=== PATIENT | male | born 1955 | race Caucasian/White ===

== ENCOUNTER 2022-02-26 07:56 | Outpatient (REF) | payer OTHER, SELFPAY ==
[2022-02-26 11:54] LABS: MANUAL DIFF FLAG NO
[2022-02-26 11:56] LABS: Appearance Urine CLOUDY; Color Urine YELLOW; Glucose Urine UA NEG (NEG); Leukocyte Esterase Urine 1+ (NEG); Nitrite Urine NEG (NEG); Specific Gravity - Urine 1.025 (1.005-1.025); Urine Blood TRACE (NEG); Urine Ketones NEG (NEG); Urine Protein NEG (NEG-TRACE)
[2022-02-26 12:08] LABS: Basophils Percent Auto 0.4 % (0-2); Eosinophils Absolute Auto 0.1 X10*3/uL (0.0-0.4); Eosinophils Percent Auto 1.6 % (0-4); Hematocrit 40.7 % (42.0-52.0); Hemoglobin 13.6 g/dl (14.0-18.0); Imm Gran Abs Auto 0.01 X10*3/uL (0.00-0.03); Imm Gran Pct Auto 0.2 % (0.0-0.4); Lymphocytes Absolute Auto 1.6 X10*3/uL (1.2-4.9); Lymphocytes Percent Auto 28.3 % (20-40); Mean Corpuscular HGB Conc 33.4 g/dl (31.0-36.0); Mean Corpuscular Hemoglobin 32.5 pg (27.0-33.0); Mean Corpuscular Volume 97.1 fL (80.0-98.0); Mean Platelet Volume 9.7 fL (9.4-12.4); Monocytes Absolute Auto 0.4 X10*3/uL (0.1-1.2); Monocytes Percent Auto 7.3 % (2-11); Neutrophils Absolute Auto 3.5 x10*3/uL (2.0-8.3); Neutrophils Percent Auto 62.2 % (45-73); Platelet Count 275 X10*3/uL (160-400); Red Blood Count 4.19 X10*6/uL (4.60-5.80); Red Cell Distribution Width 12.4 % (11.0-16.0); White Blood Count 5.6 X10*3/uL (4.8-10.8)
[2022-02-26 12:24] LABS: Alanine Aminotransferase 27 U/L (0-40); Albumin Level 4.1 g/dL (3.5-5.0); Alkaline Phosphatase 60 U/L (39-117); Anion Gap 13 (12-20); Aspartate Amino Transferase 23 U/L (5-37); Blood Urea Nitrogen 13 mg/dL (9-16); Calcium 9.1 mg/dL (8.4-10.2); Carbon Dioxide 24 mmol/L (22-29); Chloride 104 mmol/L (96-108); Cholesterol 168 mg/dL; Estimated Glomerular Filt Rate > 60; Glucose Fasting 101 mg/dL (60-99); HDL Cholesterol 48 mg/dL; LDL Cholesterol Calculated 108 mg/dl; Potassium 4.1 mmol/L (3.3-5.1); Sodium 137 mmol/L (135-145); Total Protein 7.2 g/dL (6.5-8.0); Triglycerides 63 mg/dL
[2022-02-26 12:42] LABS: Amorphous Sediment Urine 2+ /LPF; Bacteria Urine 1+ /LPF; RBC Urine 0-2 /HPF (0)
[2022-02-26 12:46] LABS: PSA,Total (Free>4and<10) 1.13 ng/mL (0.00-4.00); Thyroid Stimulating Hormone 1.72 uIU/mL (0.32-4.0); Vitamin D 25-OH Total 35.6 ng/mL (>30)
== END 2022-02-26 07:57 | disposition home or self-care (01) ==
LOC: HO.HMGCLDS 07:56
PROVIDERS: PCP Internal Medicine; Visit Provider Internal Medicine
DX: Z00.00 Encounter for general adult medical examination without abnormal findings (principal); Z12.5 Encounter for screening for malignant neoplasm of prostate; E78.00 Pure hypercholesterolemia, unspecified; E55.9 Vitamin D deficiency, unspecified
CPT/HCPCS: 36415; 80053; 80061; 81001; 82306; 84153; 84443; 85025

== ENCOUNTER 2023-01-20 11:21 | Outpatient (REF) | payer OTHER, SELFPAY ==
--- NOTE | ~2023-01-20 | XR_ITS ---
EXAMINATION: XR CHEST CLINICAL INFORMATION: Asbestos exposure. COMPARISON: Chest radiographs dated 05/18/2013. TECHNIQUE: 2 views of the chest were obtained. FINDINGS: No significant abnormality is noted involving the heart, lungs, mediastinum, bony thorax or soft tissues. XR/XR chest 2V IMPRESSION: No acute cardiopulmonary process.
== END 2023-01-20 11:22 | disposition home or self-care (01) ==
LOC: HO.HMGCX 11:21
PROVIDERS: PCP Internal Medicine; Visit Provider Internal Medicine
DX: Z77.090 Contact with and (suspected) exposure to asbestos (principal)
CPT/HCPCS: 71046

== ENCOUNTER 2023-02-07 07:20 | Outpatient (REF) | payer OTHER, SELFPAY ==
--- NOTE | ~2023-02-07 | CT_ITS ---
EXAMINATION: CT CHEST WITHOUT CONTRAST CLINICAL INFORMATION: Asbestos exposure COMPARISON: Previous chest CTA March 2008 and chest x-ray December 2022 TECHNIQUE: Multidetector volumetric CT imaging of the chest was done. Axial MIP volume rendering provided. Sagittal and coronal reformatted images were obtained. This CT examination was performed using dose optimization techniques as appropriate, variously including the following: *Automated exposure control *Adjustment of mA and/or kV according to patient size (this includes techniques or standardized protocols for targeted exams where dose is matched to indication/reason for exam; i.e. 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 The lungs are otherwise clear. No evidence of interstitial lung disease/asbestosis, emphysema or bronchiectasis. No endobronchial or endotracheal lesion. MEDIASTINUM: Small mediastinal lymph nodes. No enlarged lymph nodes. Normal heart size. Mild coronary artery and aortic valve calcification. No pericardial effusion. Normal caliber thoracic aorta. CORONARY ARTERY CALCIFICATION: Present, mild PLEURA: There is no pleural effusion. No pleural mass or thickening. No pleural calcification. AXILLA: No lymphadenopathy. UPPER ABDOMEN: Unremarkable. OSSEOUS STRUCTURES: Mild degenerative changes of the spine. CT/CT chest wo IV con IMPRESSION: No evidence of asbestos related pleural or pulmonary disease. Mild aortic valve and coronary artery calcification. Fleischner guidelines were followed.
== END 2023-02-07 07:21 | disposition home or self-care (01) ==
LOC: HO.CT 07:20
PROVIDERS: PCP Internal Medicine; Visit Provider Internal Medicine
DX: Z77.090 Contact with and (suspected) exposure to asbestos (principal)
CPT/HCPCS: 71250

== ENCOUNTER 2023-08-24 12:25 | Day surgery (SDC) | payer MEDICARE, SELFPAY ==
[2023-08-22 13:36] VITALS: BMI 29.4
--- NOTE | 2023-08-23 10:59 | P.CONAN_ITS ---
Documented by User: Terri Hoang NP 08/23/23 10:59 HPI - Anesthesia Eval Consult details Narrative: 68yo M for Colonoscopy [facility] Past Medical History Medical History Elevated cholesterol Surgical History Surgical History H/O colonoscopy Hx of cystoscopy Hx of knee surgery Hx of umbilical hernia repair Social History Social History (Updated 08/22/23 @ 13:26 by Daija Churchill RN) Household Members: Spouse Patient Tobacco Use Status: Never used Tobacco Use of substances other than those prescribed or required for medical reasons: No Are you DNR?: No Advance Directives: No Advance Directives Information Provided: Yes Meds Allergies Allergy/AdvReac Type Severity Reaction Status Date / Time Penicillins Allergy Mild RASH Verified 08/24/23 12:50 Home Medications Medication Instructions Recorded Confirmed Last Taken Type atorvastatin 40 mg tablet 40 mg PO DAILY 08/22/23 08/24/23 08/22/23 History cholecalciferol (vitamin D3) 25 25 mcg PO DAILY 08/22/23 08/24/23 08/22/23 History mcg (1,000 unit) tablet (Vitamin D3) vitamin B complex 1 tab PO DAILY 08/22/23 08/24/23 08/22/23 History Exam Height,Weight and Vital Signs: Height 5 ft 10 in Weight 92.986 kg Assessment and Plan Assessment Anesthesia Assessment: Chart Reviewed Documented by User: Grzegorz Marcano MD 08/24/23 13:09 [facility] Past Medical History Medical History Elevated cholesterol Family History Family history of problems with anesthesia: No Surgical History Surgical History H/O colonoscopy Hx of cystoscopy Hx of knee surgery Hx of umbilical hernia repair History of Problems with Anesthesia: No Social History Social History (Updated 08/22/23 @ 13:26 by Daija Churchill RN) Household Members: Spouse Patient Tobacco Use Status: Never used Tobacco Use of substances other than those prescribed or required for medical reasons: No Are you DNR?: No Advance Directives: No Advance Directives Information Provided: Yes Meds Allergies Allergy/AdvReac Type Severity Reaction Status Date / Time Penicillins Allergy Mild RASH Verified 08/24/23 12:50 Home Medications Medication Instructions Recorded Confirmed Last Taken Type atorvastatin 40 mg tablet 40 mg PO DAILY 08/22/23 08/24/23 08/22/23 History cholecalciferol (vitamin D3) 25 25 mcg PO DAILY 08/22/23 08/24/23 08/22/23 History mcg (1,000 unit) tablet (Vitamin D3) vitamin B complex 1 tab PO DAILY 08/22/23 08/24/23 08/22/23 History Exam Airway Mallampati Class: II TM Dist: >3cm Neck ROM: Full Loose/Missing/Broken Teeth: No Heart: ok Lungs: ok Assessment and Plan Assessment Anesthesia Assessment: Anesthesia Plan Discussed Final Anesthetic Review Family History of Problems with Anesthesia: No History of Problems with Anesthesia: No NPO: Yes ASA Class: II Final Preanesthetic Review: No Changes in Pt Med Stat, Meds/Allgs Chart Reviewed, Consent Obtained/Reviewed and Anes Risks/Benef Reviewed Patient Risk: Low Procedure Risk: Low Anesthetic Plan Anesthetic Plan: MAC: and Agree w/ Assess. and Plan Disposition: Standard PACU
[2023-08-24 12:42] VITALS: BMI 30.1
[2023-08-24 13:04] VITALS: BP 144/100; PULSE 78; RESP 16; TEMP 36.1; O2SAT 98
[2023-08-24] MEDS: Lactated Ringers 1,000 ML 100 ML IVCONT (13:06)
--- NOTE | 2023-08-24 14:07 | MHC.SHP ---
Pre-Procedural Eval Section A - 24 Hr Update-Section A only Date of Service: 08/24/23 The patient is an INPATIENT: No Changes since office visit: No Cold of Flu in the past 2 weeks, No New Medical Problems, No Changes in Medication and No Patient answered all questions The patient has been examined within 24 hours of the surgical procedure. The History & Physical has been completed within 30 days and I have reviewed it.: Yes Section B - Complete if H&P > 30 days Chief Complaint: Encounter for screening for malignant neoplasm of Allergies: Allergies Allergy/AdvReac Type Severity Reaction Status Date / Time Penicillins Allergy Mild RASH Verified 08/24/23 12:50 Plan I have reviewed the history and physical and performed a pertinent physical examination on my patient. No changes have occurred unless specified. Time Spent With Patient Time: Total time managing care of this patient today ____ minutes.
[2023-08-24 14:45] VITALS: BP 116/76; PULSE 80; RESP 18; TEMP 36.3; O2SAT 96
[2023-08-24 15:00] VITALS: BP 131/86; PULSE 66; RESP 16; TEMP 36.3; O2SAT 97
--- NOTE | 2023-08-24 15:33 | OP_ITS ---
DATE OF SERVICE: 08/24/2023 SURGEON: Stuart Decker MD INDICATIONS: Colon cancer screening. PREOPERATIVE DIAGNOSIS: POSTOPERATIVE DIAGNOSIS: PROCEDURE PERFORMED: Colonoscopy to the terminal ileum with snare polypectomy and biopsy. ESTIMATED BLOOD LOSS: COMPLICATIONS: ANESTHESIA: Monitored anesthesia care. ASSISTANTS: SPECIMENS: DESCRIPTION OF PROCEDURE: A history and physical performed. The risks and benefits of the procedure were explained to the patient. Informed consent was obtained. The patient was placed in the left lateral decubitus position. A digital rectal exam was performed and was found to be normal. The Olympus pediatric video colonoscope was introduced into the rectum and advanced to the cecum. The cecum was identified by transillumination, palpation, and identification of ileocecal valve. Examination was performed. The scope was removed. He tolerated the procedure well and was returned to recovery area in stable condition. FINDINGS: The terminal ileum was examined and appeared normal. The visualized colonic mucosa was normal. The quality of the prep was good. Multiple polyps were identified and removed using combination of snare polypectomy and biopsy. These were located on the ileocecal valve, at 80 cm, 75 cm, 50 cm and 2 at 20 cm. The largest measured approximately 10 mm and was located at 75 cm. Retroflexed examination showed moderate-sized internal hemorrhoids. IMPRESSION: Colon polyps. RECOMMENDATION: Follow up the biopsy results. MD JOSE ENRIQUE Blount/NEEMA / [id number] MTDD
== END 2023-08-24 15:35 | disposition home or self-care (01) ==
PROVIDERS: PCP Internal Medicine; Visit Provider Internal Medicine Gastroenterology
PROC: 0DJD8ZZ Inspection of Lower Intestinal Tract, Via Natural or Artificial Opening Endoscopic (ICD-10-PCS; CPT 45378; principal; 2023-08-24 13:50)
DX: Z12.11 Encounter for screening for malignant neoplasm of colon (principal); Z86.010 Personal history of colon polyps; D12.4 Benign neoplasm of descending colon; D12.5 Benign neoplasm of sigmoid colon; K64.8 Other hemorrhoids; E78.00 Pure hypercholesterolemia, unspecified; Z79.899 Other long term (current) drug therapy; Z88.0 Allergy status to penicillin; Z98.890 Other specified postprocedural states
CPT/HCPCS: 45385; 45380; 88305; J2704

== ENCOUNTER 2023-09-09 08:09 | Outpatient (REF) | payer MEDICARE, SELFPAY ==
[2023-09-09 11:09] LABS: MANUAL DIFF FLAG NO
[2023-09-09 11:21] LABS: Appearance Urine Turbid; Color Urine Dark Yellow; Glucose Urine UA Negative (Negative); Leukocyte Esterase Urine Negative (Negative); Nitrite Urine Negative (Negative); PH 5.5 (5.0-9.0); Specific Gravity - Urine 1.025 (1.005-1.025); Urine Blood Negative (Negative); Urine Ketones Negative (Negative); Urine Protein Negative (Neg-Trace)
[2023-09-09 11:52] LABS: Prostate Specific Antigen 1.98 ng/mL (<0.05-4.0)
[2023-09-09 11:59] LABS: Alanine Aminotransferase 31 U/L (0-40); Albumin Level 3.9 g/dL (3.5-5.0); Alkaline Phosphatase 77 U/L (39-117); Anion Gap 12 (12-20); Aspartate Amino Transferase 25 U/L (5-37); Bilirubin Total 0.6 mg/dL (0.0-1.0); Blood Urea Nitrogen 11 mg/dL (9-16); Carbon Dioxide 26 mmol/L (22-29); Chloride 107 mmol/L (96-108); Cholesterol 180 mg/dL (<200); Estimated Glomerular Filt Rate > 60; Glucose Fasting 106 mg/dL (60-99); HDL Cholesterol 51 mg/dL (>40); LDL Cholesterol Calculated 117 mg/dL (<100); Potassium 4.1 mmol/L (3.3-5.1); Sodium 141 mmol/L (135-145); Thyroid Stimulating Hormone 2.49 uIU/mL (0.32-4.0); Total Protein 7.2 g/dL (6.5-8.0); Triglycerides 63 mg/dL (<150); Vitamin D 25-OH Total 36.6 ng/mL (>30)
[2023-09-09 12:14] LABS: Basophils Percent Auto 0.7 % (0-2); Eosinophils Absolute Auto 0.1 X10*3/uL (0.0-0.4); Eosinophils Percent Auto 2.2 % (0-4); Hematocrit 42.6 % (42.0-52.0); Hemoglobin 14.2 g/dl (14.0-18.0); Imm Gran Abs Auto 0.03 X10*3/uL (0.00-0.03); Imm Gran Pct Auto 0.5 % (0.0-0.4); Lymphocytes Absolute Auto 1.7 X10*3/uL (1.2-4.9); Lymphocytes Percent Auto 28.6 % (20-40); Mean Corpuscular HGB Conc 33.3 g/dl (31.0-36.0); Mean Corpuscular Hemoglobin 32.5 pg (27.0-33.0); Mean Corpuscular Volume 97.5 fL (80.0-98.0); Mean Platelet Volume 8.2 fL (9.4-12.4); Monocytes Absolute Auto 0.5 X10*3/uL (0.1-1.2); Monocytes Percent Auto 8.5 % (2-11); Neutrophils Absolute Auto 3.6 x10*3/uL (2.0-8.3); Neutrophils Percent Auto 59.5 % (45-73); Platelet Count 528 X10*3/uL (160-400); Red Blood Count 4.37 X10*6/uL (4.60-5.80); Red Cell Distribution Width 12.4 % (11.0-16.0)
== END 2023-09-09 08:10 | disposition home or self-care (01) ==
LOC: HO.HMGCLDS 08:09
PROVIDERS: PCP Internal Medicine; Visit Provider Internal Medicine
DX: Z12.5 Encounter for screening for malignant neoplasm of prostate (principal); E78.00 Pure hypercholesterolemia, unspecified; E55.9 Vitamin D deficiency, unspecified
CPT/HCPCS: 36415; 80053; 80061; 81003; 82306; 84153; 84443; 85025

== ENCOUNTER 2024-04-11 11:43 | Outpatient (REF) | payer MEDICARE, SELFPAY ==
[2024-04-11 11:56] LABS: MANUAL DIFF FLAG NO
[2024-04-11 13:31] LABS: Basophils Percent Auto 0.4 % (0-2); Eosinophils Absolute Auto 0.1 X10*3/uL (0.0-0.4); Eosinophils Percent Auto 1.5 % (0-4); Hematocrit 45.4 % (42.0-52.0); Hemoglobin 15.1 g/dl (14.0-18.0); Imm Gran Abs Auto 0.03 X10*3/uL (0.00-0.03); Imm Gran Pct Auto 0.4 % (0.0-0.4); Lymphocytes Absolute Auto 1.7 X10*3/uL (1.2-4.9); Lymphocytes Percent Auto 24.8 % (20-40); Mean Corpuscular HGB Conc 33.3 g/dl (31.0-36.0); Mean Corpuscular Hemoglobin 32.5 pg (27.0-33.0); Mean Corpuscular Volume 97.6 fL (80.0-98.0); Mean Platelet Volume 8.6 fL (9.4-12.4); Monocytes Absolute Auto 0.6 X10*3/uL (0.1-1.2); Monocytes Percent Auto 8.6 % (2-11); Neutrophils Absolute Auto 4.4 x10*3/uL (2.0-8.3); Neutrophils Percent Auto 64.3 % (45-73); Platelet Count 414 X10*3/uL (160-400); Red Blood Count 4.65 X10*6/uL (4.60-5.80); Red Cell Distribution Width 12.4 % (11.0-16.0); White Blood Count 6.9 X10*3/uL (4.8-10.8)
== END 2024-04-11 11:44 | disposition home or self-care (01) ==
LOC: HO.LAB 11:43
PROVIDERS: PCP Internal Medicine; Visit Provider Internal Medicine
DX: Z00.00 Encounter for general adult medical examination without abnormal findings (principal); E78.00 Pure hypercholesterolemia, unspecified; E55.9 Vitamin D deficiency, unspecified
CPT/HCPCS: 36415; 85025

== ENCOUNTER → 2024-04-18 12:43 | Outpatient (REF) | payer MEDICARE, SELFPAY ==
--- NOTE | 2024-04-18 12:49 | CA_ITS ---
Transthoracic Echocardiogram Patient (Last, First, Middle): Tesfaye Carl James Gender: Male Date of : 1955 Age: 68 Procedure Date: 04/18/2024 Procedure Type: Transthoracic Echocardiogram Location: OP Height: 180.34 cm Weight: 90.72 kg BSA: 2.11 m2 Heart Rate: bpm BP: 110 / 60 mmHg National Sales: TO Referring MD: Tesfaye Cortez DO Symptoms: R01.1 SYSTOLIC MURMUR Study Quality: Adequate w/contrast ECG Rhythm: Atrial Fibrillation Conclusions: - The left ventricular systolic function is low normal. The visually estimated ejection fraction is between 50-55%. - There is mild calcification of the aortic valve. - There is mild mitral annular calcification. - Small plaque is seen in the sino tubular ridge. Findings Procedure Information Contrast agent, definity, is being given per protocol without apparent complications. Left Ventricle Normal left ventricular cavity size. There is mildly increased left ventricular wall thickness. The left ventricular systolic function is low normal. The visually estimated ejection fraction is between 50-55%. There is no evidence of regional wall motion abnormalities. Diastolic function is indeterminate on the basis of available data. Right Ventricle Normal right ventricular cavity size and systolic function. Atria The left atrium is mildly dilated. The right atrium is normal in size. Aortic Valve There is a normal trileaflet aortic valve. There is mild calcification of the aortic valve. There is no aortic valve stenosis. There is no aortic valve regurgitation. Mitral Valve There is mild mitral annular calcification. There is trace mitral valve regurgitation. There is no mitral valve stenosis. Pulmonic Valve The pulmonic valve is likely normal. Tricuspid Valve There is trace tricuspid valve regurgitation. Tricuspid regurgitation envelope is inadequate for calculation of right ventricular systolic pressure. Great Vessels Small plaque is seen in the sino tubular ridge. Top normal ascending aortic size. Venous The inferior vena cava is normal in size and collapses greater than 50% with inspiration. Pericardium/Pleural There is no evidence of pericardial effusion. Prior Study Comparison No prior study available for comparison. Measurements 2D Linear Measurements IVSd: 1.35 0.6-0.9/0.6-1.0 cm LVIDd: 4.07 3.9-5.3/4.2-5.9 cm LVIDd Index: 1.93 2.4-3.2/2.2-3.1 cm/m2 LVIDs: 2.89 2.0-3.6 cm LVPWd: 1.07 0.7-1.1 cm LA Diam: 3.40 2.7-3.8/3.0-4.0 cm LAIDs Index: 1.61 1.5-2.3 cm/m2 LV Mass: 214.18 67-162/88-224 g LV Mass Index: 101.51 43-95/49-115 g/m2 LVOT Diam: 2.30 3.0+(-)1.3 cm 2D Systolic Function EF 4C: 53.40 >55% EF 2C: 50.40 >55% EF BiP: 50.20 >55% Mitral Valve MV Pk E: 0.85 MV Decel Time: 161.00 E'Lateral: 11.30 E'Medial: 9.38 E/E' Med: 9.00 E/E' Lat: 7.50 PHT: 47.00 MVA PHT: 4.68 Decel Fillmore: 5.41 Aortic Valve AoV Pk Neeraj: 1.24 AoV Pk Grad: 6.00 LVOT LVOT Pk Neeraj: 0.75 LVOT Mn Neeraj: 0.54 LVOT VTI: 0.14 LVOT Pk Grad: 2.00 LVOT Mn Grad: 1.00 LVOT Diam: 2.30 LVOT Area: 4.15 Diastolic Function MV Pk E: 0.85 E'Medial: 9.38 E/E' Med: 9.00 E' Laterial: 11.30 E/E' Lat: 7.50 Right Ventricle TAPSE (mm): 11.10 TVS' Neeraj: 18.90 Tricuspid Valve RA Press: 3.00 Great Vessels Aorta Sinus of Valsalva: 4.13 2.0-3.[address] Ridge: 2.90 1.7-3.4 cm Ao Asc: 3.70 2.1-3.4 cm Updated in Other Vendor System with Status of Final Jared Knapp MD electronically signed on 04/19/2024 12:53:23 PM with status of Final
== END ==
LOC: HO.CARD 12:43
PROVIDERS: PCP Internal Medicine; Visit Provider Internal Medicine
DX: R01.1 Cardiac murmur, unspecified (principal)
CPT/HCPCS: 93306; Q9957

== ENCOUNTER → 2024-04-18 12:49 | Outpatient (BNV) | payer MEDICARE, SELFPAY | PROVIDERS: PCP Internal Medicine; Visit Provider Internal Medicine | DX: I35.8 Other nonrheumatic aortic valve disorders (principal); I34.81 Nonrheumatic mitral (valve) annulus calcification | CPT/HCPCS: 93306 ==

== ENCOUNTER → 2024-04-20 12:25 | Outpatient (REF) | payer MEDICARE, SELFPAY ==
--- NOTE | 2024-04-20 12:35 | ECG_ITS ---
Test Reason : outpatient check up Blood Pressure : / mmHG Vent. Rate : 070 BPM Atrial Rate : 070 BPM P-R Int : 196 ms QRS Dur : 092 ms QT Int : 402 ms P-R-T Axes : 046 -06 041 degrees QTc Int : 434 ms Normal sinus rhythm Normal ECG When compared with ECG of 17-AUG-2012 11:51, T wave inversion no longer evident in Inferior leads Referred By: Tesfaye Cortez Electronically Signed By:TESFAYE MAHAJAN
== END ==
LOC: HO.CARD 12:25
PROVIDERS: PCP Internal Medicine; Visit Provider Internal Medicine
DX: E78.00 Pure hypercholesterolemia, unspecified (principal)
CPT/HCPCS: 93005

== ENCOUNTER → 2024-05-08 08:23 | Outpatient (REF) | payer MEDICARE, SELFPAY ==
--- NOTE | 2024-05-08 08:26 | HM_ITS ---
* Total monitoring time 3 days. * Underlying rhythm is sinus with an average rate of 88/Min. * Frequent supraventricular ectopy with a burden of 5%. * Frequent ventricular ectopy with a burden of 2.9%. Rare couplets, triplets, bigeminy, trigeminy. * Mobitz type 1 second-degree heart block noted during sleep hours. * No patient markers or diary events. MTDD
== END ==
LOC: HO.CARD 08:23
PROVIDERS: PCP Internal Medicine; Visit Provider Internal Medicine
DX: I48.0 Paroxysmal atrial fibrillation (principal)
CPT/HCPCS: 93242

== ENCOUNTER → 2024-05-08 08:26 | Outpatient (BNV) | payer MEDICARE, SELFPAY | PROVIDERS: PCP Internal Medicine; Visit Provider Internal Medicine | DX: I47.10 Supraventricular tachycardia, unspecified (principal) | CPT/HCPCS: 93244 ==

== ENCOUNTER 2024-05-22 14:59 | Outpatient (AMB) | payer MEDICARE, SELFPAY ==
[2024-05-22 15:02] VITALS: BP 128/70; PULSE 78; BMI 28.2
--- NOTE | 2024-05-22 15:02 | MHC.OFFVIS ---
Vital Signs 05/22/24 15:02 Height 5 ft 10 in Weight 196 lb 3.382 oz BMI 28.2 BP 128/70 Blood Pressure Location Lt brachial Position Sitting Pulse 78 Pulse Source Pulse Oximeter Intake Visit Reasons: requested by Hs Allergies Penicillins Allergy (Mild, Verified 08/24/23 12:50) RASH Medication List - Last Reconciled 05/22/24 by Jared Knapp MD atorvastatin 40 mg PO DAILY cholecalciferol (vitamin D3) (Vitamin D3) 25 mcg PO DAILY vitamin B complex 1 tab PO DAILY HPI Comments Details: Tesfaye is here for consultation regarding arrhythmias. He had an echocardiogram for evaluation of cardiac murmur and it was felt that the rhythm during that study was atrial fibrillation. However, patient does not have a history of atrial fibrillation. His baseline EKG just shows sinus rhythm and a follow-up Holter only shows supraventricular/ventricular ectopy. Hence not entirely clear if it truly had atrial fibrillation during the echocardiogram or as the just frequent ectopy that appear to be possible atrial fibrillation. Any case, patient states he feels fine. He has no cardiac history or symptoms. However, almost 5-6 family members in your family have atrial fibrillation-mainly uncles. [facility] Medical History (Updated 05/22/24 @ 15:43 by Jared Knapp MD) Elevated cholesterol Surgical History H/O colonoscopy Hx of cystoscopy Hx of knee surgery Hx of umbilical hernia repair Family History (Updated 05/22/24 @ 15:05 by Farzana Neumann) Father Heart attack Social History (Updated 05/22/24 @ 15:06 by Farzana Neumann) Household Members: Spouse Alcohol intake: current Alcohol intake frequency: 0-2 drinks per day Patient Tobacco Use Status: Never used Tobacco Review of Systems Const Denies weakness ENT Denies dizziness Card Denies chest pain, Denies chest pain with activity, Denies syncope, Denies rapid heart rate, Denies pedal edema, Denies edema, Denies leg edema, Denies lightheadedness, Denies palpitations, Denies dyspnea, Denies dyspnea on exertion and Denies orthopnea Resp Denies cough, Denies dyspnea and Denies dyspnea on exertion GI Denies hematochezia and Denies change in stool character Musc Denies abnormal gait, Denies muscle cramps, Denies muscle weakness, Denies numbness, Denies radiating pain into limb and Denies tingling Neuro Denies abnormal gait, Denies dizziness, Denies syncope, Denies numbness, Denies tingling and Denies weakness Endo Denies palpitations Physical Exam Vital Signs: Last Vital Signs Pulse 78 05/22/24 15:02 BP 128/70 05/22/24 15:02 BMI result Body Mass Index 28.2 Const General: comfortable and no acute distress Orientation/consciousness: patient oriented x3 HEENT Other: Unremarkable Head: Yes normal to inspection Neck Neck: Yes normal visual inspection Chest Chest palpation & inspection: normal inspection of the chest Resp Auscultation: clear to auscultation bilaterally Cardio Palpation: normal PMI Heart sounds: S1 normal heart sound present, S2 normal heart sound present, no gallops, Murmur heart sound present systolic II/ and at the right sternal border and no rubs GI Palpation (GI): Soft to palpation Back/Spine/Pelvis Other: unremarkable Skin General skin exam: no rashes or lesions noted Neuro General: patient oriented x3 Extrem General: Yes normal to inspection Psych Mental Status: mental status grossly normal Assessment & Plan Assessment & Plan (1) Atrial arrhythmia: Code(s): I49.8 - Other specified cardiac arrhythmias Category: Medical (2) PVCs (premature ventricular contractions): Code(s): I49.3 - Ventricular premature depolarization Category: Medical (3) Aortic valve calcification: Code(s): I35.9 - Nonrheumatic aortic valve disorder, unspecified Category: Medical Plan Cardiac studies reviewed. In the echocardiogram, rhythm possibly atrial fibrillation but cannot distinguish if it is just frequent PACs. LVEF is 50-55%. Mildly dilated left atrium. Mild aortic/mitral calcification. Small plaque in the sinotubular ridge. In the EKG, underlying rhythm is sinus at 70/Min; no significant ST-T changes and otherwise unremarkable. In the Holter monitor, frequent supraventricular/ventricular ectopy noted. Mobitz type 1 second-degree heart block during sleep hours. Overall, suggestion of atrial fibrillation on the rhythm strip during echocardiogram but Holter showing frequent supraventricular/ventricular ectopy. Findings discussed with patient. Suggested longer duration monitor, about 30 days. If that is also unremarkable, we can just possibly monitor him. We will hold off on empiric anticoagulation at this time. He also has a relatively low thromboembolic risk. Due to frequent PVCs, we can get a stress test to look for any NSVT as well as any perfusion abnormalities of significance. Follow-up after the above. Orders: Orders ECG 30 day event monitor Today I48.0 - Paroxysmal atrial fibrillation CA stress test Today I49.3 - Ventricular premature depolarization NM cardiolite stress test Today I49.3 - Ventricular premature depolarization Coding Level of Care Code New Pt Level 4 (82046) Diagnoses Atrial arrhythmia I49.8 PVCs (premature ventricular contractions) I49.3 Aortic valve calcification I35.9
== END 2024-05-22 15:27 | disposition home or self-care (01) ==
LOC: HO.HCS 14:59
PROVIDERS: PCP Internal Medicine; Visit Provider Internal Medicine
DX: I49.8 Other specified cardiac arrhythmias (principal); I49.3 Ventricular premature depolarization; I35.9 Nonrheumatic aortic valve disorder, unspecified
CPT/HCPCS: 99214

== ENCOUNTER → 2024-05-22 14:59 | Outpatient (BNVA) | payer MEDICARE, SELFPAY | PROVIDERS: PCP Internal Medicine; Visit Provider Internal Medicine | DX: I49.3 Ventricular premature depolarization (principal); I49.8 Other specified cardiac arrhythmias; I48.0 Paroxysmal atrial fibrillation; I35.9 Nonrheumatic aortic valve disorder, unspecified | CPT/HCPCS: 99212 ==

== ENCOUNTER → 2024-05-28 10:58 | Outpatient (REF) | payer MEDICARE, SELFPAY ==
--- NOTE | 2024-05-28 11:00 | HM_ITS ---
Cardiac event monitor Indication: Paroxysmal atrial fibrillation Technique: Patient was monitored from 05/28/2024 to 06/27/2024 for total period of 30 days. Where time was 19.7 days Findings: Baseline was normal sinus rhythm with average heart rate of 74 beats per minute. No significant bradycardia or pauses were noted. Intermittent episodes of atrial fibrillation noted with total burden of 1.04%, with the fastest heart rate during atrial fibrillation of 127 beats per minute. Occasional PACs noted with total burden of less than 1%. Occasional PVCs noted with total burden of less than 1%. Few salvos of wide complex rhythm noted, few were during episodes of atrial fibrillation which could represent aberrant conduction. One was during sinus rhythm which could represent nonsustained VT, at 3 beats Patient reported 1 event during the ventricular triplet. Patient reported to other events during sinus rhythm and 1 event during a PAC. Conclusion: 1. Baseline was normal sinus rhythm with no significant pauses 2. Intermittent episodes of atrial fibrillation with total burden of 1.04% 3. Occasional PACs and PVCs noted with wide complex salvos suggestive of nonsustained VT 4. Patient reported multiple events not consistent with arrhythmias at all time MTDD
== END ==
LOC: HO.CARD 10:58
PROVIDERS: PCP Internal Medicine; Visit Provider Internal Medicine
DX: I48.0 Paroxysmal atrial fibrillation (principal)
CPT/HCPCS: 93270

== ENCOUNTER → 2024-05-28 11:00 | Outpatient (BNV) | payer MEDICARE, SELFPAY | PROVIDERS: PCP Internal Medicine; Visit Provider Internal Medicine Cardiovascular Disease | DX: I48.91 Unspecified atrial fibrillation (principal); I49.1 Atrial premature depolarization; I49.3 Ventricular premature depolarization | CPT/HCPCS: 93272 ==

== ENCOUNTER → 2024-08-13 07:52 | Outpatient (REF) | payer MEDICARE, SELFPAY ==
--- OUTSIDE RECORDS SUMMARY | 2024-08-13 07:55 | XMS_ITS | Continuity of Care Document ---
Author Organization [facility], [facility] 2nd floor Address [address] [place] [address] Care Team Providers Care Production Aide Name Role Phone FINN WALTERS Primary Care Provider Assessment No assessment recorded. Plan of Treatment Reminders Order Date Submit Date Provider Last Modified By Organization Details Last Modified Time Details Appointments None record ed. Lab None record ed. Referral None record ed. Procedures None record ed. Surgeries None record ed. Imaging None record ed. Medication Orders None record ed. Patient TargetsNo targets recorded. Patient InstructionsNo instructions recorded. Reason for Referral None Reported. Procedures Surgical History Date Name Laterality Status Provider Name and Address Organization Details Recorded Time 4 Sports Shoulder 4&1 completed Fabián Blackburn MD [address] [facility] [address], [place], [address], [facility] 04/12/2024 11:54:28 Imaging Results None recorded. Procedure Notes None recorded. Medical Equipment None Reported. Allergies Allergen ID Allergen Name Allergen Category Reaction Reaction Severity Criticality Documentation Date Start Date Code Code System Note Provider Name and Address Organization Details Recorded Time 475124 Product containin g penicilli n and antibioti c (product) medicatio n Not available Not available Not available 01/10/2024 19721 05 SNOMED KARINA gautam, [facility] 4 16:29:24 Medications Name Sig Start Date Stop Date Status Note LastModified by Organization Details LastModified Time atorvastati n 40 mg tablet TAKE 1 TABLET BY MOUTH EVERY DAY FOR 90 DAYS active Not Available Not Available No t Available azithromyci n 250 mg tablet TAKE 2 TABLETS BY MOUTH TODAY, THEN TAKE 1 TABLET DAILY FOR 4 DAYS 06/18 /2024 completed Not Available Not Available Not Available fluocinonid e 0.05 % topical gel PLEASE SEE ATTACHED FOR DETAILED DIRECTION S 08/09 completed Not Available Not Available Not Available meloxicam 15 mg tablet TAKE 1 TABLET EVERY DAY BY ORAL ROUTE AFTER MEAL(S). 08/09 completed Not Available Not Available Not Available fluorouraci l 5 % topical cream PLEASE SEE ATTACHED FOR DETAILED DIRECTION S active Not Available Not Available No t Available fluocinonid e 0.05 % topical ointment PLEASE SEE ATTACHED FOR DETAILED DIRECTION S active Not Available Not Available No t Available triamcinolo ne acetonide 0.1 % topical cream PLEASE SEE ATTACHED FOR DETAILED DIRECTION S 08/09 completed Not Available Not Available Not Available cholecalcif gene (vitamin D3) 25 mcg (1,000 unit) capsule TAKE 1 CAPSULE BY MOUTH EVERY DAY FOR 90 DAYS active Not Available Not Available No t Available Vitamin D3 25 mcg (1,000 unit) tablet TAKE 1 TABLET BY MOUTH EVERY DAY active Not Available Not Available No t Available tadalafil 20 mg tablet TAKE 1 TABLET BY MOUTH EVERY DAY NEEDED FOR 30 DAYS active Not Available Not Available No t Available metoprolol tartrate 25 mg tablet TAKE 1 TABLET BY MOUTH TWICE DAILY active Not Available Not Available No t Available Eliquis 5 mg tablet TAKE 1 TABLET BY MOUTH TWICE A DAY active Not Available Not Available No t Available Vitals Date Recorded Body height Body mass index (BMI) Body weight Provider Name and Address Organization Details Last Updated DateTime 05/23/2024 180.34 cm 27.9 kg/m2 81754.47 g Ruy Naranjo PA-C [address] [place] [address] [address], [place], [address], [place] - [facility] 05/23/2024 08:40:57 Social History None recorded. Functional Status None recorded. Mental Status None recorded. Family History Nothing Reported. Medical History Condition Response Allergies/Hayfever N Coronary Artery Disease N Anxiety/Depression N Breathing or lung disorders N Emphysema N Nerve Disorders N Thyroid Problems N COPD N Pacemaker N Anemia N Kidney/Bladder Problems N Vascular Disease N Heart Trouble N Heart Attack ([place]) N Gastrointestinal Disease N Cholesterol Y Diabetes N Autoimmune disease N Inflammatory Joint disease N Bleeding Disorder N Orthotics N Arthritis N Seizures/Epilepsy N Blood Clot N AIDS/HIV N Congestive Heart Failure (CHF) N Acid Reflux (GERD) N Cancer N Stroke N Asthma N Circulation Problems N Peripheral Vascular Disease N Sleep Apnea N Hepatitis N Heart Disease N Rheumatoid Arthritis N Arrhythmia N Pulmonary Embolism N Headaches N Fibromyalgia N Hypertension N Osteoporosis N Past Encounters Encounter ID Performer Location Encounter Start Date Encounter Closed Date Diagnosis/Indication Diagnosis SNOMED-CT Code Diagnosis ICD10 Code Diagnosis Note [id number] [facility] 2nd floor [address] [place] [address] 05/23/2024 08:30:53 06/14/2024 14:12:04 Calcific tendinitis of left shoulder [id number] 63368 M75.32 Health Concerns Section Related Observation LastModified by Organization Detai ls LastModified Time None Recorded Concern Status LastModified by Organization Details LastModified Time None Recorded Payers Encounter Date Sequence Insurance Name Policy Number Policy Ernandez Covered Member ID Ernandez Member ID Guarantor Name 05/23/2024 1 [facility]: MEDIC[place] BLUE (MEDICARE REPLACEMENT PPO) [id number] Finn Ramirez Siddhartha [id number] Finn Carl Notes Date Note Type Note Provider Name and Address Organization Details Recorded Time 05/23/2024 text/html I am seeing the patient today under the supervision of Dr. Blackburn who was available but who did not see the patient.Finn dominguez left shoulder calcific tendinopathy doing well. Prior injection by Dr. Blackburn resolve symptoms.Past family, medical, social history and review of systems has been reviewed, updated and is located in the patient? s chart.Examination: ROM full, 5/5 strength including rotator cuff and periscapular musculature. Good Muscle bulk and strength without atrophy. No evidence of instability of the shoulder. Negative impingement signs. Negative AC joint tenderness. Negative Speed's, Negative O'briens, Negative Zuri.Impression: Resolved left shoulder pain secondary to calcific tendinopathyPlan: Discussed slow transition her normal activities. Follow up us as needed. Ruy Naranjo PA-C [address], [place], [address], [facility] - [facility] 05/23/2024 09:08:13
--- OUTSIDE RECORDS SUMMARY | 2024-08-13 07:55 | XMS_ITS | Data Portability ---
Author Organization [facility], [facility] Address [address] [place] [address] Care Team Providers Care Butadiene Converter Utility Operator Name Role Phone FINN WALTERS Primary Care Provider Assessment Encounter Date Assessment Date Assessment LastModified by Organization Details LastModified Time 04/12/2024 04/12/2024 Dx:Left shoulder calcific tendinitis Interval History:68-year-old gentleman, several year history of left shoulder pain with diminished motion, atraumatic onset, no trreatment to date. SocHx: nonsmoker, nondrinker Past Medical/Surgical History/Meds/Allerg ies reviewed and charted ROS: negative Physical Exam: afebrile, vital signs stable, in no apparent distress, oriented to person/place/time. Gait symmetric. Skin intact without erythema. Heart RRR Lungs: clear Abdomen soft, nontender. LeftSHOULDER: no redness, warmth, deformity. Range of motion 50%full in all planes with Pain beyond. Strength 5/5 all muscle groups. Apprehension negative. Impingement sign Positive. Acromioclavicular joint nontender without irritability with cross body adduction. Neurovascular Exam wnl. Contralateral SHOULDER: no redness, warmth, deformity. Range of motion full in all planes with no stiffnes. Strength 5/5 all muscle groups. Apprehension negative. Impingement sign negative. Acromioclavicular joint nontender without irritability to cross body adduction. Neurovascular Exam wnl. New Studies: 4 views left shoulder, moderate calcific deposit supraspinatus insertion Impression:Left shoulder calcific tendinitis Plan: 1.Left shoulder(s) was/were prepped with Betadine and injected subacromially with 1cc Kenalog 40mg/cc and 8cc ??% Marcaine without complication. The patient tolerated the procedure well. 2. Follow-up 6 weeks, consider arthroscopy if still symptomatic [facility] speech recognition ict teacher software was used to create portions of this document. An attempt at proofreading has been made to minimize errors. Please call for corrections. [email or web address] Not available 04/12/2024 11:53:59 Plan of Treatment Reminders Order Date Submit Date Provider Last Modified By Organization Details Last Modified Time Details Appointments None recorded. Lab None recorded. Referral None recorded. Procedures None recorded. Surgeries None recorded. Imaging XR, knee, 4 or more view - ROOM 1 2023 024 [email or web address] [facility], [address], [place], [address], 4 08:28:57 XR, shoulder, 2 or more view - 4v lt shoulder room 213 2023 024 [email or web address] [facility], [address], [address], [place], [address], 4 11:45:57 Medication Orders None recorded. Patient TargetsNo targets recorded. Patient InstructionsNo instructions recorded. Reason for Referral None Reported. Results Created Date Observation Date Name Description Value Unit Range Abnormal Flag Note LastModifiedBy Organization Detail LastModifiedTime 01/10/2001/10/2024 XR, knee, 4 or more view [email or web address] ?Encry pted=s hAaTro YD8dLq bEUv6g %2BXZw aYqtaq 0bqfl% 2Fg9IQ a4ajBk vP9nXo QUaueC m3YtLR FvZlgJ JJ8mAn HZtai3 8x5344 AC0Kub HmMWaP eUC8mr 84%3D INTERFACE [facility] [address], [place], [address], 01/10/2024 09:26:08 01/10/20 24 01/10/2024 XR, knee, 4 or more view http:/ [email or web address] ?Encry pted=s hAaTro YD8dLq bEUv6g %2BXZw aYqtaq 0bqfl% 2Fg9IQ a4ajBk vP9nXo QUaueC m3YtLR FvZlgJ JJ8mAn HZtai3 5a2850 AC0Kub HmMWaP eUC8mr 84%3D INTERFACE [facility] [address], [place], [address], 01/10/2024 09:26:10 01/13/20 24 01/11/2024 MRI, knee, w/o contr ast No observ ation record ed. BRIAN [facility] [place] [address] [facility] [address], [place], [address], 01/13/2024 13:52:51 04/12/20 24 04/12/2024 XR, shoul rio, 2 or more view [email or web address]:/ [email or web address] ?Encry pted=s hAaTro YD8dLq bEUv6g %2BXZw aYqtaq 0bqfl% 2Fg9IQ a4ajBk vP9nXo QUaueC m3YtLR FvZl JJ8[place] HZtai3 0a4832 AC0Kqa nuHVqu lKiQtr MwF INTERFACE [facility] [address] [facility] [address] [address], [place], [address], 04/12/2024 11:21:04 04/12/20 24 04/12/2024 XR, shoul rio, 2 or more view http:/ [email or web address] ?Encry pted=s hAaTro YD8dLq bEUv6g %2BXZw aYqtaq 0bqfl% 2Fg9IQ a4ajBk vP9nXo QUaueC m3YtLR FvZlgJ JJ8mAn HZtai3 9f2202 AC0Kqa nuHVqu lKiQtr MwF INTERFACE [facility] [address], [place], [address], 04/12/2024 11:21:07 Result Notes None recorded. Procedures Surgical History Date Name Laterality Status Provider Name and Address Organization Details Recorded Time Sports Shoulder 4&1 completed Fabián Blackburn MD [address], [place], [address], [place] - [facility] 04/12/2024 11:54:28 Imaging Results Imaging Date Name Status LastModified by Organiz ation Details LastModified Time 01/10/2024 XR, knee, 4 or more view completed [facility] [address], [place], [address], 01/10/2024 09:26:08 01/10/2024 XR, knee, 4 or more view completed [facility] [address], [place], [address], 01/10/2024 09:26:10 01/11/2024 MRI, knee, w/o contrast completed BRIAN [facility] [place] [address], [place], [address], 01/13/2024 13:52:51 04/12/2024 XR, shoulder, 2 or more view completed [facility] [address], [place], [address], 04/12/2024 11:21:04 04/12/2024 XR, shoulder, 2 or more view completed [facility] [address], [place], [address], 04/12/2024 11:21:07 Procedure Notes None recorded. Medical Equipment None Reported. Allergies Allergen ID Allergen Name Allergen Category Reaction Reaction Severity Criticality Documentation Date Start Date Code Code System Note Provider Name and Address Organization Details Recorded Time 169602 Product containin g penicilli n and antibioti c (product) medicatio n Not available Not available Not available 01/10/2024 93399 05 SNOMED KARINA gautam [place] - [facility] 16:29:24 Medications Name Sig Start Date Stop Date Status Note LastModified by Organization Details LastModified Time atorvastati n 40 mg tablet TAKE 1 TABLET BY MOUTH EVERY DAY FOR 90 DAYS active Not Available Not Available No t Available azithromyci n 250 mg tablet TAKE 2 TABLETS BY MOUTH TODAY, THEN TAKE 1 TABLET DAILY FOR 4 DAYS 01/09 completed Not Available Not Available Not Available [...] and Address Organization Details Last Updated DateTime 01/10/2024 180.34 cm 28.6 kg/m2 35587.44 mariano ROCA [facility] 01/10/2024 09:20:41 Date Recorded Body height Body mass index (BMI) Body weight Provider Name and Address Organization Details Last Updated DateTime 01/18/2024 180.34 cm 28.6 kg/m2 81051.44 mariano ROCA [facility] 01/18/2024 10:55:58 Date Recorded Body height Body mass index (BMI) Body weight Provider Name and Address Organization Details Last Updated DateTime 04/12/2024 180.34 cm 27.9 kg/m2 56917.47 g CHRISTIANO COLLINS [facility] 04/12/2024 11:10:02 Date Recorded Body height Body mass index (BMI) Body weight Provider Name and Address Organization Details Last Updated DateTime 05/23/2024 180.34 cm 27.9 kg/m2 75664.47 g Ruy Naranjo PA-C [address], [place], [address], [facility] 05/23/2024 08:40:57 Date Recorded Body height Body mass index (BMI) Body weight Provider Name and Address Organization Details Last Updated DateTime 08/09/2024 180.34 cm 27.9 kg/m2 62867.47 g Betzaida Hernandez [facility] 08/09/2024 14:03:07 Social History None recorded. Functional Status None recorded. Mental Status None recorded. Family History Nothing Reported. Medical History Condition Response Allergies/Hayfever N Coronary Artery Disease N Anxiety/Depression N Breathing or lung disorders N Emphysema N Nerve Disorders N Thyroid Problems N COPD N Pacemaker N Anemia N Kidney/Bladder Problems N Vascular Disease N Heart Trouble N Heart Attack ([place]) N Gastrointestinal Disease N Cholesterol Y Diabetes [...] SNOMED-CT Code Diagnosis ICD10 Code Diagnosis Note [id number] [facility] 3rd floor [address] [place] [address] 01/10/2024 08:22:25 02/15/2024 08:28:56 Pain of left knee joint [id number] 09287 M25.099 [id number] [facility] 1st [address] [place] [address] 01/18/2024 10:37:22 02/22/2024 11:05:01 [id number] Fabián Blackburn MD [facility] 2nd floor [address] [place] [address] 04/12/2024 10:49:59 05/03/2024 11:45:57 Pain of left shoulder joint 8128288738 8230096 M25.200 [id number] [facility] 2nd floor [address] [place] [address] 05/23/2024 08:30:53 06/14/2024 14:12:04 Calcific tendinitis of left shoulder 8365366916 19576 M75.32 [id number] [facility] [address] [place] [address] 08/09/2024 13:50:00 08/09/2024 14:25:29 Calcific tendinitis of left shoulder 7836650504 09562 M75.32 Health Concerns Section Related Observation LastModified by Organization Detai ls LastModified Time None Recorded Concern Status LastModified by Organization Details LastModified Time None Recorded Advance Directives Directive None Recorded Payers Encounter Date Sequence Insurance Name Policy Number Policy Ernandez Covered Member ID Ernandez Member ID Guarantor Name 01/10/2024 1 [employer]MEDICARE [place]AC[place] PPO) [id number] Finn Carl [id number] 07 [facility] 01/18/2024 1 [employer] PPO) [id number] Finn Ramirez Siddhartha [id number] 07 [facility] 04/12/2024 1 [place] PPO) [id number] Finn Ramirez Siddhartha [id number] 07 [facility] 05/23/2024 1 [place] PPO) [id number] Finn Ramirez Siddhartha [id number] 07 [facility] 08/09/2024 1 [place] PPO) [id number] Finn Carl [id number] 07 [facility] Notes Date Note Type Note Provider Name and Address Organization Details Recorded Time 01/10/2024 text/html I am seeing the patient today under the supervision of Dr. Hernández who was available but who did not see the patient. DX: 1. Medial joint pain, left knee-rule out medial meniscus tear2. Left patellofemoral arthrosis HPI:68-year-old male here for orthopedic consultation. He is complaining of medial left knee pain for the past 3 weeks. Denies any falls or trauma. Pain is not severe enough to take any ibuprofen or Tylenol. No restriction in range of motion. Pain worse. He gets out of bed first thing in the morning. Has not been icing. Past family, medical, social history and review of systems has been reviewed, updated and is located in the patient? s chart. Examination: Left knee- A+O x3 non antalgic gaitNo effusion, warmth, or erythemaROM 0-130 degressNo retropatella crepitance+ Medial joint line TTPNo collateral ligmant instability with varus or valgus stressNeg Yuridia testNeg McMurrays maneuverCalf soft - TTPCompartments soft - TTPDF/PF intactN/V intact right knee reveals no soft tissue swelling , erythema or ecchymosis. Range of motion is full. Neurovascular intact. X-rays ordered, obtained and reviewed at [facility] 4 views of the left knee reveals preserve spacing of the medial and lateral compartments. Minimal space narrowing. There is patellofemoral joint Impression/Plan:Find ings on the situation discussed. Treatment options were discussed. Recommended an MRI to evaluate for a medial meniscus tear. Patient will take ibuprofen 600 mg t.i.d. ? 3 days, then p.r.n. He will ice if needed. He will follow-up after his MRI Magdalene Jain PA-C [address] [facility] [address], [place], [address], [facility] - [facility] 01/10/2024 09:50:34 01/18/2024 text/html I am seeing the patient today under the supervision of Dr. Hernández who was available but who did not see the patient. DX: 1. Medial joint pain, left knee2. Left patellofemoral arthrosis HPI:68-year-old male here for Here for evaluation. He continues to have medial left knee pain. Ibuprofen. Alleviate the pain, however, he does not like to take pills. He did have an MRI on 01/11/2024 that confirmed some degenerative changes of the medial meniscus without an obvious tear. There was fluid within the patellofemoral joint. Degenerative changes noted of the patellofemoral joint Past family, medical, social history and review of systems has been reviewed, updated and is located in the patient? s chart. Examination: Left knee- A+O x3 non antalgic gaitNo effusion, warmth, or erythemaROM 0-130 degressNo retropatella crepitance+ Medial joint line TTPNo collateral ligmant instability with varus or valgus stressNeg Yuridia testNeg McMurrays maneuverCalf soft - TTPCompartments soft - TTPDF/PF intactN/V intact right knee reveals no soft tissue swelling , erythema or ecchymosis. Range of motion is full. Neurovascular intact. MRI of the left knee was reviewed by myself and the patient. No obvious meniscal tear but degenerative changes noted within the body Impression/Plan:Find ings on the situation discussed. Treatment options were discussed. Patient will hold off on a corticosteroid injection. His prescribe meloxicam daily p.r.n. He will follow up in 3 weeks for reexamination. If he is doing well, he may cancel his appointment Magdalene Jain PA-C [address] [facility] [address], [place], [address], [facility] - [facility] 01/18/2024 11:13:41 05/23/2024 text/html I am seeing the patient today under the supervision of Dr. Blackburn who was available but who did not see the patient.Finn returns left shoulder calcific tendinopathy doing well. Prior injection by Dr. Blackburn resolve symptoms.Past family, medical, social history and review of systems has been reviewed, updated and is located in the patient? s chart.Examination:RO M full, 5/5 strength including rotator cuff and periscapular musculature. Good Muscle bulk and strength without atrophy. No evidence of instability of the shoulder. Negative impingement signs. Negative AC joint tenderness. Negative Speed's, Negative O'briens, Negative Zuri.Impression: Resolved left shoulder pain secondary to calcific tendinopathyPlan: Discussed slow transition her normal activities. Follow up us as needed. Ruy Naranjo PA-C [address], [place], [address], [facility] 05/23/2024 09:08:13 08/09/2024 text/html I am seeing the patient today under the supervision of Dr. Recio who was available but who did not see the patient.Finn returns regarding the left shoulder calcific tendinopathy. Unfortunately, he has become symptomatic again and would like to explore more definitive treatment options.Past family, medical, social history and review of systems has been reviewed, updated and signed by me and is located in the patient? s chart.Examination: Painful but full range of motion, positive impingement arc of impingement signs. Mild tenderness of the AC joint. No focal rotator cuff weakness. No instabilityImpressio n:. Left shoulder calcific tendinopathyPlan: Reviewed and discussed findings and appropriate care. At this time. We will have him follow up with Dr. Blackburn did discuss proceeding with arthroscopy, excision of calcium. The potential need for obtaining a preoperative MRI. Ruy Naranjo PA-C [address], [place], [address], [facility] 08/09/2024 14:25:27
--- OUTSIDE RECORDS SUMMARY | 2024-08-13 07:55 | XMS_ITS | Continuity of Care Document ---
Author Organization [facility], MARGARITO Kelly Clinical Address [address] [place] [address] Care Team Providers Care Button Cutting Machine Operator Name Role Phone FINN WALTERS Primary [...] Sports Shoulder 4&1 completed Fabián Blackburn MD [address] [place] [address] [address], [place], [address], [facility] 04/12/2024 11:54:28 Imaging Results None recorded. Procedure Notes None recorded. Medical Equipment None Reported. Allergies Allergen ID Allergen Name Allergen Category Reaction Reaction Severity Criticality Documentation Date Start Date Code Code System Note Provider Name and Address Organization Details Recorded Time [id number] Product containin g penicilli n and antibioti c (product) medicatio n Not available Not available Not available 01/10/2024 45628 05 SNOMED KARINA gautam, [facility] 4 16:29:24 Medications Name Sig Start Date [...] Updated DateTime 08/09/2024 180.34 cm 27.9 kg/m2 74421.47 g Betzaida Hernandez [place] - [facility] 08/09/2024 14:03:07 Social History None recorded. Functional Status None recorded. Mental Status None recorded. Family History Nothing Reported. Medical History Condition Response Allergies/Hayfever N Coronary Artery Disease N Breathing or lung disorders N Anxiety/Depression N Emphysema N Nerve Disorders N Thyroid Problems N COPD N Pacemaker N Kidney/Bladder Problems N Anemia N Vascular Disease N Heart Trouble N Gastrointestinal Disease N Heart Attack (MS) N Cholesterol Y Diabetes N Autoimmune disease N Bleeding Disorder N Inflammatory Joint disease N Orthotics N Arthritis N Seizures/Epilepsy N [...] SNOMED-CT Code Diagnosis ICD10 Code Diagnosis Note [id number] [facility] [address] [place] [address] 08/09/2024 13:50:00 08/09/2024 14:25:29 Calcific tendinitis of left shoulder [id number] 50630 M75.32 Health Concerns Section Related Observation LastModified by Organization Detai ls LastModified Time None Recorded Concern Status LastModified by Organization Details LastModified Time None Recorded Payers Encounter Date Sequence Insurance Name Policy Number Policy Ernandez Covered Member ID Ernandez Member ID Guarantor Name 08/09/2024 1 [facility]: MEDICARE PPO BLUE (MEDICARE REPLACEMENT PPO) [id number] Finn Ramirez Siddhartha [id number] Finn Carl Notes Date Note Type Note Provider Name and Address Organization Details Recorded Time 08/09/2024 text/html I am seeing the patient [...] joint. No focal rotator cuff weakness. No instabilityImpress ion:. Left shoulder calcific tendinopathyPlan: Reviewed and discussed findings and appropriate care. At this time. We will have him follow up with Dr. Blackburn did discuss proceeding with arthroscopy, excision of calcium. The potential need for obtaining a preoperative MRI. Ruy Naranjo PA-C [address] [place] [address] [address], [place], [address], [facility] - [facility] 08/09/2024 14:25:27
--- NOTE | 2024-08-13 07:56 | CA_ITS ---
Acquisition Time: 2024-08-13 08:13:04 Total Exercise Time: 00:06:00 Test Indications: Abnormal ECG PVC'S Medications: ATORVASTATIN Protocol: VALDO Max HR: 157 BPM 102% of Pred: 153 BPM Max BP: 184/76 mmHG Max Work Load: 7.0 METS Exercise Stress Test with exercise 6 mins of Valdo Protocol, achieving 98% MPHR, with reports of mild SOB, no chest discomfort, with isolated PAC, with normotensive response to exercise. Without EKG changes meeting criteria for ischemia. In recovery, breathing returned to baseline. Test reviewed with Dr. Krishnamurthy. Referred By: Jared Knapp Electronically Signed By: Trey Paul
== END ==
LOC: HO.CARD 07:52
PROVIDERS: PCP Internal Medicine; Visit Provider Nurse Practitioner Family
DX: I49.3 Ventricular premature depolarization (principal)
CPT/HCPCS: 93017

== ENCOUNTER → 2024-08-13 07:56 | Outpatient (BNV) | payer MEDICARE, SELFPAY | PROVIDERS: PCP Internal Medicine | DX: R06.02 Shortness of breath (principal); I49.1 Atrial premature depolarization | CPT/HCPCS: 93016; 93018 ==

== ENCOUNTER 2024-08-23 13:18 | Outpatient (AMB) | payer MEDICARE, SELFPAY ==
[2024-08-23 13:22] VITALS: BP 114/50; PULSE 60; BMI 29.0
--- NOTE | 2024-08-23 13:22 | A.OFFVIS_ITS ---
Vital Signs 08/23/24 13:22 Height 5 ft 10 in Weight 202 lb 6.15 oz BMI 29.0 BP 114/50 L Blood Pressure Location Lt brachial Position Sitting Pulse 60 Pulse Source Pulse Oximeter Intake Visit Reasons: Preop/Corsetti/3 mth f/up holter/ nuc Labor Commissioner Required: No Accompanied by: Self / Same As Patient Allergies Penicillins Allergy (Mild, Verified 08/24/23 12:50) RASH Medication List - Last Reconciled 08/23/24 by Jared Knapp MD apixaban 5 mg PO BID atorvastatin 40 mg PO DAILY cholecalciferol (vitamin D3) (Vitamin D3) 25 mcg PO DAILY metoprolol tartrate 25 mg PO BID HPI Comments Details: Tesfaye returns for follow-up. Recently seen in consultation regarding arrhythmias. He actually came for an echocardiogram for evaluation of cardiac murmur and that showed atrial fibrillation in the accompanying rhythm strip. Following this, he underwent a 30 day monitor that actually showed atrial fibrillation rapid ventricular rate. Then he was put on beta-blockers and Eliquis. Patient himself has no symptoms from this. He also has no angina or in fact any cardiac symptoms. No known coronary disease or myocardial infarction or cardiomyopathy. However, almost 5-6 family members in his family have atrial fibrillation-mainly uncles. [facility] Medical History (Updated 08/23/24 @ 13:45 by Jared Knapp MD) Elevated cholesterol Surgical History H/O colonoscopy Hx of cystoscopy Hx of knee surgery Hx of umbilical hernia repair Family History Father Heart attack Social History Household Members: Spouse Alcohol intake: current Alcohol intake frequency: 0-2 drinks per day Patient Tobacco Use Status: Never used Tobacco Review of Systems Const Denies chills, Denies fatigue, Denies fever(s), Denies weight gain and Denies weight loss ENT Denies dizziness Card Denies chest pain, Denies leg edema, Denies lightheadedness, Denies palpitations, Denies dyspnea on exertion, Denies orthopnea and Denies other Resp Denies cough and Denies dyspnea on exertion GI Denies hematochezia and Denies change in stool character Musc Denies abnormal gait, Denies muscle weakness, Denies numbness, Denies radiating pain into limb and Denies tingling Neuro Denies abnormal gait, Denies dizziness, Denies numbness and Denies tingling Endo Denies fatigue and Denies palpitations Physical Exam Vital Signs: Last Vital Signs Pulse 60 08/23/24 13:22 BP 114/50 L 08/23/24 13:22 BMI result Body Mass Index 29.0 Const General: comfortable and no acute distress Orientation/consciousness: patient oriented x3 HEENT Other: Unremarkable Head: Yes normal to inspection Neck Neck: Yes normal visual inspection Chest Chest palpation & inspection: normal inspection of the chest Resp Auscultation: clear to auscultation bilaterally Cardio Palpation: normal PMI Heart sounds: S1 normal heart sound present, S2 normal heart sound present, no gallops, no murmurs and no rubs GI Palpation (GI): Soft to palpation Back/Spine/Pelvis Other: unremarkable Skin General skin exam: no rashes or lesions noted Neuro General: patient oriented x3 Extrem General: Yes normal to inspection Psych Mental Status: mental status grossly normal Assessment & Plan Assessment & Plan (1) PAF (paroxysmal atrial fibrillation): Code(s): I48.0 - Paroxysmal atrial fibrillation Category: Medical (2) Atrial arrhythmia: Code(s): I49.8 - Other specified cardiac arrhythmias Category: Medical (3) PVCs (premature ventricular contractions): Code(s): I49.3 - Ventricular premature depolarization Category: Medical (4) Aortic valve calcification: Code(s): I35.9 - Nonrheumatic aortic valve disorder, unspecified Category: Medical Plan Cardiac studies reviewed. In the echocardiogram, rhythm possibly atrial fibrillation but cannot distinguish if it is just frequent PACs. LVEF is 50-55%. Mildly dilated left atrium. Mild aortic/mitral calcification. Small plaque in the sinotubular ridge. In the EKG, underlying rhythm is sinus at 70/Min; no significant ST-T changes and otherwise unremarkable. In the Holter monitor, frequent supraventricular/ventricular ectopy noted. Mobitz type 1 second-degree heart block during sleep hours. 30 day monitor with intermittent atrial fibrillation with a burden of about 1%. Rapid rates noted. There is mention of some wide complex rhythm but could be just aberrant conduction. In the exercise stress test, he was able to do 7 METS and reached target heart rate. No angina. No EKG evidence of ischemia. Perfusion part was not done because of insurance issues. Overall, paroxysmal atrial fibrillation but without any overt symptoms. Continue beta-blockers and anticoagulation. No specific management for the PVCs and just continue beta-blockers. There is plan for shoulder surgery and may proceed. Low to intermediate cardiac risk. May hold the last 4 doses of Eliquis. We will repeat another Holter to ensure the arrhythmia is controlled before surgery. Also get a home sleep study to assess for obstructive sleep apnea as there were some atrial fibrillation/rapid rates at nighttime as well. Discussed with significant other. Orders: Orders RT home sleep study Today G47.33 - Obstructive sleep apnea (adult) (pediatric) ECG 3 day holter monitor Today I48.0 - Paroxysmal atrial fibrillation Coding Level of Care Code Est Pt Level 4 (87739) Diagnoses PAF (paroxysmal atrial fibrillation) I48.0 Atrial arrhythmia I49.8 PVCs (premature ventricular contractions) I49.3 Aortic valve calcification I35.9
--- OUTSIDE RECORDS SUMMARY | 2024-08-23 17:10 | XMS_ITS | Patient Health Record ---
Author Organization [facility] Address [address] [place] [address] Care Team Providers Care College Sports Assistant Name Role Phone Diego (RETIRED) Finn CASSIDY Primary Care Provid er Unavailable Stuart Decker Jr Unavailable [phone] ALLERGIES Allergen (clinical drug ingredient) Drug/Non Drug Allergy documented on EMR Reaction Allergy Type Onset Date Status Penicillin Unknown Drug Allergy Active RESULTS Component Value Reference Range Notes Pathology Reviewed date:09/01/2023 11:27:41 AM Interpretation: Performing Lab:[facility], [address] [place] [id number] Notes/Report: REASON FOR REFERRAL No Information MEDICATIONS Medication SIG (Take, Route, Fr equency, Duration) Notes Start Date End Date Status Complex B-100 - as directed Orally Active Simvastatin 40 MG 1 tablet in the even ing Orally Once a day Active Vitamin D 1000 UNIT 1 tablet Orally Once a day Active IMMUNIZATIONS Vaccine Route Administration Date Status Comme nts Influenza Unknown 07/25/2023 Administered SOCIAL HISTORY Tobacco Use: Social History Observation Description Date Details (start date - stop date) Never Smoker NA - NA Sex Assigned At : Social History Observation Description Sex Assigned At Unknown Tobacco Use/Smoking Question Answer Notes Patient is a nonsmoker Alcohol Screen Question Answer Notes Did you have a drink contain ing alcohol in the past year? Yes How often did you have a dri nk containing alcohol in the past year? 2 to 4 times a month (2 points) How many drinks did you have on a typical day when you were drinking in the past year? 3 or 4 drinks (1 point) How often did you have 6 or more drinks on one occasion in the past year? Never (0 point) Points 3 Interpretation Negative PROBLEMS Problem Type ICD Code Onset Dates Problem Status W/U Status Risk SNOMED Code Notes Problem Colon cancer screening (Z12.11) Active confirmed 144477737 Problem Personal history of colonic polyps (Z86.010) Active confirmed 596141973 Problem Encounter for other preprocedural examination (Z01.818) Active confirmed 782090205 Encounters Encounter Location Date Provider Diagnosis [facility] [address] [place] [phone] 08/24/2023 Stuart Decker Jr Encounter for screening colonoscopy Z12.11 ; Personal history of colonic polyps Z86.010 and Colon polyps K63.5 [facility] [address] [place] [address] 09/01/2023 Stuart Decker Jr ASSESSMENTS Encounter Date Diagnosis Assessment Notes Treatment Notes Treatment Clinical Notes 08/24/2023 Encounter for screening colonoscopy (ICD-10 - Z12.11) 08/24/2023 Personal history of colonic polyps (ICD-10 - Z86.010) 08/24/2023 Colon polyps (ICD-10 - K63.5) PLAN OF TREATMENT Future Test Test Name Order Date COLONOSCOPY 02/22/2018 COLONOSCOPY 08/10/2023 Insurance Providers Payer Name Payer Address Payer Phone Subscriber Number Group Number Insured Name Patient Relationship to Insured Coverage Start Date Coverage End Date [facility] [address] [address] [place] [address] [phone] [id number] FINN BASILIO Self - patient is the insured MEDICAL (GENERAL) HISTORY Medical History History ICD Code Hyperlipidemia Colon polyps, colonoscopy 07/11, tubular adenomas x2, three-year followup. Surgical History Surgery Date(Month/Year) hernia repair umbilical hernia repair knee surgery-right kidney stone removal
--- OUTSIDE RECORDS SUMMARY | 2024-08-23 17:10 | XMS_ITS ---
Author Organization [facility] Address [address] [place] [address] Care Team Providers Care Quilt Sewer Name Role Phone Diego (RETIRED) Finn CASSIDY Primary Care Provid er Unavailable Stuart Decker Jr [phone] REASON FOR VISIT screening, hx polyps Encounters Encounter Location Date Provider Diagnosis [facility] [place] [facility] [address] [place], [place] [phone] 08/24/2023 Stuart Decker Jr Encounter for screening colonoscopy Z12.11 ; Personal history of colonic polyps Z86.010 and Colon polyps K63.5 ASSESSMENTS Encounter Date Diagnosis Assessment Notes Treatment Notes Treatment Clinical Notes 08/24/2023 Encounter for screening colonoscopy (ICD-10 - Z12.11) 08/24/2023 Personal history of colonic polyps (ICD-10 - Z86.010) 08/24/2023 Colon polyps (ICD-10 - K63.5) PLAN OF TREATMENT No Information
--- OUTSIDE RECORDS SUMMARY | 2024-08-23 17:10 | XMS_ITS ---
Author Organization [facility] Address [address] [place] [address] Care Team Providers Care Cashier Checker Name Role Phone Diego (RETIRED) Finn CASSIDY Primary Care Provid er Unavailable Stuart Decker Jr Unavailable [phone] ALLERGIES Allergen (clinical drug ingredient) Drug/Non Drug Allergy documented on EMR Reaction Allergy Type Onset Date Status Penicillin Unknown Drug Allergy Active REASON FOR VISIT Patient presents today for a COLON RECALL MEDICATIONS Medication SIG (Take, Route, Fr equency, Duration) Notes Start Date End Date Status Complex B-100 - as directed Orally Active Simvastatin 40 MG 1 tablet in the even ing Orally Once a day Active Vitamin D 1000 UNIT 1 tablet Orally Once a day Active SOCIAL HISTORY Tobacco Use: Social History Observation [...] W/U Status Risk SNOMED Code Notes Problem Personal history of colonic polyps (Z86.010) Active confirmed 478693017 Problem Encounter for other preprocedural examination (Z01.818) Active confirmed 019580808 VITAL SIGNS BMI 28.59 kg/m2 08/10/2023 Blood pressure systolic 000 mm Hg 08/10/19 24 Blood pressure diastolic 00 mm Hg 024 Height 71 in 08/10/2023 Temperature 99.1 degrees Fahrenheit 08/10/19 24 Weight 205 lbs 08/10/2023 Encounters Encounter Location Date Provider Diagnosis [facility] [address] [place] [address] 08/10/2023 Stuart Decker Jr Colon cancer screening Z12.11 ; Encounter for other preprocedural examination Z01.818 and Personal history of colonic polyps Z86.010 ASSESSMENTS Encounter Date Diagnosis Assessment Notes Treatment Notes Treatment Clinical Notes 08/10/2023 Colon cancer screening (ICD-10 - Z12.11) 08/10/2023 Encounter for other preprocedural examination (ICD-10 - Z01.818) Colonoscopy material was printed 08/10/2023 Personal history of colonic polyps (ICD-10 - Z86.010) PLAN OF TREATMENT Treatment Notes Assessment Notes Encounter for other preprocedural examin ation Colonoscopy material was printed Future Test Test Name Order Date COLONOSCOPY 08/10/2023 Next Appt Details Follow Up: 1 Year, Reason: Progress Notes * Examination Category Sub-Category Detail Notes General Examination GENERAL APPEARANCE: in no ac john distress HEAD: normocephalic EYES: sclera non-icteric NECK/THYROID: no lymphadenopathy HEART: S1, S2 normal, no mu rmurs CHEST: normal shape and exp ansion LUNGS: clear to auscultatio n bilaterally ABDOMEN: soft, nontender, non distended, bowel sounds present, no organomegaly SKIN: anicteric EXTREMITIES: no clubbing, cyanosi s, or edema PSYCH: cognitive function i ntact ORAL CAVITY: mucosa moist
--- OUTSIDE RECORDS SUMMARY | 2024-08-23 17:10 | XMS_ITS ---
Author Organization Tesfaye Cortez DO, FACP Address [address] [place], [place] [id number] Care Team Providers Care Career Development Facilitator Name Role Phone Tesfaye Cortez Primary Care Provider REASON FOR REFERRAL Reason Cardiac ectopy/?atri al fibrillation Diagnosis 1 Paroxysmal atrial fi brillation (I48.0) Referral Organization Tes[facility] Culp, [facility] Referring Provider First Name Tesfaye Referring Provider Last Name Diego Referring Provider Speciality Internal M edicine Referred Provider Tiffanie Knapp Referred Provider Specialty Cardiovascul ar Disease General Notes HeatherMichaelRebeca 10:14:04 AM EDT > Referral faxed and patient is aware that office will contact him. Referral Priority Routine REASON FOR VISIT Message to self SOCIAL HISTORY Sex Assigned At : Social History Observation Description Sex Assigned At Male Encounters Encounter Location Date Provider Diagnosis Tesfaye Cortez DO [facility] [address] [place], [place] [phone] 05/21/2024 Tesfaye Cortez Paroxysmal atrial fibrillation I48.0 ASSESSMENTS Encounter Date Diagnosis Assessment Notes Treatment Notes Treatment Clinical Notes 05/21/2024 Paroxysmal atrial fibrillation (ICD-10 - I48.0) PLAN OF TREATMENT Referrals Referral Date Details Cardiac ectopy/?atri al fibrillationJared Consultation Request Notes Referral Date Referring Provider Referred Provider Chicho farrar 05/21/2024 Tesfaye Cortez Hariharan Ca rdiac ectopy/?atrial fibrillation
--- OUTSIDE RECORDS SUMMARY | 2024-08-23 17:11 | XMS_ITS ---
Author Organization Tesfaye Cortez DO [facility] Address [address] [place], [place] [phone] Care Team Providers Care Division Controller Name Role Phone Tesfaye Cortez Primary Care Provider [phone] REASON FOR VISIT 1 month f/u MEDICATIONS Medication SIG (Take, Route, Frequency, Duration) Notes Start Date End Date Status Atorvastatin Calcium 40 MG 1 tablet Oral ly Once a day Active Vitamin D3 25 MCG (1000 UT) 1 capsule Or ally Once a day Active Tadalafil 20 MG 1 tablet as needed O rally Once a day Active Nicotinamide 750-27-2-0.5 MG 1 tablet Orally Once a day for 90 days Active Ibuprofen 800 MG 1 tablet with food o r milk as needed Orally Three times a day 07/05/2018 Active SOCIAL HISTORY Sex Assigned At : Social History Observation Description Sex Assigned At Male VITAL SIGNS BMI 28.44 kg/m2 05/16/2024 Blood pressure systolic 118 mm Hg 05/16/20 24 Blood pressure diastolic 64 mm Hg 024 Height 69.25 in 05/16/2024 Weight 194 lbs 05/16/2024 Encounters Encounter Location Date Provider Diagnosis Tesfaye Cortez DO, FACP [address] [place], [place] [phone] 05/16/2024 Tesfaye Cortez PLAN OF TREATMENT No Information
--- OUTSIDE RECORDS SUMMARY | 2024-08-23 17:11 | XMS_ITS ---
Author Organization Tesfaye Cortez DO, FACP Address [address] [place], [place] [phone] Care Team Providers Care Infection Prevention Coordinator Name Role Phone Tesfaye Cortez Primary Care Provider REASON FOR VISIT Message to self SOCIAL HISTORY Sex Assigned At : Social History Observation Description Sex Assigned At Male Encounters Encounter Location Date Provider Diagnosis Tesfaye Cortez DO, [facility] [address] [place], [place] [phone] 04/23/2024 Tesfaye Cortez Paroxysmal atrial fibrillation I48.0 ASSESSMENTS Encounter Date Diagnosis Assessment Notes Treatment Notes Treatment Clinical Notes 04/23/2024 Paroxysmal atrial fibrillation (ICD-10 - I48.0) PLAN OF TREATMENT Pending Test Test Name Order Date Holter Monitor 04/23/2024
--- OUTSIDE RECORDS SUMMARY | 2024-08-23 17:11 | XMS_ITS ---
Author Organization [facility] Address [address] [place] [address] Care Team Providers Care Insurance Producer Name Role Phone Diego (RETIRED) Finn CASSIDY Primary Care Provid er Unavailable Stuart Decker Jr [phone] REASON FOR VISIT pathology Encounters Encounter Location Date Provider Diagnosis [facility] [address] [place] [address] 09/01/2023 Stuart Decker Jr PLAN OF TREATMENT No Information
== END 2024-08-23 13:55 | disposition home or self-care (01) ==
PROVIDERS: PCP Internal Medicine; Visit Provider Internal Medicine
DX: I48.0 Paroxysmal atrial fibrillation (principal); I49.8 Other specified cardiac arrhythmias; I49.3 Ventricular premature depolarization; I35.9 Nonrheumatic aortic valve disorder, unspecified
CPT/HCPCS: 99214

== ENCOUNTER → 2024-08-23 13:18 | Outpatient (BNVA) | payer MEDICARE, SELFPAY | PROVIDERS: PCP Internal Medicine; Visit Provider Internal Medicine | DX: I48.0 Paroxysmal atrial fibrillation (principal); I49.8 Other specified cardiac arrhythmias; I49.3 Ventricular premature depolarization; I35.9 Nonrheumatic aortic valve disorder, unspecified; G47.33 Obstructive sleep apnea (adult) (pediatric); Z79.01 Long term (current) use of anticoagulants | CPT/HCPCS: 99212 ==

== ENCOUNTER → 2024-08-29 09:22 | Outpatient (BNV) | payer MEDICARE, SELFPAY | PROVIDERS: Visit Provider Internal Medicine | DX: I47.10 Supraventricular tachycardia, unspecified (principal) | CPT/HCPCS: 93244 ==

== ENCOUNTER → 2024-10-23 11:02 | Outpatient (REF) | payer MEDICARE, SELFPAY ==
--- OUTSIDE RECORDS SUMMARY | 2024-10-23 13:19 | XMS_ITS ---
Author Organization [facility] Address [address] [place] [address] Care Team Providers Care Theology Teacher Name Role Phone Diego (RETIRED) Finn CASSIDY Primary Care Provid er Unavailable Stuart Decker Jr Unavailable Allergies Allergen (clinical drug ingredient) Drug/Non Drug Allergy documented on EMR Reaction Allergy Type Onset Date Status Penicillin Unknown Drug Allergy Active REASON FOR VISIT Patient presents today for a COLON RECALL Medications Medication SIG (Take, Route, Fr equency, Duration) Notes Start Date End Date Status Complex B-100 - as directed Orally Active Simvastatin 40 MG 1 tablet in the even ing Orally Once a day Active Vitamin D 1000 UNIT 1 tablet Orally Once a day Active Social History Tobacco Use: Social History Observation Description Date Details (start date - stop date) Never Smoker NA - NA Tobacco Use/Smoking Question Answer Notes Patient is [...] Never (0 point) Points 3 Interpretation Negative Problems Problem Type SNOMED Code ICD Code Onset Dates Problem Status W/U Status Risk Notes Problem 631722836 Personal history of colonic polyps (Z86.010) Active confirmed Problem 737190069 Encounter for other preprocedural examination (Z01.818) Active confirmed Vital Signs Temperature 99.1 degrees Fahrenheit 01/17/20 24 Blood pressure systolic 000 mm Hg 08/10/19 24 Blood pressure diastolic 00 mm Hg 024 Height 71 in 08/10/2023 Weight 205 lbs 08/10/2023 BMI 28.59 kg/m2 08/10/2023 Encounters Encounter Location Date Provider Diagnosis [facility] [address] [place] [address] 08/10/2023 Stuart Decker Jr Colon cancer screening Z12.11 ; Encounter for other preprocedural examination Z01.818 and Personal history of colonic polyps Z86.010 Assessments Encounter Date Diagnosis (ICD Code) Assessment Notes Treatment Notes Treatment Clinical Notes Section Notes 08/10/2023 Colon cancer screening (ICD-10 - Z12.11) We discussed colonoscopy today. We discussed her symptoms as of the procedure today. He understands these and agrees to proceed. This will be scheduled at his convenience. 08/10/2023 Encounter for other preprocedural examination (ICD-10 - Z01.818) Colonoscopy material was printed We discussed colonoscopy today. We discussed her symptoms as of the procedure today. He understands these and agrees to proceed. This will be scheduled at his convenience. 08/10/2023 Personal history of colonic polyps (ICD-10 - Z86.010) We discussed colonoscopy today. We discussed her symptoms as of the procedure today. He understands these and agrees to proceed. This will be scheduled at his convenience. Plan Of Treatment Treatment Notes Assessment Notes Encounter for other preprocedural examin ation Colonoscopy material was printed Future Test Test Name Order Date COLONOSCOPY 08/10/2023 Next Appt Details Follow Up: 1 Year, Reason: Progress Notes * FINN BASILIO ADOB: (68 yo M)Acc No.[id number]:08/10/2023 Progress Notes Patient:?FINN BASILIO Provider:?Stuart Decker MD :1955???Age:68 Y???Sex:Male Fabio e:08/10/2023 Address:[address] [place], [place] [id number] Pcp:Finn Cortez, DO Subjective: * Chief Complaints: * ???1. Patient presents today for a COLON RECALL. * HPI: ???New symptom(s):? Mr. Basilio is a pleasant 68-year-old man seen today in consultation. He has a personal history of colon polyps and underwent colonoscopy in June 2018 with removal of 2 tubular adenomas. We reviewed this today. He has no complaints of rectal bleeding and no change in his bowel habits. Weight and appetite have been stable. * ROS:?General/Constitutional:?Change in appetite?denies.?Fatigue?denies.?ENT:?Patient denies?difficulty swallowing.?Respiratory:?Patient denies?shortness of breath.?Cardiovascular:?Patient denies?chest pain.?Gastrointestinal:?Comments?See HPI for details.?Genitourinary:?Difficulty urinating?denies.?Incontinence?denies.?Musculoskeletal:?Patient denies?muscle aches.?Skin:?Patient denies?pruritis.?Neurologic:?Patient denies?low back pain.?Psychiatric:?Patient denies?mental or physical abuse.? * Medical History:?Hyperlipide linda, Colon polyps, colonoscopy 07/11, tubular adenomas x2, three-year followup.. * Surgical History:?hernia rep air , umbilical hernia repair , knee surgery-right , kidney stone removal . * Family History:?Father: dece ased, diagnosed with Heart disease.?Mother: , diagnosed with Heart disease.? No family history of colon cancer or liver cancer. * Social History:?Tobacco Use:?Tobacco Use/Smoking?Patient is a?nonsmoker.?Drugs/Alcohol:?Alcohol Screen?Did you have a drink containing alcohol in the past year??Yes,?How often did you have a drink containing alcohol in the past year??2 to 4 times a month (2 points),?How many drinks did you have on a typical day when you were drinking in the past year??3 or 4 drinks (1 point),?How often did you have 6 or more drinks on one occasion in the past year??Never (0 point),?Points?3,?Interpretation?Negative.?Miscellaneous:?Marital status: . Occupation: [employer], retired. * Medications:?Taking Complex B-100 - Tablet Extended Release as directed Orally , Taking Simvastatin 40 MG Tablet 1 tablet in the evening Orally Once a day, Taking Vitamin D 1000 UNIT Tablet 1 tablet Orally Once a day, Discontinued Colyte with Flavor Packs 240 GM Solution Reconstituted As directed Orally Over the specified time., Medication List reviewed and reconciled with the patient * Allergies:?Penicillin. Objective: * Vitals:?Wt: 205 lbs, Ht: 71 in, BMI:28.59 Index, BP: 000/00 mm Hg, Temp: 99.1. * Examination: ???General Examination: ?GENERAL APPEARANCE:?in no acute distress.?HEAD:?normocephalic.?EYES:?sclera non-icteric.?ORAL CAVITY:?mucosa moist.?NECK/THYROID:?no lymphadenopathy.?SKIN:?anicteric.?HEART:?S1, S2 normal, no murmurs.?LUNGS:?clear to auscultation bilaterally.?CHEST:?normal shape and expansion.?ABDOMEN:?soft, nontender, nondistended, bowel sounds present, no organomegaly .?EXTREMITIES:?no clubbing, cyanosis, or edema.?PSYCH:?cognitive function intact.? Assessment: * Assessment: 1.?Encounter for other prepr ocedural examination - Z01.818 (Primary)?2.?Colon cancer screening - Z12.11?3.?Personal history of colonic polyps - Z86.010? We discussed colonoscopy tod ay. We discussed her symptoms as of the procedure today. He understands these and agrees to proceed. This will be scheduled at his convenience. Plan: * Treatment: 2.?Colon cancer screening?Procedure: COLONOSCOPY (Ordered for 08/10/2023) 3.?Personal history of colonic polyps?Procedure: COLONOSCOPY (Ordered for 08/10/2023)* sched for 08/24/23 at 1:50 pm macmiralax * Procedure Codes:?3017F COLOR ECTAL CA SCREEN DOC REV, G9903 Pt scrn tbco id as non user, G9745 DOC RSN FOR NOT SCREEN/REC F/U HBP * Preventive Medicine:? ??Counseling:?Care goal follow-up plan:?Above Normal BMI Follow-up?Giving encouragement to exercise,?BMI management provided?Yes.? * Follow Up:?1 Year * * Sign off status: Completed true * Provider:?Stuart Decker MD Date:?0 08/10/2023 Generated for Yael serrano/James/eTransmitting on:?10/23/2024 01:18 PM EDT History and Physical Notes * HPI (History of Present Illness) Category Sub-Category Detail Notes Category Not es New symptom(s) Mr. Basilio is a pleasant 68-year-old man seen today in consultation. He has a personal history of colon polyps and underwent colonoscopy in June 2018 with removal of 2 tubular adenomas. We reviewed this today. He has no complaints of rectal bleeding and no change in his bowel habits. Weight and appetite have been stable. Examination Category Sub-Category Detail Notes Category Not es General Examination GENERAL APPEARANCE: in no acute di stress HEAD: normocephalic EYES: sclera non-icteric NECK/THYROID: no lymphadenopathy HEART: S1, S2 normal, no mu rmurs CHEST: normal shape and exp ansion LUNGS: clear to auscultatio n bilaterally ABDOMEN: soft, nontender, non distended, bowel sounds present, no organomegaly SKIN: anicteric EXTREMITIES: no clubbing, cyanosi s, or edema PSYCH: cognitive function i ntact ORAL CAVITY: mucosa moist
--- OUTSIDE RECORDS SUMMARY | 2024-10-23 13:19 | XMS_ITS | Patient Health Record ---
Author Organization [facility] [place] Address [address] [place] [address] Care Team Providers Care Founder Ceo & President Name Role Phone Reén Kiko Primary Care Provider Lanette Mina Unavailable [phone] Allergies Allergen (clinical drug ingredient) Drug/Non Drug Allergy documented on EMR Reaction Allergy Type Onset Date Status Penicillin rash Drug Allergy Active Reason For Referral No Information Medications Medication SIG (Take, Route, Frequency, Duration) Notes Start Date End Date Status Vitamin D 25 MCG (1000 UT) 1 tablet Oral ly Once a day Active Atorvastatin Calcium 40 MG 1 tablet Oral ly Once a day Active Metoprolol Succinate 25 MG 1 capsule Ora lly Once a day Active Eliquis 5 MG as directed Orally Active Social History Tobacco Use: Social History Observation Description Date Details (start date - stop date) Never Smoker NA - NA Tobacco use other than smoking: Question Answer Notes Are you an other tobacco user? No Tobacco Control (Standard) Question Answer Notes Tobacco use: Nonsmoker Additional Findings: Tobacco non-user Current no nsmoker AUDIT-C (Standard) Question Answer Notes Did you have a drink contain ing alcohol in the past year? Yes How often did you have a dri nk containing alcohol in the past year? Monthly or less (1 point) How many drinks did you have on a typical day when you were drinking in the past year? 1 or 2 drinks (0 point) How often did you have six o r more drinks on one occasion in the past year? Never (0 point) Points 1 Interpretation Negative Problems Problem Type SNOMED Code ICD Code Onset Dates Problem Status W/U Status Risk Notes Problem Acquired hallux valgus (65857718) Hallux valgus (acquired), right foot (M20.11) Active confirmed Vital Signs Blood pressure diastolic 78 mm Hg 10/12/2024 Height 5ft 11.5in in 10/12/2024 Blood pressure systolic 120 mm Hg 10/12/2024 Weight 195 lbs 10/12/2024 BMI 26.82 kg/m2 10/12/2024 Encounters Encounter Location Date Provider Diagnosis [facility] [place] [address] [place] [address] 10/12/2024 Lanette Perica Onychomycosis B35.1 and Hallux valgus (acquired), right foot M20.11 Assessments Encounter Date Diagnosis (ICD Code) Assessment Notes Treatment Notes Treatment Clinical Notes Section Notes 10/12/2024 Hallux valgus (acquired), right foot (ICD-10 - M20.11) 10/12/2024 Onychomycosis (ICD-10 - B35.1) Plan Of Treatment No Information Insurance Providers Payer Name Payer Address Payer Phone Subscriber Number Group Number Insured Name Patient Relationship to Insured Coverage Start Date Coverage End Date [employer] 65 Medicare Preferred [address] [place] [address] [phone] [id number] [phone] [id number] Tesfaye Carl Self - patient is the insured Medical (General) History Medical History History ICD Code Measles Mumps Chicken pox Surgical History Surgery Date(Month/Year) left shoulder sx 10/16
--- OUTSIDE RECORDS SUMMARY | 2024-10-23 13:19 | XMS_ITS ---
Author Organization [facility] Genaro skylar Arley Address [address] [place] [address] Care Team Providers Care Votator Machine Operator Name Role Phone Kiko Merritt Primary Care Provider Lanette Mina Unavailable [phone] Allergies Allergen (clinical drug ingredient) Drug/Non Drug Allergy documented on EMR Reaction Allergy Type Onset Date Status Penicillin rash Drug Allergy Active REASON FOR VISIT Fungal Nails, Foot pain Medications Medication SIG (Take, Route, Frequency, Duration) [...] Status Risk Notes Problem Acquired hallux valgus (32914885) Hallux valgus (acquired), right foot (M20.11) Active confirmed Vital Signs Height 5ft 11.5in in 10/12/2024 Weight 195 lbs 10/12/2024 BMI 26.82 kg/m2 10/12/2024 Blood pressure systolic 120 mm Hg 10/13/19 25 Blood pressure diastolic 78 mm Hg 025 Encounters Encounter Location Date Provider Diagnosis [facility] [place] [address] 10/12/2024 Lanette Mina Onychomycosis B35.1 and Hallux valgus (acquired), right foot M20.11 Assessments Encounter Date Diagnosis (ICD Code) Assessment Notes Treatment Notes Treatment Clinical Notes Section Notes 10/12/2024 Onychomycosis (ICD-10 - B35.1) 10/12/2024 Hallux valgus (acquired), right foot (ICD-10 - M20.11) Plan Of Treatment Next Appt Details Follow Up: prn, Reason: Progress Notes * Tesfaye BASILIODOB:1955 (69 yo M)Acc No.[id number]:10/12/2024 Progress Notes Patient:?Tesfaye BASILIO Provider:?Lanette Mina DPM :1955???Age:69 Y???Sex:Male Fabio e:10/12/2024 Address:[address] [place], [place] [id number] Pcp:Kiko Merritt Subjective: * Chief Complaints: * ???Fungal NailsFoot pain * HPI: ???Painful Nails:?Nature:?aching, tender, discolored, thick.?Location:?Great toe, Left foot.?Course:?worse.?Treatments:?none.?Foot Pain:?Location:?Inside, Great toe joint, RIGHT.?Duration:?several years.?Aggravated:?any pressure.?Treatments:?, change in shoes.? * ROS:?General/Constitutional:?Nausea?denies.?Vomiting?denies.?Hunger Thirst?denies.?Loss appetite?denies.?Chills?denies.?Fatigue?denies.?Fever?denies.?Night Sweats?denies.?Unexplained weight loss?denies.?Unexplained weight gain?denies.?HEENTM:?Dentures?denies.?Dizziness?denies.?Glasses/contacts?denies.?Retinopathy?de nies.?Blurred/double vision?denies.?TMJ?denies.?Discharge/drainage?denies.?Implants?denies.?Sore throat?denies.?Dental implants?denies.?Hard of hearing ?denies.?Difficulty chewing/swallowing/speaking?denies.?Nose bleeds?denies.?Sore mouth?denies.?Respiratory:?On Oxygen?denies.?Pneumonia/pleurisy?denies.?Bronchitis?denies.?Emphysema?denies.?C oughing?denies.?Cough blood?denies.?Shortness of breath?denies.?Wheezing?denies.?Cardiovascular:?Pacemaker?denies.?MVP?denies.?WPW?denies.?CHF?denies.?Heart attack?denies.?Septal defect?denies.?Rapid beat?denies.?Chest pain ?denies.?Atrial Fib.?admits.?Murmur/Palpitations?denies.?Gastrointestinal:?Hemorrhoids?denies.?Stomach/Abdominal pain?denies.?Dark blood stool?denies.?Irritable bowel ?denies.?Constipation?denies.?Diarrhea?denies.?Hematology:?Swelling?denies.?Clots?denies.?Varicose Veins?denies.?Bruising?denies.?Bleeding problem?denies.?Genitourinary:?Blood urine?denies.?Frequent/Painfu/urination/bladder control?denies.?Kidney stones?denies.?Infection (UTI)?denies.?Nephropathy?denies.?sex trans dis (STD)?denies.?Prostate?denies.?Musculoskeletal:?Hammertoes?denies.?Bunions?admits.?Back Pain?denies.?Muscle Cramps/ Resting?denies.?Muscle cramps / walking?denies.?Generalized aches and pains?denies.?Weakness?denies.?Integ.:?Gomez?denies.?Scars?denies.?Corns/calluses?denies.?Ingrown nails?denies.?Painful nails?admits.?Open Sores?denies.?Rashes?denies.?Neurologic:?Difficulty sleeping?denies.?Brain disorder?denies.?Numbness?denies.?Balance trouble?denies.?Confusion?denies.?Fainting/blackouts?denies.?Tingling?denies.?Tr emors?denies.? * Medical History:? * Surgical History:?sunny karimi 10/16 * Hospitalization/Major Diagno stic Procedure:?Denies Past Hospitalization * Family History:?Mother: unkn own.?Father: unknown, diagnosed with Unspecified heart disease.? * Social History:?Tobacco Use:?Tobacco use other than smoking?Are you an other tobacco user??No ?Tobacco Control (Standard)?Tobacco use:?Nonsmoker ?Additional Findings: Tobacco non-user?Current nonsmoker ???Drugs/Alcohol:?Drugs?Have you used drugs other than those for medical reasons in the past 12 months??No ???Miscellaneous:?Caffeine: yes, frequency:, 1-2 cups per day. ?Children: yes, 2. ?Exercise: yes, walking. ?Marital status: . ?Occupation: Retired. ???Drug/Alcohol:?AUDIT-C (Standard)?Did you have a drink containing alcohol in the past year??Yes ?How often did you have a drink containing alcohol in the past year??Monthly or less (1 point) ?How many drinks did you have on a typical day when you were drinking in the past year??1 or 2 drinks (0 point) ?How often did you have six or more drinks on one occasion in the past year??Never (0 point) ?Points?1 ?Interpretation?Negative * Medications:?TakingVitamin D 25 MCG (1000 UT) Tablet 1 tablet Orally Once a day Atorvastatin Calcium 40 MG Tablet 1 tablet Orally Once a day Metoprolol Succinate 25 MG Capsule ER 24 Hour Sprinkle 1 capsule Orally Once a day Eliquis 5 MG Tablet as directed Orally Medication List reviewed and reconciled with the patientTaking Vitamin D 25 MCG (1000 UT) Tablet 1 tablet Orally Once a day Taking Atorvastatin Calcium 40 MG Tablet 1 tablet Orally Once a day Taking Metoprolol Succinate 25 MG Capsule ER 24 Hour Sprinkle 1 capsule Orally Once a day Taking Eliquis 5 MG Tablet as directed Orally Medication List reviewed and reconciled with the patient * Allergies:?Penicillin: daren farrar[Allergies Verified] Objective: * Vitals:?Ht: 5ft 11.5in, Wt:1 95, BMI:26.82, Shoe size: 11, BP:120/78mm Hg, Ht-cm: 181.61 cm, Wt-k.45 kg. * Examination: ???General Examination: ?GENERAL APPEARANCE:?Reveals a pleasant, alert, well-nourished, well- developed, well hydrated individual, who demonstrates proper attention to hygiene/body habitus, and is in no acute distress, Pt serves as own?historian for office visit today.?ORIENTED:?person, place, and time.?Neurological: ?SENSORY:?Neurological exam reveals intact sensorium, pain sensation normal, vibration sensation intact, pinprick sensation is normal in the lower extremities, Pt denies, anesthesia, burning, paresthesia, tingling, B/L.?TINEL'S COMPRESSION:? Negative, Saphenous nerve distribution, Right.?DEEP TENDON REFLEXES:?Achilles, 2/4, B/L.?Vascular: ?DP PULSES (B):?3/4, B/L.?PT PULSES (B):?3/4, B/L.?CAPILLARY FILL TIME:?immediate, all digits, B/L.?TROPHIC CONDITION-TEXTURE/ELASTICITY/TURGOR/HAIR GROWTH (B):?normal, B/L.?TEMPERTURE GRADIENT (C):?warm to cool, proximal to distal, B/L.?PIGMENTATION:?normal, B/L.?EDEMA (C):?absent, B/L.?Dermatologic: ?SKIN FINDINGS:?Skin exam reveals normal texture, elasticity, and turgor. There are no masses. The interspaces are clear.?Orthopedic: ?MUSCLE STRENGTH:?5/5 all groups in a symmetrical fashion , B/L.?BUNION:? Medially prominent 1st MPJ,(-) Pain on palpation,inflammation absent medially,Lateral tracking 1st MPJ incompletely reducible, RIGHT.?FOOTWEAR:?shoe gear properties exacerbate patients foot/toe deformity.?Nails: ?NAILS are:?Elongated, overgrown, dystrophic, lytic, greater than 3mm thick, discolored and friable with crumbly malodorous subungual debris, with pain on palpation, TA.? Assessment: * Assessment: 1.?Hallux valgus (acquired), right foot - M20.11???2.?Onychomycosis - B35.1 (Primary)??? Plan: * Treatment: * Procedure Codes:? * Preventive Medicine:? ??Counseling:?Discussion:?-03: Office or other outpatient visit for the evaluation and management of a new patient, which required a medically appropriate history and/or examination and LOW level of DECISION MAKING for: 1 STABLE ACUTE UNCOMPLICATED PROBLEM, 2 OR MORE MINOR PROBLEMS, OR 1 STABLE CHRONIC PROBLEM, THAT POSE(S) A LOW RISK FOR MORBIDITY/MORTALITY. The visit on the day of the encounter encompassed interpreting the data and educating the patient as to the nature of their condition, treatment options available according to their individual PMH, meds, allergies, and overall health/living conditions, as well as any potential risks or complications that may occur from a failure to adhere to, and participate in, the recommended course of therapy. The discussion included a complete verbal, and/or written explanation of the examination results, any x-rays taken, the proposed diagnosis, and outline of the treatment plan. A schedule for future care needs was also explained. The patient verbalized an understanding of the instructions at this time and agreed to be an active participant in their treatment. If the patient should think of any questions or concerns after the visit, I have encouraged the patient to call the office.?Digital Treatment:?HV - I explained to the patient the risks/benefits of all the different treatment options for their pain including: No treatment at all, Rest, Ice, New/supportive/wider/deeper Shoe gear, Digital Padding/Strapping/Taping/Bracing/Gel protective sleeves, Foot/Ankle AFO Bracing, Stretching exercises, Deep Tissue Massage, Arch support/shoe inserts with splay metatarsal padding, and Custom orthoses. I insisted that any digital devices be removed daily and not worn overnight for safety. The patient is to carefully examine the toes daily for any skin irritation while using any splinting or padding device. The advantages and disadvantages of each option were discussed and the patients questions re: shoe gear, padding, custom vs prefabricated inserts, activity level, and consistency in home treatment regimens for optimal success were answered to their verbally confirmed satisfaction.?Fungal Nail Counseling:?The patient was counseled on the diagnosis, potential etiologies (including, but not limited to, environmental factors, genetic, immune deficiency), and the multiple treatment options for Onychomycosis. We discussed the risks and benefits of each option from performing no treatment, to ultraviolet light shoe treatment, to laser nail treatment, to applying topical antifungals, to taking oral antifungal medication, to surgical removal of the involved nail(s) with or without performing a matricectomy, or any combination thereof. We discussed the advantages and disadvantages of each of possible treatment and importance for adherence to all the recommended therapies for optimum success. This includes the necessity for weekly emery board self nail home debridements, and control the nail and skin environment as much as possible by only using a fresh, dry pair of shoes/socks each day, as well as keeping the skin as dry as possible through the use of sprays/powders if necessary. The patient was instructed to discard the emery board after use to prevent reinfection of the involved nail(s). We discussed the mycological and visual clinical effectiveness of topical vs oral antifungal treatments as well as each ones potential side effects and/or any patient- specific medication interactions. We discussed the reasons behind the important requirement of regular liver function testing with oral antifungal therapy for safety. Patient questions regarding use, dosage, successful outcomes, blood tests, and possible pharmaceutical interactions were reviewed and the patient verbalized that all answers were clearly understood, The patient presently prefers topical treatment.?Shoe Gear Counseling:?The patient and I reviewed the types of shoes they should be wearing. My recommendation included obtaining a well-fitted shoe with a good supportive, non-foldable nor twistable sole, plenty of toe/room for the forefoot, and proper arch support. Based on todays examination, I recommended the patient look for new shoes, by having their feet professionally measured. We discussed that generally the best time of the day for a shoe fitting is the afternoon. Different shoes types and brands to best match the patients occupation and vocation were discussed. Specific brand selection will be up to the patient, their individual foot condition/deformities, and fit. The patient and I reviewed the standard new shoe break in period by wearing them for a few hours a day while checking for redness or sores as wear time is increased. The patient verbally confirmed to understanding the information discussed.? ??Screening/Special Tests:?Fall Risk?Screening:?No falls in the past year ?FALLS: Screening for Future Fall Risk?Have you had any falls with injury in the past year??No * Follow Up:?prn * Images: * Sign off status: Completed true * Provider:?Lanette Mina, DPM Date:? Generated for Yael serrano/James/Eh on:?10/23/2024 01:18 PM EDT History and Physical Notes * HPI (History of Present Illness) Category Sub-Category Detail Notes Category Not es Painful Nails Course: worse Location: Great toe, Left foot Nature: aching, tender, disc olored, thick Treatments: none Foot Pain Location: Inside, Great toe joint, RIG HT Duration: several years Aggravated: any pressure Treatments: , change in shoes Examination Category Sub-Category Detail Notes Category Not es Neurological SENSORY: Neurological exa m reveals intact sensorium, pain sensation normal, vibration sensation intact, pinprick sensation is normal in the lower extremities, Pt denies, anesthesia, burning, paresthesia, tingling, B/L TINEL'S COMPRESSION: Negative, Saphenous nerve distribution, Right DEEP TENDON REFLEXES: Achilles, 2/4, B/L Dermatologic SKIN FINDINGS: Skin exam reveal s normal texture, elasticity, and turgor. There are no masses. The interspaces are clear Orthopedic BUNION: Medially promine nt 1st MPJ, (-) Pain on palpation, inflammation absent medially, Lateral tracking 1st MPJ incompletely reducible, RIGHT FOOTWEAR EVALUATION: shoe gear propertie s exacerbate patients foot/toe deformity MUSCLE STRENGTH: 5/5 all groups in a symmetrical fashion , B/L General Examination GENERAL APPEARANCE: Reveals a pleasant, alert, well- nourished, well-developed, well hydrated individual, who demonstrates proper attention to hygiene/body habitus, and is in no acute distress, Pt serves as own historian for office visit today ORIENTED: person, place, and t marcela Vascular DP PULSES (B): 3/4, B/L PT PULSES (B): 3/4, B/L CAPILLARY FILL TIME: immediate, all digi ts, B/L TEMPERTURE GRADIENT (C): warm to cool, p roximal to distal, B/L TROPHIC CONDITION-TEXTURE/ELASTICITY/TURGOR/HAIR GROWTH (B): normal, B/L EDEMA (C): absent, B/L PIGMENTATION: normal, B/L Nails NAILS are: Elongated, overg rown, dystrophic, lytic, greater than 3mm thick, discolored and friable with crumbly malodorous subungual debris, with pain on palpation, TA
--- OUTSIDE RECORDS SUMMARY | 2024-10-23 13:19 | XMS_ITS ---
Author Organization [facility] Address [address] [place] [phone] Care Team Providers Care Spot Facer Name Role Phone Diego (RETIRED) Finn CASSIDY Primary Care Provid er Unavailable Stuart Decker Jr REASON FOR VISIT screening, hx polyps Encounters Encounter Location Date Provider Diagnosis [facility] [address] [place], [place] [phone] 08/24/2023 Stuart Decker Jr Encounter for screening colonoscopy Z12.11 ; Personal history of colonic polyps Z86.010 and Colon polyps K63.5 Assessments Encounter Date Diagnosis (ICD Code) Assessment Notes Treatment Notes Treatment Clinical Notes Section Notes 08/24/2023 Encounter for screening colonoscopy (ICD-10 - Z12.11) 08/24/2023 Personal history of colonic polyps (ICD-10 - Z86.010) 08/24/2023 Colon polyps (ICD-10 - K63.5) Plan Of Treatment No Information Progress Notes * FINN BASILIO ADOB: (69 yo M)Acc No.[id number]:08/24/2023 COLON WITH MAC Patient:?FINN BASILIO Provider:?Stuart Decker MD :1955???Age:68 Y???Sex:Male Fabio e:08/24/2023 Address:[address] [place], [place] [phone] Pcp:Finn Cortez (RETIRE D), DO Subjective: * Chief Complaints: * ???1. Screening, hx polyps. * Medical History:? Objective: * Vitals:? Assessment: * Assessment: 1.?Encounter for screening c olonoscopy - Z12.11 (Primary)???2.?Personal history of colonic polyps - Z86.010???3.?Colon polyps - K63.5??? Plan: * Treatment: * Procedure Codes:?15931 LESIO N REMOVAL COLONOSCOPY, 49929 COLONOSCOPY AND BIOPSY, Modifiers: 59 , 0529F INTRVL 3+YRS PTS CLNSCP DOCD * * The named appointment provid er may or may not be the originator of this progress note, and it is not deemed complete until electronically signed by the appointment provider. Sign off status: Pending * Provider:?Stuart Decker MD Date:?0 08/24/2023 Generated for Yael serrano/James/Iraitting on:?10/23/2024 01:19 PM EDT
--- OUTSIDE RECORDS SUMMARY | 2024-10-23 13:19 | XMS_ITS ---
Author Organization [facility] Address [address] [place] [phone] Care Team Providers Care Rope Walker Name Role Phone Diego (RETIRED) Finn CASSIDY Primary Care Provid er Unavailable Stuart Decker Jr REASON FOR VISIT pathology Encounters Encounter Location Date Provider Diagnosis [facility] [address] [place] [phone] 09/01/2023 Stuart Decker Jr Plan Of Treatment No Information Progress Notes * FINN BASILIO ADOB: [birth year] (68 yo M)Acc No.[id number]:09/01/2023 Patient:?FINN BASILIO :1955???Age:68 Y???Sex:Male Address:[address] [place] [address] [place] [address] * true * Date:? Generated for Yael serrano/James/eTransmitting on:?10/23/2024 01:18 PM EDT
--- OUTSIDE RECORDS SUMMARY | 2024-10-23 13:19 | XMS_ITS | Patient Health Record ---
Author Organization [facility] Address [address] [place] [address] Care Team Providers Care Vehicle Mechanic Name Role Phone Diego (RETIRED) Finn CASSIDY Primary Care Provid er Unavailable Stuart Decker Jr Unavailable Allergies Allergen (clinical drug ingredient) Drug/Non Drug Allergy documented on EMR Reaction Allergy Type Onset Date Status Penicillin Unknown Drug Allergy Active Reason For Referral No Information Medications Medication SIG (Take, Route, Fr equency, Duration) Notes Start Date End Date Status Complex B-100 - as directed Orally Active Simvastatin 40 MG 1 tablet in the even ing Orally Once a day Active Vitamin D 1000 UNIT 1 tablet Orally Once a day Active Immunizations Vaccine Route Administration Date Status Comme nts Influenza Unknown 07/25/2023 Administered Social History Tobacco Use: Social History Observation [...] Problem Status W/U Status Risk Notes Problem 621895223 Colon cancer screening (Z12.11) Active confirmed Problem 482385073 Personal history of colonic polyps (Z86.010) Active confirmed Problem 855497559 Encounter for other preprocedural examination (Z01.818) Active confirmed Plan Of Treatment Future Test Test Name Order Date COLONOSCOPY 02/22/2018 COLONOSCOPY 08/10/2023 Insurance Providers Payer Name Payer Address Payer Phone Subscriber Number Group Number Insured Name Patient Relationship to Insured Coverage Start Date Coverage End Date [facility] [address] [place] [address] [id number] FINN BASILIO Self - patient is the insured Medical (General) History Medical History History ICD Code Hyperlipidemia Colon polyps, colonoscopy 07/11, tubular adenomas x2, three-year followup. Surgical History Surgery Date(Month/Year) hernia repair umbilical hernia repair knee surgery-right kidney stone removal
== END ==
LOC: HO.SL 11:02
PROVIDERS: PCP Internal Medicine; Visit Provider Internal Medicine
DX: G47.33 Obstructive sleep apnea (adult) (pediatric) (principal)
CPT/HCPCS: 95806

== ENCOUNTER → 2024-10-23 11:15 | Outpatient (BNV) | payer MEDICARE, SELFPAY | PROVIDERS: PCP Internal Medicine; Visit Provider Internal Medicine | DX: G47.30 Sleep apnea, unspecified (principal) | CPT/HCPCS: 95806 ==

== ENCOUNTER 2024-11-15 13:17 | Outpatient (AMB) | payer MEDICARE, SELFPAY ==
--- NOTE | 2024-11-15 13:20 | A.OFFVIS_ITS ---
Vital Signs 11/15/24 13:22 Height 5 ft 10 in Weight 203 lb 4.259 oz BMI 29.2 BP 120/60 Blood Pressure Location Lt brachial Position Sitting Pulse 69 Pulse Source Pulse Oximeter Intake Visit Reasons: 3m follow up/ holter/ sleep study Video Editing Intern Required: No Accompanied by: Self / Same As Patient Allergies Penicillins Allergy (Mild, Verified 08/24/23 12:50) RASH Medication List - Last Reconciled 11/15/24 by Jared Knapp MD apixaban 5 mg PO BID atorvastatin 40 mg PO DAILY cholecalciferol (vitamin D3) (Vitamin D3) 25 mcg PO DAILY metoprolol tartrate 25 mg PO BID tadalafil 20 mg PO DAILY PRN HPI Comments Details: Tesfaye returns for follow-up. Recently seen in consultation regarding arrhythmias. He actually came for an echocardiogram for evaluation of cardiac murmur and that showed atrial fibrillation in the accompanying rhythm strip. Following this, he underwent a 30 day monitor that showed atrial fibrillation with rapid ventricular rate. Then he was put on beta-blockers and Eliquis. Patient himself has no symptoms from this. He also has no angina or in fact any cardiac symptoms. No known coronary disease or myocardial infarction or cardiomyopathy. However, almost 5-6 family members in his family have atrial fibrillation-mainly uncles. Since last seen, no new cardiac symptoms. He states he feels okay. [facility] Medical History (Updated 08/23/24 @ 13:45 by Jared Knapp MD) Elevated cholesterol Surgical History H/O colonoscopy Hx of cystoscopy Hx of knee surgery Hx of umbilical hernia repair Family History Father Heart attack Social History Household Members: Spouse Alcohol intake: current Alcohol intake frequency: 0-2 drinks per day Patient Tobacco Use Status: Never used Tobacco Review of Systems Const Denies chills, Denies fatigue, Denies fever(s), Denies frequent falls, Denies weakness, Denies weight gain and Denies weight loss ENT Denies dizziness Card Denies chest pain, Denies leg edema, Denies lightheadedness, Denies palpitations, Denies dyspnea and Denies dyspnea on exertion Resp Denies cough, Denies dyspnea and Denies dyspnea on exertion GI Denies hematochezia Musc Denies abnormal gait, Denies muscle weakness, Denies numbness, Denies radiating pain into limb and Denies tingling Neuro Denies abnormal gait, Denies dizziness, Denies frequent falls, Denies numbness, Denies tingling and Denies weakness Endo Denies fatigue and Denies palpitations Physical Exam Vital Signs: Last Vital Signs Pulse 69 11/15/24 13:22 BP 120/60 11/15/24 13:22 BMI result Body Mass Index 29.2 Const General: comfortable and no acute distress Orientation/consciousness: patient oriented x3 HEENT Other: Unremarkable Head: Yes normal to inspection Neck Neck: Yes normal visual inspection Chest Chest palpation & inspection: normal inspection of the chest Resp Auscultation: clear to auscultation bilaterally Cardio Palpation: normal PMI Heart sounds: S1 normal heart sound present, S2 normal heart sound present, no gallops, Murmur heart sound present systolic II/ and at the right sternal border and no rubs GI Palpation (GI): Soft to palpation Back/Spine/Pelvis Other: unremarkable Skin General skin exam: no rashes or lesions noted Neuro General: patient oriented x3 Extrem General: Yes normal to inspection Psych Mental Status: mental status grossly normal Assessment & Plan Assessment & Plan (1) PAF (paroxysmal atrial fibrillation): Code(s): I48.0 - Paroxysmal atrial fibrillation Category: Medical (2) Atrial arrhythmia: Code(s): I49.8 - Other specified cardiac arrhythmias Category: Medical (3) PVCs (premature ventricular contractions): Code(s): I49.3 - Ventricular premature depolarization Category: Medical (4) Aortic valve calcification: Code(s): I35.9 - Nonrheumatic aortic valve disorder, unspecified Category: Medical Plan Cardiac studies reviewed. In the echocardiogram, rhythm possibly atrial fibrillation but cannot distinguish if it is just frequent PACs. LVEF is 50-55%. Mildly dilated left atrium. Mild aortic/mitral calcification. Small plaque in the sinotubular ridge. In the EKG, underlying rhythm is sinus at 70/Min; no significant ST-T changes and otherwise unremarkable. In the Holter monitor, frequent supraventricular/ventricular ectopy noted. M obitz type 1 second-degree heart block during sleep hours. 30 day monitor with intermittent atrial fibrillation with a burden of about 1%. Rapid rates noted. There is mention of some wide complex rhythm but could be just aberrant conduction. In the exercise stress test, he was able to do 7 METS and reached target heart rate. No angina. No EKG evidence of ischemia. Perfusion part was not done because of insurance issues. Home sleep study reported to have moderately severe obstructive sleep apnea. Mild nocturnal hypoxemia. Overall, stable paroxysmal atrial fibrillation. Continue beta-blockers and anticoagulation. No specific management for the PVCs and just continue beta-blockers. With regard to the obstructive sleep apnea, advised to see sleep Medicine as he might need CPAP. Otherwise, he will call us with any ongoing concerns. Discussion Notes In our discussion, I outlined the significance of maintaining the anticoagulation therapy with Eliquis based on the patient's stroke risk score. I addressed the patient?s concerns about potential bleeding with Eliquis, clarifying that the risk is minimal with adherence to treatment guidelines. I reviewed the patient?s DOMITILA?DS?-VASc score to calculate the stroke risk, explaining the annual risk percentages for stroke and other related issues. For obstructive sleep apnea, I confirmed that action has been taken for sleep medicine referral regarding CPAP, which is expected to lower the cardiovascular risk factors, including AFib exacerbation. Patient was informed and verbally consented to the use of an ambient scribe for clinic note documentation during this visit. Patient Instructions: - Continue taking Eliquis and metoprolol as prescribed every morning and night. - Wait for follow-up regarding CPAP therapy setup for sleep apnea. - Be mindful of any significant bleeding events; seek medical attention if they occur. - Follow up in six months unless symptoms worsen or new symptoms arise. Coding Level of Care Code Est Pt Level 4 (31793) Complex EM visit Add On G2211 Diagnoses PAF (paroxysmal atrial fibrillation) I48.0 Atrial arrhythmia I49.8 PVCs (premature ventricular contractions) I49.3 Aortic valve calcification I35.9
[2024-11-15 13:22] VITALS: BP 120/60; PULSE 69; BMI 29.2
--- OUTSIDE RECORDS SUMMARY | 2024-11-15 15:38 | XMS_ITS | Patient Health Record ---
Author Organization [facility] [place] Address [address] [place] [address] Care Team Providers Care Building Materials Sales Attendant Name Role Phone René Kiko Primary Care Provider [phone] Lanette Mina Unavailable [phone] Allergies Allergen (clinical drug ingredient) Drug/Non Drug [...] Status Risk Notes Problem Acquired hallux valgus ([id number]) Hallux valgus (acquired), right foot (M20.11) Active confirmed Vital Signs Blood pressure diastolic 78 mm Hg 10/12/2024 Height 5ft 11.5in in 10/12/2024 Blood pressure systolic 120 mm Hg 10/12/2024 Weight 195 lbs 10/12/2024 BMI 26.82 kg/m2 10/12/2024 Encounters Encounter Location Date Provider Diagnosis [facility] [place] [address] [place] [address] 10/12/2024 Lanette Perica Onychomycosis B35.1 and Hallux [...] Date [employer] Medicare Preferred [address] [place] [address] [phone] [id number] [phone] [id number] Tesfaye Carl Self - patient is the insured Medical (General) History Medical History History ICD Code Measles Mumps Chicken pox Surgical History Surgery Date(Month/Year) left shoulder sx 10/16
--- OUTSIDE RECORDS SUMMARY | 2024-11-15 15:38 | XMS_ITS ---
Author Organization [facility] Address [address] [place] [address] Care Team Providers Care Improvement Nurse Name Role Phone Kiko Merritt Primary Care Provider Lanette Mina Unavailable [phone] Allergies Allergen (clinical drug ingredient) Drug/Non Drug [...] Status Risk Notes Problem Acquired hallux valgus ([id number]) Hallux valgus (acquired), right foot (M20.11) Active confirmed Vital Signs Height 5ft 11.5in in 10/12/2024 Weight 195 lbs 10/12/2024 BMI 26.82 kg/m2 10/12/2024 Blood pressure systolic 120 mm Hg 10/13/19 25 Blood pressure diastolic 78 mm Hg 025 Encounters Encounter Location Date Provider Diagnosis [facility] [place] [address] [place] [address] 10/12/2024 Lanette Mina Onychomycosis B35.1 and Hallux valgus (acquired), right foot M20.11 Assessments Encounter Date Diagnosis (ICD Code) Assessment Notes Treatment Notes Treatment Clinical Notes Section Notes 10/12/2024 Onychomycosis (ICD-10 - B35.1) 10/12/2024 Hallux valgus (acquired), right foot (ICD-10 - M20.11) Plan Of Treatment Next Appt Details Follow Up: prn, Reason: Progress Notes * Tesfaye BASILIODOB:1955 (69 yo M)Acc No.[id number]:10/12/2024 Progress Notes Patient:?Tesfaye BASILIO Provider:?Lanette Mina DPM :1955???Age:69 Y???Sex:Male Fabio e:10/12/2024 Address:[address] [place], [place] [id number] Pcp:Kiko Merritt Subjective: * Chief Complaints: * [...] * Sign off status: Completed true * Provider:?Lanetet Mina, DPM Date:? Generated for Yael serrano/James/Eh on:?11/15/2024 03:37 PM EDT History and Physical Notes * [...]
== END 2024-11-15 13:44 | disposition home or self-care (01) ==
LOC: HO.HCS 13:18
PROVIDERS: PCP Internal Medicine; Visit Provider Internal Medicine
DX: I48.0 Paroxysmal atrial fibrillation (principal); I49.8 Other specified cardiac arrhythmias; I49.3 Ventricular premature depolarization; I35.9 Nonrheumatic aortic valve disorder, unspecified
CPT/HCPCS: 99214; G2211

== ENCOUNTER → 2024-11-15 13:17 | Outpatient (BNVA) | payer MEDICARE, SELFPAY | PROVIDERS: PCP Internal Medicine; Visit Provider Internal Medicine | DX: I48.0 Paroxysmal atrial fibrillation (principal); I49.8 Other specified cardiac arrhythmias; I49.3 Ventricular premature depolarization; I35.9 Nonrheumatic aortic valve disorder, unspecified; Z79.01 Long term (current) use of anticoagulants | CPT/HCPCS: 99212 ==

== ENCOUNTER 2025-02-12 12:39 | Outpatient (AMB) | payer MEDICARE, SELFPAY ==
[2025-02-12 12:54] VITALS: BP 118/64; PULSE 84; O2SAT 97; BMI 27.3
--- NOTE | 2025-02-12 12:54 | MHC.OFFVIS ---
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 Home sleep study reported to have moderately severe obstructive sleep apnea. Mild nocturnal hypoxemia.(AHI-21, APURVA-83%. Trial APAP 6-20cm. Once on PAP regularly overnight oximetry to ensure hypoxemia is corrected)Not on CPAP yet. Patient intrested with [facility]. Accompanied by: Self / Same As Patient Allergies Penicillins Allergy (Mild, Verified 02/12/25 13:02) RASH HPI Comments Details: 69 year old male f/u of sleep apnea HST is c/w AHI 27 and oxygen Nadirs 83% and <88% for 14min. Will send him for assessment of nocturnal hypoxemia once established on CPAP therapy. 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 He goes to bed at 9:15 and gets up at 3am and 5am for bathroom breaks and finally at 8am he wakes up. 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 He feels fatigued. Denies bruxism. Denies headaches and RLS symptoms. STM is poor, brain fog, and recall is slow. Mood is stable, diet is stable. He is very active daily. [facility] Medical History Elevated cholesterol Surgical History H/O colonoscopy Hx of cystoscopy Hx of knee surgery Hx of umbilical hernia repair Family History Father Heart attack Social History Household Members: Spouse Alcohol intake: current Alcohol intake frequency: 0-2 drinks per day Patient Tobacco Use Status: Never used Tobacco Physical Exam Vital Signs: Last Vital Signs Pulse 84 02/12/25 12:54 BP 118/64 02/12/25 12:54 Pulse Ox 97 02/12/25 12:54 Oxygen Delivery Method Room Air 02/12/25 12:54 BMI result Body Mass Index 27.3 Const General: cooperative, comfortable and no acute distress Nutritional Appearance: average body habitus Orientation/consciousness: patient oriented x3 HEENT Face and sinus: Yes face symmetric Throat: Yes other ([place] score of 3) Eyes Pupils: Equal, round and reactive pupils present Neck Neck: Yes full ROM Resp Effort & Inspection: normal respiratory effort and able to speak in complete sentences Neuro General: patient oriented x3 and moves all extremities Cranial nerves: Yes Equal, round and reactive pupils present, Yes Normal accommodation reflex present, Yes Normal facial strength present, Yes Midline tongue present, Yes Ability to bilaterally rotate head present and Yes Ability to bilaterally elevate shoulders present Cognition (Neuro): normal cognition Gait exam (Neuro): Normal gait present Motor exam (neuro): 5/5 motor strength present throughout and Normal motor muscle tone present throughout Psych Appearance: grossly normal Thought process: Normal thought process present Thought content: Normal thought content present Results Reviewed Results Reviewed: Holter Monitor Results and EKG pt. questions re: Eliquis and Metoprolol, refer to Manager Package. HST is c/w AHI 27 and oxygen Nadirs 83% and <88% for 14min. Will send him for assessment of nocturnal hypoxemia once established on CPAP therapy. Assessment & Plan Assessment & Plan (1) JESSICA (obstructive sleep apnea): Comment: send order for cpap Code(s): G47.33 - Obstructive sleep apnea (adult) (pediatric) Category: Medical (2) Fatigue: Comment: check labs Code(s): R53.83 - Other fatigue Category: Medical Qualifiers: Fatigue type: unspecified Qualified Code(s): R53.83 - Other fatigue (3) Excessive daytime sleepiness: Comment: sleep hygiene Afib/ pvcs Code(s): G47.19 - Other hypersomnia Category: Medical Plan Titration study reviewed with patient today JESSICA: HST c/w AHI 21 and snoring 23% TIB, Noctunal Hypoxemia, O2 Nadirs to 83%. Fatigue r/o deficiencies with labs. CPAP order written for [facility] Orders: Orders Complete Blood Count no Diff Today G47.19 - Other hypersomnia Hemoglobin A1c Today G47.19 - Other hypersomnia IRON PROFILE Today G47.19 - Other hypersomnia, G47.9 - Sleep disorder, unspecified, R53.83 - Other fatigue Vitamin D 25-OH Total Today G47.19 - Other hypersomnia Methylmalonic Acid Today G47.19 - Other hypersomnia, G47.9 - Sleep disorder, unspecified, R53.83 - Other fatigue Comprehensive Met. Panel Today G47.19 - Other hypersomnia Ferritin Today G47.19 - Other hypersomnia Homocysteine Today G47.19 - Other hypersomnia, G47.9 - Sleep disorder, unspecified, R53.83 - Other fatigue Magnesium Today G47.19 - Other hypersomnia Vitamin B12 and Folate Today G47.19 - Other hypersomnia TSH reflex Free T4 Today G47.19 - Other hypersomnia Patient Instructions: Sleep Hygiene provided: set a scheduled bedtime and wake time to help regulate the circadian rhythm and balance the release of pituitary hormones. Sleep in a dark room, temperatures below 68 degrees, and no devices n bed. Limit caffeinated products 6 hours prior to bed, and limit fluids 2-4 hours prior to bed. Gentle night yoga, diffusing essential oils, and playing soft music can be relaxing. Coding Level of Care Code New Pt Level 4 (49210) Diagnoses JESSICA (obstructive sleep apnea) G47.33 Fatigue, unspecified type R53.83 Fatigue type: unspecified Excessive daytime sleepiness G47.19 Time Spent (min) 30 Comment Evaluation Sleep Questionnaire Difficulty falling asleep: No Difficulty staying asleep?: No Number of arousals: 2-3 Snoring: Yes Witnessed apneas: Yes Gasping arousals: Yes Nocturia: Yes GERD: No Vivid dreams: No Acting out dreams: No Abnormal behavior in sleep: No Abnormal movements in sleep: No Morning headaches: No Excessive daytime sleepiness: No Daytime naps: No Restless legs: No Hallucinations: No Sleep paralysis: No Drop attacks: No Sleep Study: Yes CPAP: No
--- OUTSIDE RECORDS SUMMARY | 2025-02-12 13:40 | XMS_ITS | Data Portability ---
Author Organization [facility], [place] Address [address] [place] [address] Care Team Providers Care Shorts Sifter Name Role Phone ADRIENNE CHARLES Primary Care Provider Assessment Encounter Date Assessment Date Assessment LastModified by Organization Details LastModified Time 10/22/2024 10/22/2024 Assessment: Pt able to do all exercise with minimal issue. Pt noted some fatigue and end range stretching but no significant discomfort. Plan: Cont POC. [email or web address] Not available 10/22/2024 14:41:49 10/23/2024 10/23/2024 Assessment: Slow and steady improvement in P/AA/A ROM though end range tightness. Plan: Cont POC. [email or web address] Not available 10/23/2024 16:07:36 10/26/2024 10/26/2024 Assessment: Pt able to do all exercise with minimal issue. Pt noted some fatigue but no increase in pain. Pt needed occasional verbal cues to correct form. Plan: Cont POC. [email or web address] Not available 10/28/2024 15:49:42 10/30/2024 10/30/2024 Assessment: Pt able to do all exercise with minimal issue. Pt noted some fatigue with therex but no increase in symptoms. Plan: Cont POC. [email or web address] Not available 10/30/2024 15:29:29 10/31/2024 10/31/2024 Procedure/Date:l ef t shoulder decompression 09/11/24 History: Doing well, no complications Exam: Wound benign, motion 90% of full Radiographs: none Clinical Status: Doing well postoperatively Work Status/Plan:allowe dfull duty work Physical Therapy Status: Continue per protocol Medication Prescriptions: [none given] Plan/Follow up:p.r.n. [facility] speech recognition commodity broker software was used to create portions of this document. An attempt at proofreading has been made to minimize errors. Please call for corrections. [email or web address] Not available 10/31/2024 10:57:22 Plan of Treatment Reminders Order Date Submit [...] Name and Address Organization Details Recorded Time 5 88701 Therapeutic Exercise (1:1) completed Karuna Mcallister, TRAFFIC WORKFORCE REPRESENTATIVE [address] [facility], [place], [address], [facility] 09/26/2024 15:26:57 5 62734 Therapeutic Exercise (1:1) completed KATIE TABOR DPT [address] [facility], [place], [address], [facility] 09/25/2024 11:20:31 5 85619: Hot or Cold Pack completed KATIE TABOR DPT [address] [facility], [place], [address], [facility] 09/25/2024 11:20:31 5 53324: Manual therapy completed KATIE TABOR DPT [address], [place], [address], [facility] 09/25/2024 11:20:31 5 59541 Therapeutic Exercise (1:1) completed KATIE TABOR, DPT [address], [place], [address], [facility] 09/21/2024 11:47:59 5 80255: Hot or Cold Pack completed KATIE TABOR DPT [address], [place], [address], [facility] 09/21/2024 11:47:59 5 80120: Manual therapy completed LAURA VARGAST [address], [place], [address], [facility] 09/21/2024 11:47:59 5 61991 Therapeutic Exercise (1:1) completed Karuna Mcallister TRAFFIC WORKFORCE REPRESENTATIVE [address], [place], [address], [facility] 09/20/2024 16:22:29 5 48544: Hot or Cold Pack completed Karuna Mcallister PTA [address], [place], [address], [facility] 09/20/2024 17:45:57 5 39458: Manual therapy completed Karuna Mcallister PTA [address], [place], [address], [facility] 09/20/2024 16:22:29 5 95870 Therapeutic Exercise (1:1) completed Karuna Mcallister PTA [address], [place], [address], [facility] 09/19/2024 12:52:45 5 31448: Hot or Cold Pack completed Karuna Mcallister PTA [address], [place], [address], [facility] 09/19/2024 12:52:45 5 09128: Manual therapy completed Karuna Mcallister TRAFFIC WORKFORCE REPRESENTATIVE [address], [place], [address], [facility] 09/19/2024 12:52:45 5 99700 Therapeutic Exercise (1:1) completed Karuna Mcallister TRAFFIC WORKFORCE REPRESENTATIVE [address], [place], [address], [facility] 09/18/2024 12:54:10 5 97933: Hot or Cold Pack completed Karuna Mcallister TRAFFIC WORKFORCE REPRESENTATIVE [address], [place], [address], [facility] 09/18/2024 12:54:10 5 01865: Manual therapy completed Karuna Mcallister TRAFFIC WORKFORCE REPRESENTATIVE [address], [place], [address], [facility] 09/18/2024 12:54:10 5 99044 Therapeutic Exercise (1:1) completed Karuna Mcallister TRAFFIC WORKFORCE REPRESENTATIVE [address], [place], [address], [facility] 09/17/2024 09:25:49 5 79478: Hot or Cold Pack completed Karuna Mcallister TRAFFIC WORKFORCE REPRESENTATIVE [address], [place], [address], [facility] 09/17/2024 10:22:15 5 52667: Manual therapy completed Karuna Mcallister TRAFFIC WORKFORCE REPRESENTATIVE [address], [place], [address], [facility] 09/17/2024 09:25:49 5 74299 Therapeutic Exercise (1:1) completed KATIE TABOR, DPT [address], [place], [address], [facility] 09/14/2024 08:45:30 5 45092: Manual therapy completed KATIE TABOR, DPT [address], [place], [address], [facility] 09/14/2024 08:45:32 5 05169 Therapeutic Exercise (1:1) completed Karuna Mcallister, TRAFFIC WORKFORCE REPRESENTATIVE [address], [place], [address], [facility] 09/13/2024 10:29:32 5 43940: Hot or Cold Pack completed Karuna Mcallister, TRAFFIC WORKFORCE REPRESENTATIVE [address], [place], [address], [facility] 09/17/2024 08:05:36 5 62307: Manual therapy completed Karuna Mcallister, TRAFFIC WORKFORCE REPRESENTATIVE [address], [place], [address], [facility] 09/17/2024 08:05:26 5 10775 Therapeutic Exercise (1:1) completed KATIE TABOR DPT [address], [place], [address], [facility] 09/13/2024 10:26:02 5 22798: Low complexity PT Eval completed KATIE TABOR DPT [address], [place], [address], [facility] 09/13/2024 10:26:04 4 Sports Shoulder 4&1 completed Fabián Blackburn MD [address], [place], [address], [facility] 04/12/2024 11:54:28 Imaging Results None recorded. Procedure Notes None recorded. Medical Equipment None Reported. Allergies Allergen ID Allergen Name Allergen Category Reaction Reaction Severity Criticality Documentation Date Start Date Code Code System Note Provider Name and Address Organization Details Recorded Time 914702 Product containin g penicilli n (product) medicatio n Not available Not available Not available 01/10/2024 82524 8001 SNOMED KARINA ROCA [facility] 4 16:29:24 Medications Name Sig [...] Not Available Not Available No t Available meloxicam 15 mg tablet TAKE 1 [...] completed Not Available Not Available Not Available oxycodone 5 mg tablet Take 1 tablet 3 times a day by oral route as needed for 7 days, for postopera tive pain. active Not Available Not Available No t Available cholecalcif gene (vitamin D3) 25 mcg (1,000 unit) capsule TAKE 1 CAPSULE BY MOUTH EVERY DAY FOR 90 DAYS active Not Available Not Available No t Available Vitamin D3 25 mcg (1,000 unit) tablet TAKE 1 TABLET BY MOUTH EVERY DAY active Not Available Not Available No t Available tadalafil 20 mg tablet PLEASE SEE ATTACHED FOR DETAILED DIRECTION S [...] and Address Organization Details Last Updated DateTime 10/31/2024 180.34 cm 27.9 kg/m2 05175.47 g CHRISTIANO COLLINS [place] [facility] 10/31/2024 10:35:08 Social History None recorded. Functional Status None recorded. Mental Status None recorded. Family History Nothing Reported. Medical History Condition Response Coronary Artery Disease N Emphysema N COPD N Heart Trouble Y Gastrointestinal Disease N Autoimmune disease N Arthritis N Blood Clot N Acid Reflux (GERD) N Cancer N Stroke N Circulation Problems N Rheumatoid Arthritis N Arrhythmia N Headaches N Fibromyalgia N Breathing or lung disorders N Nerve Disorders N Kidney/Bladder Problems N Bleeding Disorder N AIDS/HIV N Asthma N Peripheral Vascular Disease N Hepatitis N Pulmonary Embolism N Anxiety/Depression N Pacemaker N Vascular Disease N Inflammatory Joint disease N Orthotics N Allergies/Hayfever N Thyroid Problems N Anemia N Heart Attack ([place]) N Cholesterol Y Diabetes N Seizures/Epilepsy N Congestive Heart Failure (CHF) N Sleep Apnea N Heart Disease N Hypertension N Osteoporosis N Past Encounters Encounter ID Performer Location Encounter Start Date Encounter Closed Date Diagnosis/Indication Diagnosis SNOMED-CT Code Diagnosis ICD10 Code Diagnosis Note [id number] [facility] [address] [place] [address] 01/10/2024 08:22:25 02/15/2024 08:28:56 Pain of left knee joint [id number] 52755 M25.568 [id number] [facility] [address] [place] [address] 01/18/2024 10:37:22 02/22/2024 11:05:01 [id number] MD Yanel[facility] T[facility] [address] [place] [address] 04/12/2024 10:49:59 05/03/2024 11:45:57 Pain of left shoulder joint 4395006011 0990808 M25.910 [id number] [facility] [address] [place] [address] 05/23/2024 08:30:53 06/14/2024 14:12:04 Calcific tendinitis of left shoulder 4681555821 08888 M75.32 [id number] [facility] [address] [place] [address] 08/09/2024 13:50:00 08/21/2024 10:44:27 Calcific tendinitis of left shoulder 7178776262 63410 M75.32 [id number] MD [facility] [address] [place] [address] 08/27/2024 13:13:41 09/04/2024 12:30:44 Pain of left shoulder joint 1882151358 0621817 M25.241 [id number] [facility] [address] [place] [address] 09/12/2024 08:51:29 09/12/2024 09:46:38 Impingement syndrome of left shoulder region 1457630173 63570 M75.42 [id number] Karuna Mcallister TRAFFIC WORKFORCE REPRESENTATIVE [facility] [address] [place] [address] 09/13/2024 12:33:33 09/13/2024 15:14:03 Impingement syndrome of left shoulder region [id number] 44156 M75.42 [id number] KATIE TABOR, DPT [facility] [address] [place] [address] 09/14/2024 08:24:40 09/14/2024 09:21:48 Impingement syndrome of left shoulder region [id number] 11718 M75.42 [id number] Karuna Mcallister TRAFFIC WORKFORCE REPRESENTATIVE [facility] [address] [place] [address] 09/17/2024 09:23:01 09/17/2024 10:29:01 Impingement syndrome of left shoulder region 0311769251 97378 M75.42 [id number] [facility] [address] [place] [address] 09/18/2024 11:04:43 10/01/2024 15:20:39 Adhesive capsulitis of left shoulder [id number] 74440 M75.02 [id number] Karuna Mcallister PTA [facility] [address] [place] [address] 09/18/2024 12:44:51 09/18/2024 14:39:16 Impingement syndrome of left shoulder region [id number] 46863 M75.42 [id number] Karuna Mcallister PTA [facility] [address] [place] [address] 09/19/2024 12:46:21 09/19/2024 13:27:44 Impingement syndrome of left shoulder region [id number] 56364 M75.42 [id number] Karuna Mcallister TRAFFIC WORKFORCE REPRESENTATIVE [facility] [address] [place] [address] 09/20/2024 16:17:38 09/20/2024 17:22:19 Impingement syndrome of left shoulder region [id number] 73494 M75.42 [id number] KATIE TABOR, DPT [facility] [address] [place] [address] 09/21/2024 10:21:43 09/21/2024 11:15:34 Impingement syndrome of left shoulder region 4953312157 14154 M75.42 [id number] KATIE TABOR, DPT [facility] [address] [place] [address] 09/25/2024 11:15:47 09/25/2024 11:58:01 Impingement syndrome of left shoulder region [id number] 24382 M75.42 [id number] Karuna Mcallister, TRAFFIC WORKFORCE REPRESENTATIVE [facility] [address] [place], [place] [address] 09/26/2024 15:15:41 09/26/2024 15:56:10 Impingement syndrome of left shoulder region 0266219752 52034 M75.42 [id number] Karuna Mcallister TRAFFIC WORKFORCE REPRESENTATIVE [facility] [address] [place] [address] 09/27/2024 14:49:44 09/27/2024 16:17:57 Impingement syndrome of left shoulder region [id number] 73375 M75.42 [id number] Karuna Mcallister, TRAFFIC WORKFORCE REPRESENTATIVE [facility] [address] [place] [address] 09/28/2024 10:14:01 09/28/2024 11:18:22 Impingement syndrome of left shoulder region [id number] 30097 M75.42 [id number] Karuna Mcallister, TRAFFIC WORKFORCE REPRESENTATIVE [facility] [address] [place] [address] 10/01/2024 14:21:33 10/01/2024 15:28:19 Impingement syndrome of left shoulder region 9297197830 37432 M75.42 [id number] Karuna Mcallister, TRAFFIC WORKFORCE REPRESENTATIVE [facility] [address] [place] [address] 10/02/2024 11:15:27 10/02/2024 12:27:43 Impingement syndrome of left shoulder region 9121595701 12149 M75.42 [id number] Karuna Mcallister, TRAFFIC WORKFORCE REPRESENTATIVE [facility] [address] [place] [address] 10/03/2024 11:50:42 10/03/2024 12:36:56 Impingement syndrome of left shoulder region [id number] 41345 M75.42 [id number] Karuna Mcallister, TRAFFIC WORKFORCE REPRESENTATIVE [facility] [address] [place] [address] 10/05/2024 10:53:53 10/05/2024 13:49:18 Impingement syndrome of left shoulder region [id number] 24829 M75.42 [id number] Karuna Mcallister, TRAFFIC WORKFORCE REPRESENTATIVE [facility] [address] [place] [address] 10/09/2024 10:49:24 10/09/2024 13:01:25 Impingement syndrome of left shoulder region [id number] 90960 M75.42 [id number] Karuna Mcallister, TRAFFIC WORKFORCE REPRESENTATIVE [facility] [address] [place] [address] 10/10/2024 14:16:58 10/10/2024 15:13:04 Impingement syndrome of left shoulder region [id number] 28233 M75.42 [id number] Karuna Mcallister, TRAFFIC WORKFORCE REPRESENTATIVE [facility] [address] [place] [address] 10/11/2024 12:51:07 10/11/2024 15:30:50 Impingement syndrome of left shoulder region [id number] M75.42 [id number] Karuna Mcallister, TRAFFIC WORKFORCE REPRESENTATIVE [facility] [address] [place] [address] 10/12/2024 10:23:30 10/12/2024 11:15:52 Impingement syndrome of left shoulder region [id number] 83890 M75.42 [id number] KATIE TABOR, DPT [facility] [address] [place] [address] 10/15/2024 14:23:27 10/15/2024 15:22:19 Impingement syndrome of left shoulder region [id number] 01490 M75.42 [id number] Karuna Mcallister, TRAFFIC WORKFORCE REPRESENTATIVE [facility] [address] [place] [address] 10/16/2024 10:25:42 10/16/2024 11:50:54 Impingement syndrome of left shoulder region [id number] 08139 M75.42 [id number] KATIE TABOR, DPT [facility] [address] [place] [address] 10/17/2024 12:24:55 10/17/2024 14:25:56 Impingement syndrome of left shoulder region [id number] 35401 M75.42 [id number] KATIE TABOR, DPT [facility] [address] [place] [address] 10/18/2024 12:22:12 10/18/2024 13:05:56 Impingement syndrome of left shoulder region [id number] 37246 M75.42 [id number] KATIE TABOR, DPT [facility] [address] [place] [address] 10/19/2024 09:20:09 10/19/2024 10:07:16 Impingement syndrome of left shoulder region [id number] 32759 M75.42 [id number] LAURA VARGAST [facility] [address] [place] [address] 10/22/2024 10:50:56 10/22/2024 11:50:14 Impingement syndrome of left shoulder region [id number] 99488 M75.42 [id number] Karuna Mcallister PTA [facility] [address] [place] [address] 10/23/2024 12:23:02 10/23/2024 13:36:03 Impingement syndrome of left shoulder region [id number] 96787 M75.42 [id number] KATIE TABOR DPT [facility] [address] [place] [address] 10/26/2024 10:30:02 10/26/2024 12:40:35 Impingement syndrome of left shoulder region [id number] 48057 M75.42 [id number] KATIE TABOR DPMonae [facility] [address] [place] [address] 10/30/2024 10:19:39 10/30/2024 11:16:51 Impingement syndrome of left shoulder region [id number] 96899 M75.42 [id number] MD [facility] 2nd floor [address] [place] [address] 10/31/2024 10:19:19 11/08/2024 16:05:04 Osteoarthritis of joint of left shoulder region [id number] 41481 M19.012 Health Concerns Section Related Observation LastModified by Organization Detai ls LastModified Time None Recorded Concern Status LastModified by Organization Details LastModified Time None Recorded Advance Directives Directive None Recorded Payers Insurance Date Sequence Insurance Name Policy Number Policy Ernandez Covered Member ID Ernandez Member ID Guarantor Name 11/08/2024 1 [facility]: MEDICARE PPO BLUE (MEDICARE REPLACEMENT PPO) [id number] Tesfaye Carl [id number] Tesfaye Carl Notes Date Note Type Note Provider Name and Address Organization Details Recorded Time 10/22/2024 text/html Pt reports that he is doing well today. Pt notes that he continues to feel that his shoulder is slowly improving. LAURA VARGAST [address] [facility], [place], [address], [facility] 10/22/2024 14:42:57 10/23/2024 text/html Pt states he fee ls his shoulder is slowly getting better with more ROM and able to do more. Karuna Mcallister, TRAFFIC WORKFORCE REPRESENTATIVE [address], [place], [address], [facility] 10/23/2024 16:08:13 10/26/2024 text/html Pt reports that he is doing well today. Pt notes that he feels that his shoulder continues to loosen up and get better ROM. Pt says that he is doing his exercises consistently at home. KATIE TABOR DPT [address], [place], [address], [facility] 10/28/2024 15:50:06 10/30/2024 text/html Pt reports that he is doing well today. Pt notes that the shoulder continues to feel looser and easier to use. KATIE TABOR DPT [address], [place], [address], [facility] 10/30/2024 15:29:43
== END 2025-02-12 14:03 | disposition home or self-care (01) ==
LOC: HO.HSMS 12:40
PROVIDERS: PCP Internal Medicine; Visit Provider Physician Assistant Medical
DX: G47.33 Obstructive sleep apnea (adult) (pediatric) (principal); R53.83 Other fatigue; G47.19 Other hypersomnia
CPT/HCPCS: 99204

== ENCOUNTER → 2025-02-12 12:39 | Outpatient (BNVA) | payer MEDICARE, SELFPAY | PROVIDERS: PCP Internal Medicine; Visit Provider Physician Assistant Medical | DX: G47.33 Obstructive sleep apnea (adult) (pediatric) (principal); R53.83 Other fatigue; G47.19 Other hypersomnia | CPT/HCPCS: 99202 ==

== ENCOUNTER 2025-05-16 10:46 | Outpatient (AMB) | payer MEDICARE, SELFPAY ==
[2025-05-16 10:52] VITALS: BP 124/60; PULSE 80; O2SAT 96; BMI 29.5
--- NOTE | 2025-05-16 10:52 | A.OFFVIS_ITS ---
Vital Signs 05/16/25 10:52 Height 5 ft 10 in Weight 205 lb 6 oz BMI 29.5 BP 124/60 Blood Pressure Location Rt brachial Position Sitting Pulse 80 Pulse Source Pulse Oximeter Pulse Oximetry (%) 96 Oxygen Delivery Method Room Air Intake Visit Reasons: 3mnth follow up Intake Note: Patient presents follow up JESSICA. Compliance in chart(72days, >=4hrs-8%, Average usage-36min, Med Pressure-6.9, Med Leaks- 8.1, AHI-1.6). Accompanied by: Self / Same As Patient Allergies Penicillins Allergy (Mild, Verified 05/16/25 10:58) RASH HPI Comments Details: 70 year old male with h/o of AFIB and severe JESSICA is here for a f/u of sleep difficulties. JESSICA compliance report January 2025- Apr 2025 Total use is 72 days and >4 hours is 8% Avg use is 36 min Med Press 6.9 and Leaks 8.1cmH20 AHI is 1.6/hr. He washes the mask, rinses hoses, changes filters, fills reservoir with water. HST is c/w AHI 27 and oxygen Nadirs 83%, and <88% for 14min. Will send him for assessment of nocturnal hypoxemia once established on CPAP therapy. He has a difficult time using the cpap machine and notices the mask is rigid on the forehead and bridge of nose. He is trying to be more compliant.He goes to sleep at 9:30pm with multiple arousals at night. 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 He is retired however sometimes works in [employer] remotely 2x a week, and chronically is fatigued. He denies bruxism. He denies headaches, GERD and RLS symptoms. His STM is poor, he has brain fog, is slow to recall information, he says he is not as sharp as he once used to be. He drives in the neighborhood where he has lived for years and gets lost when unable to use his navigation. He says the childhood memories are not clear and birthdays along with dates are often overl ooked or missed. He admits to be stressed lately. His mood is stable, diet is stable. He does not smoke or drink alcohol. [facility] Medical History Elevated cholesterol Surgical History H/O colonoscopy Hx of cystoscopy Hx of knee surgery Hx of umbilical hernia repair Family History Father Heart attack Social History Household Members: Spouse Alcohol intake: current Alcohol intake frequency: 0-2 drinks per day Patient Tobacco Use Status: Never used Tobacco Physical Exam Vital Signs: Last Vital Signs Pulse 80 05/16/25 10:52 BP 124/60 05/16/25 10:52 Pulse Ox 96 05/16/25 10:52 Oxygen Delivery Method Room Air 05/16/25 10:52 BMI result Body Mass Index 29.5 Const General: cooperative, comfortable and no acute distress Nutritional Appearance: average body habitus Orientation/consciousness: patient oriented x3 HEENT Face and sinus: Yes face symmetric Throat: Yes other ([place] score of 3) Eyes Pupils: Equal, round and reactive pupils present Neck Neck: Yes full ROM Resp Effort & Inspection: normal respiratory effort and able to speak in complete sentences Neuro General: patient oriented x3 and moves all extremities Cranial nerves: Yes Equal, round and reactive pupils present, Yes Normal accommodation reflex present, Yes Normal facial strength present, Yes Midline tongue present, Yes Ability to bilaterally rotate head present and Yes Ability to bilaterally elevate shoulders present Cognition (Neuro): normal cognition Gait exam (Neuro): Normal gait present Motor exam (neuro): 5/5 motor strength present throughout and Normal motor muscle tone present throughout Psych Appearance: grossly normal Mental Status: mental status grossly normal Affect: normal affect Thought process: Normal thought process present Thought content: Normal thought content present Results Reviewed Results Reviewed: * Total monitoring time 3 days. * Underlying rhythm is sinus with an average rate of 78/Min. * Rare supraventricular ectopy with a burden of 0.5%. * Rare ventricular ectopy with a burden of 0.02%. * No sustained arrhythmias. * Transient 2:1 block during sleep hours. * No patient markers or diary events. Assessment & Plan Assessment & Plan (1) Excessive daytime sleepiness: Comment: sleep hygiene Afib/ pvcs Code(s): G47.19 - Other hypersomnia Category: Medical (2) JESSICA (obstructive sleep apnea): Code(s): G47.33 - Obstructive sleep apnea (adult) (pediatric) Category: Medical (3) Fatigue: Comment: check labs Code(s): R53.83 - Other fatigue Category: Medical Qualifiers: Fatigue type: unspecified Qualified Code(s): R53.83 - Other fatigue (4) Memory change: Code(s): R41.3 - Other amnesia Category: Medical Plan Compliance requirements are reviewed today with pt. and he is having trouble being compliant due to his mask. Will send him for mask fitting.We discussed alternative options to Cpap use, inspire and other cpap devices, however the gold standard is positive air way pressure, due to severe JESSICA. Pt Education is provided today. Re compliance of more than 4 hours daily to improve cognitive deficits. Severe JESSICA on cpap therapy HST reviwed with pt today, and he understands the severity and complications of jessica with regards to Cardiovascular comorbidiites. Titration study reviewed with patient today JESSICA severe, HST c/w AHI 21 and snoring 23% TIB, Noctunal Hypoxemia, O2 Nadirs to 83%. Chronic Fatigue r/o deficiencies with labs, [facility]. Memory changes will send him for an MRI to evaluate for Dementia/ AD - MMSE is normal Will conduct APO E4 testing lab/ if not improved once started on consistent cpap therapy. Orders: Orders MR head/brain wo/w con Today G47.33 - Obstructive sleep apnea (adult) (pediatric), R41.3 - Other amnesia Patient Instructions: Sleep Hygiene provided: set a scheduled bedtime and wake time to help regulate the circadian rhythm and balance the release of pituitary hormones. Sleep in a dark room, temperatures below 68 degrees, and no devices n bed. Limit caffeinated products 6 hours prior to bed, and limit fluids 2-4 hours prior to bed. Gentle night yoga, diffusing essential oils, and playing soft music can be relaxing. Coding Level of Care Code Est Pt Level 4 (66775) Diagnoses Excessive daytime sleepiness G47.19 JESSICA (obstructive sleep apnea) G47.33 Fatigue, unspecified type R53.83 Fatigue type: unspecified Memory change R41.3
== END 2025-05-16 12:02 | disposition home or self-care (01) ==
LOC: HO.HSMS 10:46
PROVIDERS: PCP Internal Medicine; Visit Provider Physician Assistant Medical
DX: G47.19 Other hypersomnia (principal); G47.33 Obstructive sleep apnea (adult) (pediatric); R53.83 Other fatigue; R41.3 Other amnesia
CPT/HCPCS: 99214

== ENCOUNTER → 2025-05-16 10:46 | Outpatient (BNVA) | payer MEDICARE, SELFPAY | PROVIDERS: PCP Internal Medicine; Visit Provider Physician Assistant Medical | DX: G47.33 Obstructive sleep apnea (adult) (pediatric) (principal); R41.3 Other amnesia; R53.83 Other fatigue; G47.19 Other hypersomnia; Z99.89 Dependence on other enabling machines and devices | CPT/HCPCS: 99212 ==

== ENCOUNTER 2025-05-22 12:59 | Outpatient (AMB) | payer MEDICARE, SELFPAY ==
[2025-05-22 13:04] VITALS: BP 124/62; PULSE 68; BMI 29.4
--- NOTE | 2025-05-22 13:04 | A.OFFVIS_ITS ---
Vital Signs 05/22/25 13:04 Height 5 ft 10 in Weight 205 lb BMI 29.4 BP 124/62 Blood Pressure Location Lt brachial Position Sitting Pulse 68 Pulse Source Monitor Intake Visit Reasons: 6m follow up Allergies Penicillins Allergy (Mild, Verified 05/16/25 10:58) RASH Medication List - Last Reconciled 05/22/25 by Jared Knapp MD apixaban (Eliquis) 5 mg PO BID atorvastatin 40 mg PO DAILY cholecalciferol (vitamin D3) (Vitamin D3) 25 mcg PO DAILY metoprolol tartrate 25 mg PO BID tadalafil 20 mg PO DAILY PRN HPI Comments Details: Tesfaye returns for follow-up. Recently seen in consultation regarding ar rhythmias. He actually came for an echocardiogram for evaluation of cardiac murmur and that showed atrial fibrillation in the accompanying rhythm strip. Following this, he underwent a 30 day monitor that showed atrial fibrillation with rapid ventricular rate. Then he was put on beta-blockers and Eliquis. Patient himself has no symptoms from this. He also has no angina or in fact any cardiac symptoms. No known coronary disease or myocardial infarction or cardiomyopathy. However, almost 5-6 family members in his family have atrial fibrillation-mainly uncles. No new issues since last seen. [facility] Medical History Elevated cholesterol Surgical History H/O colonoscopy Hx of cystoscopy Hx of knee surgery Hx of umbilical hernia repair Family History Father Heart attack Social History Household Members: Spouse Alcohol intake: current Alcohol intake frequency: 0-2 drinks per day Patient Tobacco Use Status: Never used Tobacco Review of Systems Const Denies weakness ENT Denies dizziness Card Denies chest pain, Denies chest pain with activity, Denies syncope, Denies rapid heart rate, Denies pedal edema, Denies edema, Denies leg edema, Denies li ghtheadedness, Denies palpitations, Denies dyspnea, Denies dyspnea on exertion and Denies orthopnea Resp Denies cough, Denies dyspnea and Denies dyspnea on exertion GI Denies hematochezia and Denies change in stool character Musc Denies abnormal gait, Denies muscle cramps, Denies muscle weakness, Denies numbness, Denies radiating pain into limb and Denies tingling Neuro Denies abnormal gait, Denies dizziness, Denies syncope, Denies numbness, Denies tingling and Denies weakness Endo Denies palpitations Physical Exam Vital Signs: Last Vital Signs Pulse 68 05/22/25 13:04 BP 124/62 05/22/25 13:04 BMI result Body Mass Index 29.4 Const General: comfortable and no acute distress Orientation/consciousness: patient oriented x3 HEENT Other: Unremarkable Head: Yes normal to inspection Neck Neck: Yes normal visual inspection Chest Chest palpation & inspection: normal inspection of the chest Resp Auscultation: clear to auscultation bilaterally Cardio Palpation: normal PMI Heart sounds: S1 normal heart sound present, S2 normal heart sound present, no gallops, no murmurs and no rubs GI Palpation (GI): Soft to palpation Back/Spine/Pelvis Other: unremarkable Skin General skin exam: no rashes or lesions noted Neuro General: patient oriented x3 Extrem General: Yes normal to inspection Psych Mental Status: mental status grossly normal Office Procedures EKG Details: EKG with underlying sinus rhythm at 68/Min; no ischemic changes; slightly prolonged AR at 210 milliseconds; [place]. [id number], Complete Assessment & Plan Assessment & Plan (1) PAF (paroxysmal atrial fibrillation): Code(s): I48.0 - Paroxysmal atrial fibrillation Category: Medical (2) Atrial arrhythmia: Code(s): I49.8 - Other specified cardiac arrhythmias Category: Medical (3) PVCs (premature ventricular contractions): Code(s): I49.3 - Ventricular premature depolarization Category: Medical (4) Aortic valve calcification: Code(s): I35.9 - Nonrheumatic aortic valve disorder, unspecified Category: Medical Plan Cardiac studies reviewed. In the echocardiogram, rhythm possibly atrial fibrillation but cannot distinguish if it is just frequent PACs. LVEF is 50-55%. Mildly dilated left atrium. Mild aortic/mitral calcification. Small plaque in the sinotubular ridge. In the Holter monitor, frequent supraventricular/ventricular ectopy noted. Mobitz type 1 second-degree heart block during sleep hours. 30 day monitor with intermittent atrial fibrillation with a burden of about 1%. Rapid rates noted. There is mention of some wide complex rhythm but could be just aberrant conduction. In the exercise stress test, he was able to do 7 METS and reached target heart rate. No angina. No EKG evidence of ischemia. Perfusion part was not done because of insurance issues. Home sleep study reported to have moderately severe obstructive sleep apnea. Mild nocturnal hypoxemia. Overall, stable paroxysmal atrial fibrillation. Continue beta-blockers and anticoagulation. No specific management for the PVCs and just continue beta-blockers. With regard to the obstructive sleep apnea, continue CPAP. Discussion Notes During the visit, we discussed the importance of continuing CPAP therapy for managing atrial fibrillation and obstructive sleep apnea. The patient was informed about the need to continue CPAP use to optimize benefits. We also reviewed the current medication regimen, including metoprolol and Eliquis, emphasizing adherence to these medications. A follow-up appointment is scheduled for one year to reassess the patient's condition and treatment plan. Patient was informed and verbally consented to the use of an ambient scribe for clinic note documentation during this visit. Patient Instructions: - Continue using the CPAP machine every night. - Take metoprolol as prescribed. - Continue taking Eliquis as part of your anticoagulation therapy. - Return for a follow-up appointment in one year. Coding Level of Care Code Est Pt Level 4 (20490) Complex EM visit Add On G2211 Diagnoses PAF (paroxysmal atrial fibrillation) I48.0 Atrial arrhythmia I49.8 PVCs (premature ventricular contractions) I49.3 Aortic valve calcification I35.9 CPT Codes EKG - CPT: 89078-[id number], Complete ([id number])
--- OUTSIDE RECORDS SUMMARY | 2025-05-22 16:30 | XMS_ITS | Data Portability ---
Author Organization [facility], [facility] [place] Address [address] [place] [address] Care Team Providers Care Brick Shader Name Role Phone ADRIENNE CHARLES Primary Care Provider Assessment Encounter Date Assessment Date Assessment LastModified by Organization Details LastModified Time 10/22/2024 10/22/2024 Assessment: Pt able to do all exercise with minimal issue. Pt noted some fatigue and end range stretching but no significant discomfort. Plan: Cont POC. [email or web address] Not available 10/22/2024 14:41:49 10/23/2024 10/23/2024 Assessment: Slow and steady improvement in P/AA/A ROM though end range tightness. Plan: Cont POC. [email or web address] Not available 10/23/2024 16:07:36 10/26/2024 10/26/2024 Assessment: Pt able to do all exercise with minimal issue. Pt noted some fatigue but no increase in pain. Pt needed occasional verbal cues to correct form. Plan: Cont POC. [email or web address] Not available 10/28/2024 15:49:42 10/30/2024 10/30/2024 Assessment: Pt able to do all exercise with minimal issue. Pt noted some fatigue with therex but no increase in symptoms. Plan: Cont POC. [email or web address] Not available 10/30/2024 15:29:29 10/31/2024 10/31/2024 Procedure/Date:l ef t shoulder decompression 09/11/24 History: Doing well, no complications Exam: Wound benign, motion 90% of full Radiographs: none Clinical Status: Doing well postoperatively Work Status/Plan:allowe dfull duty work Physical Therapy Status: Continue per protocol Medication Prescriptions: [none given] Plan/Follow up:p.r.n. [facility] speech recognition paper products printer software was used to create portions of [...] and Address Organization Details Recorded Time 5 14196 Therapeutic Exercise (1:1) completed KATIE LEANDER, DPT [address] [facility], [place], [address], [facility] 10/30/2024 15:28:42 5 99422: Hot or Cold Pack completed KATIE LEANDER, DPT [address] [facility], [place], [address], [facility] 10/30/2024 15:28:42 5 48768: Manual therapy completed KATIE LEANDER, DPT [address], [place], [address], [facility] 10/30/2024 15:28:42 5 40609 Therapeutic Exercise (1:1) completed KATIE LEANDER, DPT [address], [place], [address], [facility] 10/28/2024 15:44:53 5 46252: Hot or Cold Pack completed KATIE LEANDER, DPT [address], [place], [address], [facility] 10/28/2024 15:44:53 5 65482: Manual therapy completed KATIE LEANDER, DPT [address], [place], [address], [facility] 10/28/2024 15:44:53 5 31158 Therapeutic Exercise (1:1) completed Karuna Mcallister, FINAL CANOE INSPECTOR [address], [place], [address], [facility] 10/23/2024 12:29:03 5 75869: Hot or Cold Pack completed Karuna Mcallister, FINAL CANOE INSPECTOR [address], [place], [address], [facility] 10/23/2024 12:29:03 5 75642: Manual therapy completed Karuna Mcallister FINAL CANOE INSPECTOR [address], [place], [address], [facility] 10/23/2024 12:29:03 5 62528 Therapeutic Exercise (1:1) completed KATIE TABOR, DPT [address], [place], [address], [facility] 10/22/2024 14:41:49 5 31466: Hot or Cold Pack completed KATIE TABOR, DPT [address], [place], [address], [facility] 10/22/2024 14:41:49 5 04410: Manual therapy completed KATIE TABOR, DPT [address], [place], [address], [facility] 10/22/2024 14:41:49 5 94877 Therapeutic Exercise (1:1) completed KATIE LEANDER, DPT [address], [place], [address], [facility] 10/21/2024 21:23:04 5 92457: Hot or Cold Pack completed KATIE LEANDER, DPT [address], [place], [address], [facility] 10/21/2024 21:23:04 5 55219: Manual therapy completed KATIE LEANDER, DPT [address], [place], [address], [facility] 10/21/2024 21:23:04 5 77559 Therapeutic Exercise (1:1) completed KATIE LEANDER, DPT [address], [place], [address], [facility] 10/18/2024 13:31:51 5 52800: Hot or Cold Pack completed KATIE LEANDER, DPT [address], [place], [address], [facility] 10/18/2024 13:31:51 5 23474: Manual therapy completed KATIE LEANDER, DPT [address], [place], [address], [facility] 10/18/2024 13:31:51 5 47721 Therapeutic Exercise (1:1) completed KATIE LEANDER, DPT [address], [place], [address], [facility] 10/18/2024 10:39:55 5 25257: Hot or Cold Pack completed KATIE LEANDER, DPT [address], [place], [address], [facility] 10/18/2024 10:39:55 5 81796: Manual therapy completed KATIE LEANDER, DPT [address], [place], [address], [facility] 10/18/2024 10:39:55 5 36261 Therapeutic Exercise (1:1) completed Karuna Mcallister, FINAL CANOE INSPECTOR [address], [place], [address], [facility] 10/16/2024 10:36:33 5 20457: Hot or Cold Pack completed Karuna Maziarz, FINAL CANOE INSPECTOR [address], [place], [address], [facility] 10/16/2024 10:36:33 5 19853: Manual therapy completed Karuna Mcallister FINAL CANOE INSPECTOR [address], [place], [address], [facility] 10/16/2024 10:36:33 5 44619 Therapeutic Exercise (1:1) completed KATIE TABOR, DPT [address], [place], [address], [facility] 10/15/2024 14:32:13 5 10829: Hot or Cold Pack completed KATIE TABOR DPT [address], [place], [address], [facility] 10/15/2024 14:32:13 5 03920: Manual therapy completed KATIE TABOR DPT [address], [place], [address], [facility] 10/15/2024 14:32:13 5 95827 Therapeutic Exercise (1:1) completed Karuna Mcallister PTA [address], [place], [address], [facility] 10/12/2024 10:37:31 5 93975: Hot or Cold Pack completed Karuna Mcallister PTA [address], [place], [address], [facility] 10/12/2024 10:37:31 5 11015: Manual therapy completed Karuna Mcallister FINAL CANOE INSPECTOR [address], [place], [address], [facility] 10/12/2024 10:37:31 5 42722 Therapeutic Exercise (1:1) completed Karuna Mcallister PTA [address], [place], [address], [facility] 10/11/2024 13:50:41 5 49949: Hot or Cold Pack completed Karuna Mcallister PTA [address], [place], [address], [facility] 10/11/2024 13:49:39 5 56477: Manual therapy completed Karuna Mcallister PTA [address], [place], [address], [facility] 10/11/2024 13:22:03 5 39369 Therapeutic Exercise (1:1) completed Karuna Mcallister PTA [address], [place], [address], [facility] 10/10/2024 14:35:45 5 54610: Hot or Cold Pack completed Karuna Mcallister PTA [address], [place], [address], [facility] 10/10/2024 14:35:45 5 97134: Manual therapy completed Karuna Mcallister PTA [address], [place], [address], [facility] 10/10/2024 14:35:45 5 39535 Therapeutic Exercise (1:1) completed Karuna Mcallister PTA [address], [place], [address], [facility] 10/09/2024 11:13:28 5 04860: Hot or Cold Pack completed Karuna Mcallister PTA [address], [place], [address], [facility] 10/09/2024 11:13:28 5 24329: Manual therapy completed Karuna Mcallister FINAL CANOE INSPECTOR [address], [place], [address], [facility] 10/09/2024 11:13:28 5 62027 Therapeutic Exercise (1:1) completed Karuna Mcallister, FINAL CANOE INSPECTOR [address], [place], [address], [facility] 10/05/2024 10:56:08 5 49378: Hot or Cold Pack completed Karuna Mcallister, FINAL CANOE INSPECTOR [address], [place], [address], [facility] 10/05/2024 13:08:33 5 72517: Manual therapy completed Karuna Mcallister, FINAL CANOE INSPECTOR [address], [place], [address], [facility] 10/05/2024 10:56:08 5 38050 Therapeutic Exercise (1:1) completed Karuna Mcallister FINAL CANOE INSPECTOR [address], [place], [address], [facility] 10/03/2024 10:16:54 5 32802: Hot or Cold Pack completed Karuna Mcallister, FINAL CANOE INSPECTOR [address], [place], [address], [facility] 10/03/2024 13:45:37 5 22255: Manual therapy completed Karuna Mcallister FINAL CANOE INSPECTOR [address], [place], [address], [facility] 10/03/2024 10:16:54 5 32891 Therapeutic Exercise (1:1) completed Karuna Mcallister, FINAL CANOE INSPECTOR [address], [place], [address], [facility] 10/02/2024 11:32:31 5 99377: Hot or Cold Pack completed Karuna Mcallister, FINAL CANOE INSPECTOR [address], [place], [address], [facility] 10/02/2024 11:32:31 5 07638: Manual therapy completed Karuna Mcallister FINAL CANOE INSPECTOR [address], [place], [address], [facility] 10/02/2024 11:32:31 5 30587 Therapeutic Exercise (1:1) completed Karuna Mcallister FINAL CANOE INSPECTOR [address], [place], [address], [facility] 10/01/2024 14:30:13 5 90965: Hot or Cold Pack completed Karuna Mcallister FINAL CANOE INSPECTOR [address], [place], [address], [facility] 10/01/2024 14:30:13 5 42592: Manual therapy completed Karuna Mcallister FINAL CANOE INSPECTOR [address], [place], [address], [facility] 10/01/2024 14:30:13 5 94647 Therapeutic Exercise (1:1) completed Karuna Mcallister PTA [address], [place], [address], [facility] 09/28/2024 10:51:54 5 91124: Hot or Cold Pack completed Karuna Mcallister PTA [address], [place], [address], [facility] 09/28/2024 13:13:38 5 89985: Manual therapy completed Karuna Mcallister PTA [address], [place], [address], [facility] 09/28/2024 10:51:54 5 06600 Therapeutic Exercise (1:1) completed Karuna Mcallister PTA [address], [place], [address], [facility] 09/27/2024 13:36:54 5 99738: Hot or Cold Pack completed Karuna Mcallister FINAL CANOE INSPECTOR [address], [place], [address], [facility] 09/27/2024 13:36:54 5 40824: Manual therapy completed Karuna Mcallister FINAL CANOE INSPECTOR [address], [place], [address], [facility] 09/27/2024 13:36:54 5 39826 Therapeutic Exercise (1:1) completed Karuna Mcallister PTA [address], [place], [address], [facility] 09/26/2024 15:26:57 5 78490: Hot or Cold Pack completed Karuna Mcallister PTA [address], [place], [address], [facility] 09/26/2024 15:26:57 5 33075: Manual therapy completed Karuna Mcallister PTA [address], [place], [address], [facility] 09/26/2024 15:26:57 5 34497 Therapeutic Exercise (1:1) completed LAURA VARGAST [address], [place], [address], [facility] 09/25/2024 11:20:31 5 31574: Hot or Cold Pack completed KATIE TABOR DPT [address], [place], [address], [facility] 09/25/2024 11:20:31 5 13768: Manual therapy completed KATIE TABOR DPT [address], [place], [address], [facility] 09/25/2024 11:20:31 5 16379 Therapeutic Exercise (1:1) completed KATIE TABOR DPT [address], [place], [address], [facility] 09/21/2024 11:47:59 5 32519: Hot or Cold Pack completed KATIE TABOR, DPT [address], [place], [address], [facility] 09/21/2024 11:47:59 5 88915: Manual therapy completed KATIE TABOR, DPT [address], [place], [address], [facility] 09/21/2024 11:47:59 5 28815 Therapeutic Exercise (1:1) completed Karuna Mcallister PTA [address], [place], [address], [facility] 09/20/2024 16:22:29 5 52556: Hot or Cold Pack completed Karuna Mcallister PTA [address], [place], [address], [facility] 09/20/2024 17:45:57 5 91189: Manual therapy completed Karuna Mcallister PTA [address], [place], [address], [facility] 09/20/2024 16:22:29 5 77890 Therapeutic Exercise (1:1) completed Karuna Mcallister PTA [address], [place], [address], [facility] 09/19/2024 12:52:45 5 53311: Hot or Cold Pack completed Karuna Mcallister FINAL CANOE INSPECTOR [address], [place], [address], [facility] 09/19/2024 12:52:45 5 51551: Manual therapy completed Karuna Mcallister FINAL CANOE INSPECTOR [address], [place], [address], [facility] 09/19/2024 12:52:45 5 77283 Therapeutic Exercise (1:1) completed Karuna Mcallister FINAL CANOE INSPECTOR [address], [place], [address], [facility] 09/18/2024 12:54:10 5 78296: Hot or Cold Pack completed Karuna Mcallister FINAL CANOE INSPECTOR [address], [place], [address], [facility] 09/18/2024 12:54:10 5 22356: Manual therapy completed Karuna Mcallister FINAL CANOE INSPECTOR [address], [place], [address], [facility] 09/18/2024 12:54:10 5 60875 Therapeutic Exercise (1:1) completed Karuna Mcallister FINAL CANOE INSPECTOR [address], [place], [address], [facility] 09/17/2024 09:25:49 5 76946: Hot or Cold Pack completed Karuna Mcallister FINAL CANOE INSPECTOR [address], [place], [address], [facility] 09/17/2024 10:22:15 5 48679: Manual therapy completed Karuna Mcallister FINAL CANOE INSPECTOR [address], [place], [address], [facility] 09/17/2024 09:25:49 5 63810 Therapeutic Exercise (1:1) completed KATIE TABOR, DPT [address], [place], [address], [facility] 09/14/2024 08:45:30 5 49960: Manual therapy completed KATIE TABOR, DPT [address], [place], [address], [facility] 09/14/2024 08:45:32 5 85166 Therapeutic Exercise (1:1) completed Karuna Maziarz, FINAL CANOE INSPECTOR [address], [place], [address], [facility] 09/13/2024 10:29:32 5 55699: Hot or Cold Pack completed Karuna Mcallister FINAL CANOE INSPECTOR [address], [place], [address], [facility] 09/17/2024 08:05:36 5 25435: Manual therapy completed Karuna Mcallister FINAL CANOE INSPECTOR [address], [place], [address], [facility] 09/17/2024 08:05:26 5 98895 Therapeutic Exercise (1:1) completed LAURA VARGAST [address], [place], [address], [facility] 09/13/2024 10:26:02 5 01993: Low complexity PT Eval completed LAURA VARGAST [address], [place], [address], [facility] 09/13/2024 10:26:04 4 Sports Shoulder 4&1 completed Fabián Blackburn MD [address], [place], [address], [facility] 04/12/2024 11:54:28 Imaging Results None recorded. Procedure Notes None recorded. Medical Equipment None Reported. Allergies Allergen ID Allergen Name Allergen Category Reaction Reaction Severity Criticality Documentation Date Start Date Code Code System Note Provider Name and Address Organization Details Recorded Time 149135 Product containin g penicilli n (product) medicatio n Not available Not available Not available 01/10/2024 84927 8001 SNOMED KARINA ROCA [facility] 16:29:24 Medications Name Sig Start Date [...] Updated DateTime 10/31/2024 180.34 cm 27.9 kg/m2 70372.47 g CHRISTIANO COLLINS [facility] 10/31/2024 10:35:08 Social History None recorded. Functional Status None recorded. Mental Status None recorded. Family History Nothing Reported. Medical History Condition Response Allergies/Hayfever N Coronary Artery Disease N Breathing or lung disorders N Anxiety/Depression N Emphysema N Nerve Disorders N Thyroid Problems N COPD N Pacemaker N Kidney/Bladder Problems N Anemia N Vascular Disease N Heart Trouble Y Heart Attack (CT) N Gastrointestinal Disease N Cholesterol Y Diabetes N Autoimmune disease N Inflammatory Joint disease N Bleeding Disorder N Orthotics N Seizures/Epilepsy N Arthritis N Blood Clot N AIDS/HIV N Congestive Heart Failure (CHF) N Acid Reflux (GERD) N Cancer N Stroke N Asthma N Circulation Problems N Peripheral Vascular Disease N Sleep Apnea N Hepatitis N Heart Disease N Rheumatoid Arthritis N Pulmonary Embolism N Arrhythmia N Headaches N Fibromyalgia N Hypertension N Osteoporosis N Past Encounters Encounter ID Performer Location Encounter Start Date Encounter Closed Date Diagnosis/Indication Diagnosis SNOMED-CT Code Diagnosis ICD10 Code Diagnosis IMO Codes Diagnosis Note [id number] [facility] [address] [place] [address] 01/10/2024 08:22:25 02/15/2024 08:28:56 Pain of left knee joint 8632492788 24491 M25.167 [id number] [facility] [address] [place] [address] 01/18/2024 10:37:22 02/22/2024 11:05:01 [id number] [facility] [address] [place] [address] 04/12/2024 10:49:59 05/03/2024 11:45:57 Pain of left shoulder joint [id number] [id number] M25.166 [id number] [facility] [address] [place] [address] 05/23/2024 08:30:53 06/14/2024 14:12:04 Calcific tendinitis of left shoulder 5082946328 92932 M75.32 [id number] [facility] [address] [place] [address] 08/09/2024 13:50:00 08/21/2024 10:44:27 Calcific tendinitis of left shoulder 9199991112 50564 M75.32 [id number] MD [facility] [address] [place] [address] 08/27/2024 13:13:41 09/04/2024 12:30:44 Pain of left shoulder joint 9893016096 [id number] M25.512 [id number] KATIE RUBINTAINE, DPT [facility] [address] [place] [address] 09/12/2024 08:51:29 09/12/2024 09:46:38 Impingement syndrome of left shoulder region 4757281872 68752 M75.42 [id number] Karuna Mcallister PTA [facility] [address] [place] [address] 09/13/2024 12:33:33 09/13/2024 15:14:03 Impingement syndrome of left shoulder region [id number] 38601 M75.42 [id number] KATIE RUBINTAINE, DPT [facility] [address] [place] [address] 09/14/2024 08:24:40 09/14/2024 09:21:48 Impingement syndrome of left shoulder region 2663321677 30044 M75.42 [id number] Karuna Mcallister PTA [facility] [address] [place] [address] 09/17/2024 09:23:01 09/17/2024 10:29:01 Impingement syndrome of left shoulder region 3086648430 98087 M75.42 [id number] [facility] [address] [facility] [place] [address] 09/18/2024 11:04:43 10/01/2024 15:20:39 Adhesive capsulitis of left shoulder 8878740022 11654 M75.02 [id number] Karuna Mcallister PTA [facility] [address] [place] [address] 09/18/2024 12:44:51 09/18/2024 14:39:16 Impingement syndrome of left shoulder region 5476901338 36460 M75.42 [id number] Karuna Mcallister PTA [facility] [address] [place] [address] 09/19/2024 12:46:21 09/19/2024 13:27:44 Impingement syndrome of left shoulder region [id number] 50725 M75.42 [id number] Karuna Maziarz, FINAL CANOE INSPECTOR [facility] [address] [place] [address] 09/20/2024 16:17:38 09/20/2024 17:22:19 Impingement syndrome of left shoulder region [id number] 00650 M75.42 [id number] KATIE TABOR, DPT [facility] [address] [place] [address] 09/21/2024 10:21:43 09/21/2024 11:15:34 Impingement syndrome of left shoulder region [id number] M75.42 [id number] KATIE RUBINTAINE, DPT [facility] [address] [place] [address] 09/25/2024 11:15:47 09/25/2024 11:58:01 Impingement syndrome of left shoulder region [id number] M75.42 [id number] Karuna Mcallister FINAL CANOE INSPECTOR [facility] [address] [place] [address] 09/26/2024 15:15:41 09/26/2024 15:56:10 Impingement syndrome of left shoulder region [id number] M75.42 [id number] Karuna Mcallister FINAL CANOE INSPECTOR [facility] [address] [place] [address] 09/27/2024 14:49:44 09/27/2024 16:17:57 Impingement syndrome of left shoulder region [id number] M75.42 [id number] Karuna Mcallister FINAL CANOE INSPECTOR [facility] [address] [place] [address] 09/28/2024 10:14:01 09/28/2024 11:18:22 Impingement syndrome of left shoulder region [id number] M75.42 [id number] Karuna Mcallister FINAL CANOE INSPECTOR [facility] [address] [place] [address] 10/01/2024 14:21:33 10/01/2024 15:28:19 Impingement syndrome of left shoulder region [id number] M75.42 [id number] Karuna Mcallister FINAL CANOE INSPECTOR [facility] [address] [place] [address] 10/02/2024 11:15:27 10/02/2024 12:27:43 Impingement syndrome of left shoulder region [id number] M75.42 [id number] Karuna Mcallister, FINAL CANOE INSPECTOR [facility] [address] [place] [address] 10/03/2024 11:50:42 10/03/2024 12:36:56 Impingement syndrome of left shoulder region [id number] M75.42 [id number] Karuna Mcallister, FINAL CANOE INSPECTOR [facility] [address] [place] [address] 10/05/2024 10:53:53 10/05/2024 13:49:18 Impingement syndrome of left shoulder region [id number] 60133 M75.42 [id number] Karuna Mcallister, FINAL CANOE INSPECTOR [facility] [address] [place] [address] 10/09/2024 10:49:24 10/09/2024 13:01:25 Impingement syndrome of left shoulder region [id number] M75.42 [id number] Karuna Mcallister, FINAL CANOE INSPECTOR [facility] [address] [place] [address] 10/10/2024 14:16:58 10/10/2024 15:13:04 Impingement syndrome of left shoulder region [id number] M75.42 [id number] Karuna Mcallister, FINAL CANOE INSPECTOR [facility] [address] [place] [address] 10/11/2024 12:51:07 10/11/2024 15:30:50 Impingement syndrome of left shoulder region [id number] M75.42 [id number] Karuna Mcallister, FINAL CANOE INSPECTOR [facility] [address] [place] [address] 10/12/2024 10:23:30 10/12/2024 11:15:52 Impingement syndrome of left shoulder region [id number] 41044 M75.42 [id number] KATIE TABOR, DPT [facility] [address] [place] [address] 10/15/2024 14:23:27 10/15/2024 15:22:19 Impingement syndrome of left shoulder region [id number] M75.42 [id number] Karuna Mcallister, FINAL CANOE INSPECTOR [facility] [address] [place] [address] 10/16/2024 10:25:42 10/16/2024 11:50:54 Impingement syndrome of left shoulder region [id number] M75.42 [id number] KATIE TABOR, DPT [facility] [address] [place] [address] 10/17/2024 12:24:55 10/17/2024 14:25:56 Impingement syndrome of left shoulder region [id number] M75.42 [id number] KATIE TABOR, DPT [facility] [address] [place] [address] 10/18/2024 12:22:12 10/18/2024 13:05:56 Impingement syndrome of left shoulder region [id number] 59135 M75.42 [id number] KATIE TABOR, LAURAT [facility] [address] [place] [address] 10/19/2024 09:20:09 10/19/2024 10:07:16 Impingement syndrome of left shoulder region [id number] M75.42 [id number] KATIE TABOR, DPT [facility] [address] [place] [address] 10/22/2024 10:50:56 10/22/2024 11:50:14 Impingement syndrome of left shoulder region [id number] [id number] M75.42 [id number] Karuna Mcallister FINAL CANOE INSPECTOR [facility] [address] [place] [address] 10/23/2024 12:23:02 10/23/2024 13:36:03 Impingement syndrome of left shoulder region [id number] M75.42 [id number] KATIE TABOR, DPT [facility] [address] [place] [address] 10/26/2024 10:30:02 10/26/2024 12:40:35 Impingement syndrome of left shoulder region [id number] M75.42 [id number] [facility] [address] [place] [address] 10/30/2024 10:19:39 10/30/2024 11:16:51 Impingement syndrome of left shoulder region [id number] M75.42 [id number] MD [facility] [address] [place] [address] 10/31/2024 10:19:19 11/08/2024 16:05:04 Osteoarthritis of joint of left shoulder region [id number] 60571 M19.728 [id number] Health Concerns Section Related Observation LastModified by Organization Detai ls LastModified Time None Recorded Concern Status LastModified by Organization Details LastModified Time None Recorded Advance Directives Directive None Recorded Payers Insurance Date Sequence Insurance Name Policy Number Policy Ernandez Covered Member ID Ernandez Member ID Guarantor Name 11/08/2024 1 [facility]: MEDICARE PPO BLUE (MEDICARE REPLACEMENT PPO) [id number] Tesfaye Carl [id number] Tesfaye Carl Notes Date Note Type Note Provider Name and Address Organization Details Recorded Time 10/22/2024 text/html Pt reports that he is doing well today. Pt notes that he continues to feel that his shoulder is slowly improving. KATIE TABOR, LAURAT [address] [facility], [place], [address], [facility] 10/22/2024 14:42:57 10/23/2024 text/html Pt states he feels his shoulder is slowly getting better with more ROM and able to do more. Karuna Mcallister, FINAL CANOE INSPECTOR [address], [place], [address], [facility] 10/23/2024 16:08:13 10/26/2024 text/html Pt reports that he is doing well today. Pt notes that he feels that his shoulder continues to loosen up and get better ROM. Pt says that he is doing his exercises consistently at home. LAURA VARGAST [address], [place], [address], [facility] 10/28/2024 15:50:06 10/30/2024 text/html Pt reports that he is doing well today. Pt notes that the shoulder continues to feel looser and easier to use. KATIE TABOR, DPT [address] [address], [place], [address], [facility] 10/30/2024 15:29:43
== END 2025-05-22 13:17 | disposition home or self-care (01) ==
LOC: HO.HCS 13:00
PROVIDERS: PCP Internal Medicine; Visit Provider Internal Medicine
DX: I48.0 Paroxysmal atrial fibrillation (principal); I49.8 Other specified cardiac arrhythmias; I49.3 Ventricular premature depolarization; I35.9 Nonrheumatic aortic valve disorder, unspecified
CPT/HCPCS: 93010; 99214; G2211

== ENCOUNTER → 2025-05-22 12:59 | Outpatient (BNVA) | payer MEDICARE, SELFPAY | PROVIDERS: PCP Internal Medicine; Visit Provider Internal Medicine | DX: I48.0 Paroxysmal atrial fibrillation (principal); I49.8 Other specified cardiac arrhythmias; I49.3 Ventricular premature depolarization; I35.9 Nonrheumatic aortic valve disorder, unspecified; I44.0 Atrioventricular block, first degree | CPT/HCPCS: 93005; 99212 ==

== ENCOUNTER 2025-06-04 08:09 | Outpatient (REF) | payer MEDICARE, SELFPAY ==
--- NOTE | ~2025-06-04 | MR_ITS ---
EXAMINATION: MR BRAIN WITHOUT AND WITH CONTRAST CLINICAL INFORMATION: R 41.3 COMPARISON: None available. TECHNIQUE: Multiplanar, multisequence MRI of the brain was obtained before and after the intravenous administration of 10.0 mL gadolinium based (Gadavist) without reported immediate complications.. FINDINGS: Focal punctate susceptibility signal within the posterior aspect of the head, right caudate nucleus. No acute intracranial hemorrhage, mass effect, midline shift, hydrocephalus or herniation. No abnormal enhancement within the intra-axial or the extra-axial compartment of the cranium. Numerous old lacunar infarcts in the basal ganglia with the cribriform pattern in the striatum nuclei. Old lacunar infarcts in the may. Flow-void signal within the main cerebral vessels is normal. Prominence of the extra-axial space CSF spaces cerebral sulci and ventricles. Sellar/suprasellar region is normal. Craniocervical junction is intact with normal position of the cerebellar tonsils. MR/MR head/brain wo/w con IMPRESSION: Acute nonhemorrhagic ischemia, head right caudate nucleus. Small vessel occlusive disease. Global cerebral atrophy. No abnormal enhancement. Electronically signed by: Alejandro Arnold MD 06/04/2025 10:04 AM EST
--- OUTSIDE RECORDS SUMMARY | 2025-06-04 08:14 | XMS_ITS | Data Portability ---
Author Organization [facility], [facility] Address [address] [place] [address] Care Team Providers Care Party Chief Name Role Phone ADRIENNE CHARLES Primary Care Provider Assessment Encounter Date Assessment Date Assessment LastModified by Organization Details LastModified Time 10/22/2024 10/22/2024 Assessment: Pt able to do all exercise with minimal issue. Pt noted some fatigue and end range stretching but no significant discomfort. Plan: Cont POC. [email or web address] Not available 10/22/2024 14:41:49 10/23/2024 10/23/2024 Assessment: Slow and steady improvement in P/AA/A ROM though end range tightness. Plan: Cont POC. [email or web address] Not available 10/23/2024 16:07:36 10/26/2024 10/26/2024 Assessment: Pt able to do all exercise with minimal issue. Pt noted some fatigue but no increase in pain. Pt needed occasional verbal cues to correct form. Plan: Cont POC. [email or web address] Not available 10/28/2024 15:49:42 10/30/2024 10/30/2024 Assessment: Pt able to do all exercise with minimal issue. Pt noted some fatigue with therex but no increase in symptoms. Plan: Cont POC. [email or web address] Not available 10/30/2024 15:29:29 10/31/2024 10/31/2024 Procedure/Date:l ef t shoulder decompression 09/11/24 History: Doing well, no complications Exam: Wound benign, motion 90% of full Radiographs: none Clinical Status: Doing well postoperatively Work Status/Plan:allowe dfull duty work Physical Therapy Status: Continue per protocol Medication Prescriptions: [none given] Plan/Follow up:p.r.n. [facility] speech recognition shaker repairer software was used to create portions of [...] and Address Organization Details Recorded Time 5 23989 Therapeutic Exercise (1:1) completed KATIE LEANDER, DPT [address] [facility], [place], [address], [facility] 10/30/2024 15:28:42 5 45722: Hot or Cold Pack completed KATIE LEANDER, DPT [address] [facility], [place], [address], [facility] 10/30/2024 15:28:42 5 09809: Manual therapy completed KATIE LEANDER, DPT [address], [place], [address], [facility] 10/30/2024 15:28:42 5 05971 Therapeutic Exercise (1:1) completed KATIE LEANDER, DPT [address], [place], [address], [facility] 10/28/2024 15:44:53 5 45263: Hot or Cold Pack completed KATIE LEANDER, DPT [address], [place], [address], [facility] 10/28/2024 15:44:53 5 59004: Manual therapy completed KATIE LEANDER, DPT [address], [place], [address], [facility] 10/28/2024 15:44:53 5 61716 Therapeutic Exercise (1:1) completed Karuna Mcallister, SLURRY TANK TENDER [address], [place], [address], [facility] 10/23/2024 12:29:03 5 51097: Hot or Cold Pack completed Karuna Mcallister, SLURRY TANK TENDER [address], [place], [address], [facility] 10/23/2024 12:29:03 5 17262: Manual therapy completed Karuna Mcallister SLUR[employer] TANK TENDER [address], [place], [address], [facility] 10/23/2024 12:29:03 5 18763 Therapeutic Exercise (1:1) completed KATIE TABOR, DPT [address], [place], [address], [facility] 10/22/2024 14:41:49 5 02599: Hot or Cold Pack completed KATIE TABOR, DPT [address], [place], [address], [facility] 10/22/2024 14:41:49 5 90278: Manual therapy completed KATIE TABOR, DPT [address], [place], [address], [facility] 10/22/2024 14:41:49 5 81472 Therapeutic Exercise (1:1) completed KATIE LEADNER, DPT [address], [place], [address], [facility] 10/21/2024 21:23:04 5 26193: Hot or Cold Pack completed KATIE LEANDER, DPT [address], [place], [address], [facility] 10/21/2024 21:23:04 5 26574: Manual therapy completed KATIE LEANDER, DPT [address], [place], [address], [facility] 10/21/2024 21:23:04 5 66817 Therapeutic Exercise (1:1) completed KATIE LEANDER, DPT [address], [place], [address], [facility] 10/18/2024 13:31:51 5 75656: Hot or Cold Pack completed KATIE LEANDER, DPT [address], [place], [address], [facility] 10/18/2024 13:31:51 5 09505: Manual therapy completed KATIE LEANDER, DPT [address], [place], [address], [facility] 10/18/2024 13:31:51 5 73806 Therapeutic Exercise (1:1) completed KATIE LEANDER, DPT [address], [place], [address], [facility] 10/18/2024 10:39:55 5 17581: Hot or Cold Pack completed KATIE LEANDER, DPT [address], [place], [address], [facility] 10/18/2024 10:39:55 5 33268: Manual therapy completed KATIE LEANDER, DPT [address], [place], [address], [facility] 10/18/2024 10:39:55 5 28210 Therapeutic Exercise (1:1) completed Karuna Mcallister, SLURRY TANK TENDER [address], [place], [address], [facility] 10/16/2024 10:36:33 5 73541: Hot or Cold Pack completed Karuna Maziarz, SLURRY TANK TENDER [address], [place], [address], [facility] 10/16/2024 10:36:33 5 61421: Manual therapy completed Karuna Mcallister SLURRY TANK TENDER [address], [place], [address], [facility] 10/16/2024 10:36:33 5 72825 Therapeutic Exercise (1:1) completed KATIE TABOR, DPT [address], [place], [address], [facility] 10/15/2024 14:32:13 5 04396: Hot or Cold Pack completed KATIE TABOR DPT [address], [place], [address], [facility] 10/15/2024 14:32:13 5 10031: Manual therapy completed KATIE TABOR DPT [address], [place], [address], [facility] 10/15/2024 14:32:13 5 12686 Therapeutic Exercise (1:1) completed Karuna Mcallister PTA [address], [place], [address], [facility] 10/12/2024 10:37:31 5 48355: Hot or Cold Pack completed Karuna Mcallister PTA [address], [place], [address], [facility] 10/12/2024 10:37:31 5 64257: Manual therapy completed Karuna Mcallister SLURRY TANK TENDER [address], [place], [address], [facility] 10/12/2024 10:37:31 5 94190 Therapeutic Exercise (1:1) completed Karuna Mcallister PTA [address], [place], [address], [facility] 10/11/2024 13:50:41 5 82889: Hot or Cold Pack completed Karuna Mcallister PTA [address], [place], [address], [facility] 10/11/2024 13:49:39 5 27608: Manual therapy completed Karuna Mcallister PTA [address], [place], [address], [facility] 10/11/2024 13:22:03 5 90771 Therapeutic Exercise (1:1) completed Karuna Mcallister PTA [address], [place], [address], [facility] 10/10/2024 14:35:45 5 57859: Hot or Cold Pack completed Karuna Mcallister PTA [address], [place], [address], [facility] 10/10/2024 14:35:45 5 55123: Manual therapy completed Karuna Mcallister PTA [address], [place], [address], [facility] 10/10/2024 14:35:45 5 93978 Therapeutic Exercise (1:1) completed Karuna Mcallister PTA [address], [place], [address], [facility] 10/09/2024 11:13:28 5 43723: Hot or Cold Pack completed Karuna Mcallister PTA [address], [place], [address], [facility] 10/09/2024 11:13:28 5 51941: Manual therapy completed Karuna Mcallister SLURRY TANK TENDER [address], [place], [address], [facility] 10/09/2024 11:13:28 5 56516 Therapeutic Exercise (1:1) completed Karuna Mcallister, SLURRY TANK TENDER [address], [place], [address], [facility] 10/05/2024 10:56:08 5 63149: Hot or Cold Pack completed Karuna Mcallister, SLURRY TANK TENDER [address], [place], [address], [facility] 10/05/2024 13:08:33 5 64870: Manual therapy completed Karuna Mcallister, SLURRY TANK TENDER [address], [place], [address], [facility] 10/05/2024 10:56:08 5 79305 Therapeutic Exercise (1:1) completed Karuna Mcallister SLURRY TANK TENDER [address], [place], [address], [facility] 10/03/2024 10:16:54 5 90935: Hot or Cold Pack completed Karuna Mcallister, SLURRY TANK TENDER [address], [place], [address], [facility] 10/03/2024 13:45:37 5 55087: Manual therapy completed Karuna Mcallister SLURRY TANK TENDER [address], [place], [address], [facility] 10/03/2024 10:16:54 5 86577 Therapeutic Exercise (1:1) completed Karuna Mcallister, SLURRY TANK TENDER [address], [place], [address], [facility] 10/02/2024 11:32:31 5 97763: Hot or Cold Pack completed Karuna Mcallister, SLURRY TANK TENDER [address], [place], [address], [facility] 10/02/2024 11:32:31 5 29703: Manual therapy completed Karuna Mcallister SLURRY TANK TENDER [address], [place], [address], [facility] 10/02/2024 11:32:31 5 06031 Therapeutic Exercise (1:1) completed Karuna Mcallister SLURRY TANK TENDER [address], [place], [address], [facility] 10/01/2024 14:30:13 5 20481: Hot or Cold Pack completed Karuna Mcallister SLURRY TANK TENDER [address], [place], [address], [facility] 10/01/2024 14:30:13 5 58636: Manual therapy completed Karuna Mcallister SLURRY TANK TENDER [address], [place], [address], [facility] 10/01/2024 14:30:13 5 42691 Therapeutic Exercise (1:1) completed Karuna Mcallister PTA [address], [place], [address], [facility] 09/28/2024 10:51:54 5 23757: Hot or Cold Pack completed Karuna Mcallister PTA [address], [place], [address], [facility] 09/28/2024 13:13:38 5 71913: Manual therapy completed Karuna Mcallister PTA [address], [place], [address], [facility] 09/28/2024 10:51:54 5 29885 Therapeutic Exercise (1:1) completed Karuna Mcallister PTA [address], [place], [address], [facility] 09/27/2024 13:36:54 5 02624: Hot or Cold Pack completed Karuna Mcallister SLURRY TANK TENDER [address], [place], [address], [facility] 09/27/2024 13:36:54 5 29225: Manual therapy completed Karuna Mcallister SLURRY TANK TENDER [address], [place], [address], [facility] 09/27/2024 13:36:54 5 36927 Therapeutic Exercise (1:1) completed Karuna Mcallister PTA [address], [place], [address], [facility] 09/26/2024 15:26:57 5 34618: Hot or Cold Pack completed Karuna Mcallister PTA [address], [place], [address], [facility] 09/26/2024 15:26:57 5 78900: Manual therapy completed Karuna Mcallister PTA [address], [place], [address], [facility] 09/26/2024 15:26:57 5 93361 Therapeutic Exercise (1:1) completed LAURA VARGAST [address], [place], [address], [facility] 09/25/2024 11:20:31 5 45900: Hot or Cold Pack completed KATIE TABOR DPT [address], [place], [address], [facility] 09/25/2024 11:20:31 5 30703: Manual therapy completed KATIE TABOR DPT [address], [place], [address], [facility] 09/25/2024 11:20:31 5 71834 Therapeutic Exercise (1:1) completed KATIE TABOR DPT [address], [place], [address], [facility] 09/21/2024 11:47:59 5 12016: Hot or Cold Pack completed KATIE TABOR, DPT [address], [place], [address], [facility] 09/21/2024 11:47:59 5 85271: Manual therapy completed KATIE TABOR, DPT [address], [place], [address], [facility] 09/21/2024 11:47:59 5 38485 Therapeutic Exercise (1:1) completed Karuna Mcallister PTA [address], [place], [address], [facility] 09/20/2024 16:22:29 5 95644: Hot or Cold Pack completed Karuna Mcallister PTA [address], [place], [address], [facility] 09/20/2024 17:45:57 5 10147: Manual therapy completed Karuna Mcallister PTA [address], [place], [address], [facility] 09/20/2024 16:22:29 5 25539 Therapeutic Exercise (1:1) completed Karuna Mcallister PTA [address], [place], [address], [facility] 09/19/2024 12:52:45 5 64762: Hot or Cold Pack completed Karuna Mcallister SLURRY TANK TENDER [address], [place], [address], [facility] 09/19/2024 12:52:45 5 24751: Manual therapy completed Karuna Mcallister SLURRY TANK TENDER [address], [place], [address], [facility] 09/19/2024 12:52:45 5 97338 Therapeutic Exercise (1:1) completed Karuna Mcallister SLURRY TANK TENDER [address], [place], [address], [facility] 09/18/2024 12:54:10 5 37237: Hot or Cold Pack completed Karuna Mcallister SLURRY TANK TENDER [address], [place], [address], [facility] 09/18/2024 12:54:10 5 17902: Manual therapy completed Karuna Mcallister SLURRY TANK TENDER [address], [place], [address], [facility] 09/18/2024 12:54:10 5 43611 Therapeutic Exercise (1:1) completed Karuna Mcallister SLURRY TANK TENDER [address], [place], [address], [facility] 09/17/2024 09:25:49 5 99640: Hot or Cold Pack completed Karuna Mcallister SLURRY TANK TENDER [address], [place], [address], [facility] 09/17/2024 10:22:15 5 32710: Manual therapy completed Karuna Mcallister SLURRY TANK TENDER [address], [place], [address], [facility] 09/17/2024 09:25:49 5 88211 Therapeutic Exercise (1:1) completed KATIE TABOR, DPT [address], [place], [address], [facility] 09/14/2024 08:45:30 5 52447: Manual therapy completed KATIE TABOR, DPT [address], [place], [address], [facility] 09/14/2024 08:45:32 5 27172 Therapeutic Exercise (1:1) completed Karuna Maziarz, SLURRY TANK TENDER [address], [place], [address], [facility] 09/13/2024 10:29:32 5 85461: Hot or Cold Pack completed Karuna Mcallister SLURRY TANK TENDER [address], [place], [address], [facility] 09/17/2024 08:05:36 5 52684: Manual therapy completed Karuna Mcallister SLURRY TANK TENDER [address], [place], [address], [facility] 09/17/2024 08:05:26 5 75157 Therapeutic Exercise (1:1) completed LAURA VARGAST [address], [place], [address], [facility] 09/13/2024 10:26:02 5 41824: Low complexity PT Eval completed LAURA VARGAST [address], [place], [address], [facility] 09/13/2024 10:26:04 4 Sports Shoulder 4&1 completed Fabián Blackburn MD [address], [place], [address], [facility] 04/12/2024 11:54:28 Imaging Results None recorded. Procedure Notes None recorded. Medical Equipment None Reported. Allergies Allergen ID Allergen Name Allergen Category Reaction Reaction Severity Criticality Documentation Date Start Date Code Code System Note Provider Name and Address Organization Details Recorded Time 845168 Product containin g penicilli n (product) medicatio n Not available Not available Not available 01/10/2024 66273 8001 SNOMED KARINA ROCA [facility] 16:29:24 Medications Name Sig Start Date Stop [...] Updated DateTime 10/31/2024 180.34 cm 27.9 kg/m2 37722.47 g CHRISTIANO COLLINS [facility] 10/31/2024 10:35:08 Social History None recorded. Functional Status None recorded. Mental Status None recorded. Family History Nothing Reported. Medical History Condition Response Allergies/Hayfever N Coronary Artery Disease N Breathing or lung disorders N Anxiety/Depression N Emphysema N Nerve Disorders N Thyroid Problems N COPD N Pacemaker N Kidney/Bladder Problems N Anemia N Vascular Disease N Heart Trouble Y Gastrointestinal Disease N Heart Attack (SC) N Cholesterol Y Diabetes N Autoimmune disease [...] ICD10 Code Diagnosis IMO Codes Diagnosis Note [id number] [facility] [address] [place] [address] 01/10/2024 08:22:25 02/15/2024 08:28:56 Pain of left knee joint 9025904088 34130 M25.380 [id number] [facility] [address] [place] [address] 01/18/2024 10:37:22 02/22/2024 11:05:01 [id number] [facility] [address] [place] [address] 04/12/2024 10:49:59 05/03/2024 11:45:57 Pain of left shoulder joint 8159602681 9439054 M25.111 [id number] [facility] [address] [place] [address] 05/23/2024 08:30:53 06/14/2024 14:12:04 Calcific tendinitis of left shoulder 3102832011 06307 M75.32 [id number] [facility] [address] [place] [address] 08/09/2024 13:50:00 08/21/2024 10:44:27 Calcific tendinitis of left shoulder 7879116701 83240 M75.32 [id number] MD [facility] [address] [place] [address] 08/27/2024 13:13:41 09/04/2024 12:30:44 Pain of left shoulder joint 1151254833 5906508 M25.512 [id number] KATIE RUBINTAINE, DPT [facility] [address] [place] [address] 09/12/2024 08:51:29 09/12/2024 09:46:38 Impingement syndrome of left shoulder region 2646936018 34121 M75.42 [id number] Karuna Mcallister PTA [facility] [address] [place] [address] 09/13/2024 12:33:33 09/13/2024 15:14:03 Impingement syndrome of left shoulder region 4590978189 51420 M75.42 [id number] KATIE RUBINTAINE, DPT [facility] [address] [place] [address] 09/14/2024 08:24:40 09/14/2024 09:21:48 Impingement syndrome of left shoulder region 9279107167 17445 M75.42 [id number] Karuna Mcallister PTA [facility] [address] [place] [address] 09/17/2024 09:23:01 09/17/2024 10:29:01 Impingement syndrome of left shoulder region 4084661439 13956 M75.42 [id number] [facility] [address] [facility] [place] [address] 09/18/2024 11:04:43 10/01/2024 15:20:39 Adhesive capsulitis of left shoulder 2947338765 86757 M75.02 [id number] Karuna Mcallister PTA [facility] [address] [place] [address] 09/18/2024 12:44:51 09/18/2024 14:39:16 Impingement syndrome of left shoulder region 5573826965 76926 M75.42 [id number] Karuna Mcallister PTA [facility] [address] [place] [address] 09/19/2024 12:46:21 09/19/2024 13:27:44 Impingement syndrome of left shoulder region 6236816171 79964 M75.42 [id number] Karuna Maziarz, SLURRY TANK TENDER [facility] [address] [place] [address] 09/20/2024 16:17:38 09/20/2024 17:22:19 Impingement syndrome of left shoulder region 7584990670 05717 M75.42 [id number] KATIE TABOR, DPT [facility] [address] [place] [address] 09/21/2024 10:21:43 09/21/2024 11:15:34 Impingement syndrome of left shoulder region [id number] 75502 M75.42 [id number] KATIE RUBINTAINE, DPT [facility] [address] [place] [address] 09/25/2024 11:15:47 09/25/2024 11:58:01 Impingement syndrome of left shoulder region 5667148604 75904 M75.42 [id number] Karuna Mcallister SLUR[employer] TANK TENDER [facility] [address] [place] [address] 09/26/2024 15:15:41 09/26/2024 15:56:10 Impingement syndrome of left shoulder region 3868292108 82691 M75.42 [id number] Karuna Mcallister SLUR[employer] T[employer] TENDER [facility] [address] [place] [address] 09/27/2024 14:49:44 09/27/2024 16:17:57 Impingement syndrome of left shoulder region 2337000871 06547 M75.42 [id number] Karuna Mcallister SLUR[employer] T[employer] TENDER [facility] [address] [place] [address] 09/28/2024 10:14:01 09/28/2024 11:18:22 Impingement syndrome of left shoulder region 1138792690 91473 M75.42 [id number] Karuna Mcallister SLUR[employer] T[employer] TENDER [facility] [address] [place] [address] 10/01/2024 14:21:33 10/01/2024 15:28:19 Impingement syndrome of left shoulder region 7664362247 96039 M75.42 [id number] Karuna Mcallister SLUR[employer] T[employer] TENDER [facility] [address] [place] [address] 10/02/2024 11:15:27 10/02/2024 12:27:43 Impingement syndrome of left shoulder region [id number] 93595 M75.42 [id number] Karuna Mcallister, SLURRY TANK TENDER [facility] [address] [place] [address] 10/03/2024 11:50:42 10/03/2024 12:36:56 Impingement syndrome of left shoulder region 6930355511 93184 M75.42 [id number] Karuna Mcallister, SLURRY TANK TENDER [facility] [address] [place] [address] 10/05/2024 10:53:53 10/05/2024 13:49:18 Impingement syndrome of left shoulder region 2354177440 02996 M75.42 [id number] Karuna Mcallister, SLURRY TANK TENDER [facility] - [facility] [address] [place] [address] 10/09/2024 10:49:24 10/09/2024 13:01:25 Impingement syndrome of left shoulder region [id number] M75.42 [id number] Karuna Mcallister, [employer] [facility] - [facility] [address] [place] [address] 10/10/2024 14:16:58 10/10/2024 15:13:04 Impingement syndrome of left shoulder region [id number] M75.42 [id number] Karuna Mcallister, [employer] [facility] - [facility] [address] [place] [address] 10/11/2024 12:51:07 10/11/2024 15:30:50 Impingement syndrome of left shoulder region [id number] M75.42 [id number] Karuna Mcallister, [employer] [facility] - [facility] [address] [place] [address] 10/12/2024 10:23:30 10/12/2024 11:15:52 Impingement syndrome of left shoulder region [id number] M75.42 [id number] KATIE TABOR, DPT [facility] - [facility] [address] [place] [address] 10/15/2024 14:23:27 10/15/2024 15:22:19 Impingement syndrome of left shoulder region [id number] M75.42 [id number] Karuna Mcallister, [employer] [place] - [facility] [address] [place] [address] 10/16/2024 10:25:42 10/16/2024 11:50:54 Impingement syndrome of left shoulder region [id number] M75.42 [id number] KATIE TABOR, DPT [facility] - [facility] [address] [place] [address] 10/17/2024 12:24:55 10/17/2024 14:25:56 Impingement syndrome of left shoulder region [id number] M75.42 [id number] KATIE TABOR, DPT [facility] - [facility] [address] [place] [address] 10/18/2024 12:22:12 10/18/2024 13:05:56 Impingement syndrome of left shoulder region [id number] M75.42 [id number] KATIE TABOR, LAURAT [facility] - [facility] [address] [place] [address] 10/19/2024 09:20:09 10/19/2024 10:07:16 Impingement syndrome of left shoulder region [id number] M75.42 [id number] KATIE TABOR, DPT [place] - [facility] [address] [place] [address] 10/22/2024 10:50:56 10/22/2024 11:50:14 Impingement syndrome of left shoulder region [id number] M75.42 [id number] Karuna Mcallister [employer] [place] - [facility] [address] [place] [address] 10/23/2024 12:23:02 10/23/2024 13:36:03 Impingement syndrome of left shoulder region [id number] M75.42 [id number] KATIE TABOR, DPT [place] - [facility] [address] [place] [address] 10/26/2024 10:30:02 10/26/2024 12:40:35 Impingement syndrome of left shoulder region [id number] M75.42 [id number] [facility] [address] [place] [address] 10/30/2024 10:19:39 10/30/2024 11:16:51 Impingement syndrome of left shoulder region [id number] M75.42 [id number] MD [facility] Toney [address] [place] [address] 10/31/2024 10:19:19 11/08/2024 16:05:04 Osteoarthritis of joint of left shoulder region [id number] M19.951 [id number] Health Concerns Section Related Observation LastModified by Organization Detai ls LastModified Time None Recorded Concern Status LastModified by Organization Details LastModified Time None Recorded Advance Directives Directive None Recorded Payers Insurance Date Sequence Insurance Name Policy Number Policy Ernandez Covered Member ID Ernandez Member ID Guarantor Name 11/08/2024 1 [facility]: MEDICARE PPO BLUE (MEDICARE REPLACEMENT PPO) [id number] Tesfaye Carl [id number] Tesfaye Carl Notes Date Note Type Note Provider Name and Address Organization Details Recorded Time 10/22/2024 text/html Pt reports that he is doing well today. Pt notes that he continues to feel that his shoulder is slowly improving. KATIE TABOR, LAURAT [address] [facility], [place], [address], [facility] 10/22/2024 14:42:57 10/23/2024 text/html Pt states he feels his shoulder is slowly getting better with more ROM and able to do more. Karuna Mcallister, [employer] [address], [place], [address], [facility] 10/23/2024 16:08:13 10/26/2024 text/html Pt reports that he is doing well today. Pt notes that he feels that his shoulder continues to loosen up and get better ROM. Pt says that he is doing his exercises consistently at home. LAURA VARGAST [address], [place], [address], [facility] 10/28/2024 15:50:06 10/30/2024 text/html Pt reports that he is doing well today. Pt notes that the shoulder continues to feel looser and easier to use. KATIE TABOR, DPT [address], [place], [address], [facility] 10/30/2024 15:29:43
== END 2025-06-04 08:10 | disposition home or self-care (01) ==
LOC: HO.MRI 08:09
PROVIDERS: PCP Internal Medicine; Visit Provider Physician Assistant Medical
DX: R41.3 Other amnesia (principal); G47.33 Obstructive sleep apnea (adult) (pediatric)
CPT/HCPCS: 70553; A9585

== ENCOUNTER → 2025-06-04 08:09 | Outpatient (BNV) | payer MEDICARE, SELFPAY | PROVIDERS: PCP Internal Medicine; Visit Provider Radiology Diagnostic Radiology | DX: I67.82 Cerebral ischemia (principal); G31.89 Other specified degenerative diseases of nervous system | CPT/HCPCS: 70553 ==